=== PATIENT | female | born 1935 | race Caucasian/White ===

== ENCOUNTER 2016-10-18 07:45 | Day surgery (SDC) | payer MEDICARE, BC, MEDICAID ==
[2016-10-18] MEDS ORDERED: Sodium Chloride 0.9% 1,000 ML IV SCH (08:30)
[2016-10-18] MEDS ORDERED: fentaNYL 100 MCG/2 ML SDV ONE (09:13)
[2016-10-18] MEDS ORDERED: Midazolam 1 MG/ML 2 ML SDV ONE (09:13)
[2016-10-18] MEDS ORDERED: Propofol 200 MG/20 ML SDV ONE (09:13)
[2016-10-18] MEDS ORDERED: ceFAZolin 2 GM in Premix Bag 1 BAG IV ONE (09:45)
--- NOTE | 2016-10-18 11:46 | OR ---
DATE OF PROCEDURE: 10/18/2016 PROCEDURE: Colonoscopy. FINDINGS: 1. Cecal polyp, 5 mm approximately; 5 mm, completely removed using cold biopsy forceps. 2. Diverticulosis, mild, limited to sigmoid colon. COMPLICATIONS: None. NUCLEAR PHARMACIST: None. ANESTHESIA: MAC. PREOPERATIVE DIAGNOSIS: History of colon polyps. POSTOPERATIVE DIAGNOSIS: History of colon polyps. RISKS: Risks, benefits, alternatives, and limitations, including, but not limited to infection, bleeding, and perforation were explained to the patient, and she wished to proceed. PROCEDURE IN DETAIL: The patient was placed in left lateral decubitus position. Digital rectal exam was performed without abnormality. The scope was introduced and advanced atraumatically to the cecal valve. The scope was brought back to the ascending, transverse, descending colon, and retroflexed. The aforementioned polyp was identified and completely removed. No other abnormalities were noted except for the aforementioned polyp and mild diverticulosis. No abnormalities on retroflex. The patient tolerated the procedure well. Luis Eduardo Fall MD /[id number]
[2016-10-18 11:56] VITALS: BP 157/68
== END 2016-10-18 11:30 | disposition home or self-care (01) ==
LOC: JP.SDS 07:45
PROVIDERS: ATTEND Surgery
DX: Z12.11 Encounter for screening for malignant neoplasm of colon (principal); Z86.010 Personal history of colon polyps; K63.5 Polyp of colon; K57.30 Diverticulosis of large intestine without perforation or abscess without bleeding; I10 Essential (primary) hypertension; E03.9 Hypothyroidism, unspecified; E78.00 Pure hypercholesterolemia, unspecified
CPT/HCPCS: 45380; J2250; J2704; J3010; J7040; 88305

== ENCOUNTER 2019-12-14 06:19 | Day surgery (SDC) | payer MEDICARE, MEDICAID ==
[2019-12-14] MEDS ORDERED: Sodium Chloride 0.9% 1,000 ML IV SCH (07:00)
[2019-12-14] MEDS ORDERED: Propofol 200 MG/20 ML SDV ONE (07:48)
[2019-12-14 09:20] VITALS: BP 171/89; PULSE 78
--- NOTE | 2019-12-14 14:19 | OR ---
DATE OF PROCEDURE: 12/14/2019 SURGEON: Luis Eduardo Fall MD PROCEDURE: Colonoscopy. FINDINGS: Normal colonoscopy. COMPLICATIONS: None. PROFESSOR IN FAMILY STUDIES: None. ANESTHESIA: MAC. PREOPERATIVE DIAGNOSIS: Screening colonoscopy. POSTOPERATIVE DIAGNOSIS: Screening colonoscopy. RISKS: Risks, benefits, alternatives, and limitations including, but not limited to infection, bleeding, perforation were explained to the patient, who wished to proceed. PROCEDURE IN DETAIL: The patient was placed in a left lateral decubitus position. Digital rectal exam was performed without abnormality. Scope was introduced and advanced atraumatically to the ileocecal valve. A photo was taken of this. Scope was brought back through the ascending, transverse, descending colon, and retroflexed. No evidence of old or new blood. No masses. No polyps. Greater than 8 minutes was used to bring the scope back through the colon and no abnormalities on retroflexion. The patient tolerated the procedure well. Luis Eduardo Fall MD /[id number]
== END 2019-12-14 09:27 | disposition home or self-care (01) ==
LOC: JP.SDS 06:19
PROVIDERS: ATTEND Surgery
DX: Z12.11 Encounter for screening for malignant neoplasm of colon (principal); J45.909 Unspecified asthma, uncomplicated; I10 Essential (primary) hypertension; E03.9 Hypothyroidism, unspecified; Z86.010 Personal history of colon polyps; Z79.899 Other long term (current) drug therapy
CPT/HCPCS: G0105; J2704; J7030

== ENCOUNTER 2021-03-12 22:32 | Inpatient (IN) | payer MEDICARE, MEDICAID ==
--- NOTE | 2021-03-12 23:11 | EDM.PDOC ---
<Bradley Silvestre - Last Filed: 03/13/21 06:36> ED HPI GENERAL MEDICAL PROBLEM - General Chief Complaint: Chest Pain Stated Complaint: [facility] Time Seen by Provider: 03/12/21 22:45 Source of Information: Reports: Patient, EMS History Limitations: Reports: No Limitations - History of Present Illness INITIAL COMMENTS - FREE TEXT/NARRATIVE: 85-year-old female who seems mildly confused, [facility] had persistent substernal burning in her chest earlier this evening after going for a walk. She usually walks to her son's house, then walks home but tonight she needed a ride home because she felt so awful. She has a slight abrasion on her nose and forehead like she bumped into something but she does not remember that, she really has no complaints at this time. EKG shows a right bundle branch block, no previous EKGs to compare. Denies nausea and vomiting, denies fevers or chills. Denies shortness of breath or diaphoresis. She has not felt right for a couple of weeks, she looks real pale. She denies any known blood loss such as dark stools, nosebleeds or other illness. Onset: Sudden Duration: Hour(s): (Burning started fairly suddenly about 3 to 4 hours ago and lasted a couple of hours.) Location: Reports: Chest Quality: Reports: Burning Associated Symptoms: Reports: No Other Symptoms Treatments ARCHITECTURAL ENGINEER: Reports: Aspirin - Related Data Allergies Allergy/AdvReac Type Severity Reaction Status Date / Time procaine [From Novocain] Allergy Other Verified 03/12/21 23:01 Home Meds: Home Meds Albuterol [Proair HFA] 2 puff IH Q4H PRN 09/09/13 [History] Aspirin [Adult Low Dose Aspirin EC] 81 mg PO DAILY 09/09/13 [History] Ferrous Sulfate 325 mg PO DAILY 09/09/13 [History] Fluticasone Propionate [Flovent HFA 220 MCG] 2 puff INH DAILY 09/09/13 [History] cycloSPORINE [Restasis] 1 drop EYEBOTH BID 09/09/13 [History] Amoxicillin 2,000 mg PO ASDIRECTED 10/17/16 [History] Calcium Carbonate/Vitamin D3 [Calcium 600 + D3 Softgel] 1 tab PO DAILY 10/17/16 [History] Carboxymethylcell/Hypromellose [Genteal Gel Drops] 1 drop EYEBOTH BEDTIME 10/17/16 [History] Levothyroxine 50 mcg PO ACBREAKFAST 10/17/16 [History] Metoprolol Tartrate [Lopressor] 25 mg PO BID 10/17/16 [History] atorvaSTATin [Lipitor] 10 mg PO BEDTIME 10/17/16 [History] Travoprost [Travatan Z 0.004% Ophth Soln] 1 drop TOP DAILY 10/04/17 [History] Inhaler, Assist Devices [Aerochamber Mini] 1 each IH DAILY 12/10/19 [History] amLODIPine [Norvasc] 2.5 mg PO DAILY 12/10/19 [History] hydroCHLOROthiazide [Hydrochlorothiazide] 25 mg PO DAILY 12/10/19 [History] timoloL maleate [Timoptic 0.25% Ophth Soln] 1 drop EYEBOTH DAILY 12/10/19 [History] Acetaminophen [Tylenol] 975 mg PO Q4H PRN 03/12/21 [History] Lutein/Min/Vit C/Vit E Acetate [Ocuvite Lutein] 1 cap PO DAILY 03/12/21 [History] Past Medical History HEENT History: Reports: Glaucoma, Hard of Hearing, Impaired Vision, Macular Degeneration Cardiovascular History: Reports: Afib, High Cholesterol, Hypertension, Other (See Below) Other Cardiovascular History: Aortic Stenosis Respiratory History: Reports: Asthma Gastrointestinal History: Reports: Colon Polyp Genitourinary History: Reports: None [employer] History: Reports: Musculoskeletal History: Reports: Arthritis, Osteoporosis Endocrine/Metabolic History: Reports: Hypothyroidism, Osteoporosis Hematologic History: Reports: Iron Deficiency Oncologic (Cancer) History: Reports: Basal Cell Carcinoma Dermatologic History: Reports: Other (See Below) Other Dermatologic History: 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 - Infectious Disease History Infectious Disease History: Reports: Chicken Pox, Measles, Mumps - Past Surgical History HEENT Surgical History: Reports: Cataract Surgery Cardiovascular Surgical History: Reports: Valve Replacement Respiratory Surgical History: Reports: None GI Surgical History: Reports: Colonoscopy Female Surgical History: Reports: Hysterectomy, Salpingo-Oophorectomy Musculoskeletal Surgical History: Reports: None Oncologic Surgical History: Reports: None Dermatological Surgical History: Reports: Skin Biopsy Social & Family History - Family History Family Medical History: No Pertinent Family History - Tobacco Use Tobacco Use Status *Q: Never Tobacco User - Caffeine Use Caffeine Use: Reports: Coffee - Recreational Drug Use Recreational Drug Use: No ED ROS GENERAL - Review of Systems Review Of Systems: See Below Constitutional: Reports: Malaise. Denies: Fever, Chills HEENT: Reports: No Symptoms Respiratory: Denies: Shortness of Breath Cardiovascular: Denies: Chest Pain GI/Abdominal: Denies: Abdominal Pain, Constipation, Diarrhea, Hematemesis, Nausea, Vomiting : Reports: No Symptoms Musculoskeletal: Reports: No Symptoms Skin: Reports: Pallor, Other (She has a small abrasion on her forehead and nose) Neurological: Reports: Dizziness, Weakness Psychiatric: Reports: No Symptoms ED EXAM, GENERAL - Physical Exam Exam: See Below Exam Limited By: No Limitations General Appearance: Alert, No Apparent Distress Eye Exam: Bilateral Eye: Other (Pale conjunctiva) Head: Other (Small abrasion in the middle of the forehead on the bridge of the nose) Neck: Supple, Non-Tender Respiratory/Chest: No Respiratory Distress, Lungs Clear Cardiovascular: Regular Rate, Rhythm, Systolic Murmur GI/Abdominal: Soft, Non-Tender Extremities: No Pedal Edema Neurological: Alert, Oriented, No Motor/Sensory Deficits Psychiatric: Normal Affect, Normal Mood Skin Exam: Warm, Dry, Pallor #1 Interpretation EKG Date: 03/12/21 Rhythm: NSR QRS: RBBB EKG Interpretation Comments: No previous EKGs to compare Course - Re-Assessments/Exams Free Text/Narrative Re-Assessment/Exam: 03/12/21 23:31 EKG was negative for acute findings, she did receive some aspirin in route. CBC CMP and troponin were obtained. Patient is asymptomatic and stable while in the emergency room. 03/13/21 01:03 Hemoglobin returned 5.9, this is compared to over 13 in August of this year. 2 uni ts of RBCs type and crossed and prepare for transfusion. There are no beds available in the hospital or in the region, this patient can be transfused overnight, hemoglobin rechecked in the morning along with a repeat troponin which was 0.08. Admission can be considered at that time for evaluation of blood loss. 03/13/21 01:06 This is likely a GI bleed as her BUN return 44. 03/13/21 06:36 Patient rested comfortably most of the night, she did have a syncopal episode such as getting up to go to the bathroom initially. After the second unit of blood was drawn, 30 minutes later hemoglobin and troponin were drawn. Further treatment and follow-up can be dictated by the results. 03/13/21 06:37 Care was turned over to Dr. Renteria pending results. Departure - Departure Disposition: Admitted As Inpatient 67 Clinical Impression: Anemia Qualifiers: Anemia type: unspecified type Qualified Code(s): D64.9 - Anemia, unspecified - Discharge Information Referrals: PCP,None [Primary Care Provider] - Forms: ED Department Discharge Sepsis Event Note (ED) - Evaluation Sepsis Screening Result: No Definite Risk <Cody Renteria - Last Filed: 03/13/21 08:45> Course - Vital Signs Text/Narrative:: Dr. Noriega called @ [facility] Last Recorded V/S: Last Vital Signs Temp 36.6 C 03/13/21 06:08 Pulse 82 03/13/21 07:03 Resp 16 03/13/21 07:03 BP 100/55 L 03/13/21 07:03 Pulse Ox 97 03/13/21 07:03 - Orders/Labs/Meds Orders: Active Orders 24 hr Category Date Time Status PATIENT RETYPE [BBK] Stat Lab 03/12/21 23:10 Results RED BLOOD CELLS LP [BBK] Stat Lab 03/12/21 23:10 Results TYPE AND SCREEN [BBK] Stat Lab 03/12/21 23:10 Results Transfuse Red Blood Cells [COMM] Routine Oth 03/12/21 23:34 Ordered EKG 12 Lead [EK] Routine Ther 03/12/21 23:01 Ordered Labs: Laboratory Tests 03/12/21 03/12/21 03/12/21 Range/Units 23:10 23:11 23:11 WBC 10.6 (4.5-11.0) K/uL RBC 2.05 L (3.30-5.50) M/uL Hgb 5.9 L* (12.0-15.0) g/dL Hct 18.9 L (36.0-48.0) % MCV 92 (80-98) fL MCH 29 (27-31) pg MCHC 31 L (32-36) % Plt Count 281 (150-400) K/uL Neut % (Auto) 90.1 H (36-66) % Lymph % (Auto) 4.2 L (24-44) % Treasure % (Auto) 5.4 (2-6) % Eos % (Auto) 0.1 L (2-4) % Baso % (Auto) 0.2 (0-1) % Sodium 132 L (140-148) mmol/L Potassium 3.6 (3.6-5.2) mmol/L Chloride 95 L (100-108) mmol/L Carbon Dioxide 29 (21-32) mmol/L Anion Gap 11.6 (5.0-14.0) mmol/L BUN 44 H (7-18) mg/dL Creatinine 0.6 (0.6-1.0) mg/dL Est Cr Clr Drug Dosing 49.98 mL/min Estimated GFR (MDRD) > 60 (>60) Glucose 145 H (74-106) mg/dL Calcium 8.4 L (8.5-10.1) mg/dL Total Bilirubin 0.3 (0.2-1.0) mg/dL AST 28 (15-37) U/L ALT 43 (12-78) U/L Alkaline Phosphatase 77 (46-116) U/L Troponin I 0.081 H* (0.000-0.056) ng/mL Total Protein 5.0 L (6.4-8.2) g/dL Albumin 2.6 L (3.4-5.0) g/dL Globulin 2.4 (2.3-3.5) g/dL Albumin/Globulin Ratio 1.1 L (1.2-2.2) Blood Type B POSITIVE Gel Antibody Screen Negative Crossmatch See Detail 03/13/21 03/13/21 Range/Units 06:47 06:47 WBC 7.8 (4.5-11.0) K/uL RBC 3.07 L (3.30-5.50) M/uL Hgb 8.8 L D (12.0-15.0) g/dL Hct 26.7 L (36.0-48.0) % MCV 87 (80-98) fL MCH 29 (27-31) pg MCHC 33 (32-36) % Plt Count 220 (150-400) K/uL Neut % (Auto) 69.8 H (36-66) % Lymph % (Auto) 18.7 L (24-44) % Treasure % (Auto) 11.4 H (2-6) % Eos % (Auto) 0.0 L (2-4) % Baso % (Auto) 0.1 (0-1) % Sodium 136 L (140-148) mmol/L Potassium 3.7 (3.6-5.2) mmol/L Chloride 100 (100-108) mmol/L Carbon Dioxide 30 (21-32) mmol/L Anion Gap 9.7 (5.0-14.0) mmol/L BUN 35 H (7-18) mg/dL Creatinine 0.4 L (0.6-1.0) mg/dL Est Cr Clr Drug Dosing 74.97 mL/min Estimated GFR (MDRD) > 60 (>60) Glucose 99 (74-106) mg/dL Calcium 7.9 L (8.5-10.1) mg/dL Total Bilirubin (0.2-1.0) mg/dL AST (15-37) U/L ALT (12-78) U/L Alkaline Phosphatase (46-116) U/L Troponin I 0.138 H* (0.000-0.056) ng/mL Total Protein (6.4-8.2) g/dL Albumin (3.4-5.0) g/dL Globulin (2.3-3.5) g/dL Albumin/Globulin Ratio (1.2-2.2) Blood Type Gel Antibody Screen Crossmatch Meds: Medications Discontinued Medications Generic Name Dose Route Start Last Admin Trade Name Freq PRN Reason Stop Dose Admin Ondansetron HCl 4 mg 03/13/21 03:44 03/13/21 03:57 Ondansetron 4 Mg Tab.Dis PO 03/13/21 03:45 4 mg ONETIME ONE Administration Departure - Departure Time of Disposition: 09:00 Condition: Fair - Discharge Information *PRESCRIPTION DRUG MONITORING PROGRAM REVIEWED*: Not Applicable *COPY OF PRESCRIPTION DRUG MONITORING REPORT IN PATIENT LILLIE: Not Applicable Sepsis Event Note (ED) - Focused Exam Vital Signs: Vital Signs Temp Temp Pulse Resp BP Pulse Ox 03/13/21 07:03 82 16 100/55 L 97 03/13/21 06:08 36.6 C 84 14 104/55 L 97 03/13/21 05:45 36.9 C 90 16 103/52 L 97 03/13/21 05:15 36.9 C 83 16 109/55 L 97 03/13/21 04:45 36.9 C 87 20 110/55 L 97 03/13/21 04:15 37.2 C 81 21 H 117/53 L 99 03/13/21 04:00 37.2 C 84 20 104/54 L 96 03/13/21 03:45 37.2 C 87 15 110/56 L 98 03/13/21 03:30 37.0 C 90 20 111/55 L 99 03/13/21 03:13 37.0 C 89 14 115/61 98 03/13/21 03:12 36.6 C 89 17 105/55 L 98 03/13/21 03:00 36.4 C 89 16 98/50 L 98 03/13/21 02:30 36.6 C 89 16 108/55 L 97 03/13/21 02:00 36.5 C 98 14 120/66 98 03/13/21 01:30 36.6 C 93 16 106/62 99 03/13/21 01:15 36.4 C 87 16 97/44 L 98 03/13/21 01:00 36.5 C 89 16 107/52 L 99 03/13/21 00:45 36.5 C 92 15 106/56 L 98 03/13/21 00:33 36.4 C 85 15 120/55 L 97 03/12/21 23:00 96 16 103/41 L 99 03/12/21 22:42 36.2 C 92 14 116/36 L 100 03/12/21 22:36 36.2 C 92 14 116/36 L 100
[2021-03-13] MEDS ORDERED: Ondansetron 4 MG/2 ML SDV IVPUSH ONE (03:28)
[2021-03-13] MEDS ORDERED: Ondansetron 4 MG Tab.DIS PO ONE (03:44)
[2021-03-13] MEDS ORDERED: Pantoprazole 40 MG Vial IVPUSH ONE (10:45)
--- NOTE | 2021-03-13 10:55 | PCM.HP.2 ---
H&P History of Present Illness - General Date of Service: 03/13/21 Admit Problem/Dx: Admission Diagnosis/Problem Admission Diagnosis/Problem Anemia due to blood loss Source of Information: Patient, Family, Provider History Limitations: Reports: No Limitations - History of Present Illness Initial Comments - Free Text/Narative: CC: I got so weak HPI: Ana presents to the emergency room today with weakness and dyspnea with exertion. She reports that she has felt a little bit off for maybe a couple of weeks but nothing too specific. Last night she was more weak and did not have much of an appetite. Overnight she developed some burning chest pain. She describes this as mild and substernal. Pain lasted for a couple of hours before going away without any specific intervention. The chest pain did worry her so she came in for evaluation. She has reported some mild indigestion and belching but has not had any heartburn necessarily. No complaints of abdominal pain. No change in bowel habits. Specifically she has not had any hematemesis, melena or blood in her stool. She has not noticed any fevers or chills. Up until yesterday she had been walking every day without any significant limitations. Yesterday she was more fatigued than usual after her walk. Work-up in the emergency room revealed a hemoglobin of less than 6. She did receive 2 units of blood overnight and her hemoglobin rechecked this morning was over 8. There is concern for gastrointestinal bleeding with most recent hemoglobin level of more than 13 a few months ago. While she was in the emergency room overnight she did have a syncopal episode when she got very weak. This was very short and she recovered without any deficits. She will be admitted for additional management. - Related Data Allergies/Adverse Reactions: Allergies Allergy/AdvReac Type Severity Reaction Status Date / Time procaine [From Novocain] Allergy Other Verified 03/12/21 23:01 Home Medications: Home Meds Albuterol [Proair HFA] 2 puff IH Q4H PRN 09/09/13 [History] Aspirin [Adult Low Dose Aspirin EC] 81 mg PO DAILY 09/09/13 [History] Ferrous Sulfate 325 mg PO DAILY 09/09/13 [History] Fluticasone Propionate [Flovent HFA 220 MCG] 2 puff INH DAILY 09/09/13 [History] cycloSPORINE [Restasis] 1 drop EYEBOTH BID 09/09/13 [History] Amoxicillin 2,000 mg PO ASDIRECTED 10/17/16 [History] Calcium Carbonate/Vitamin D3 [Calcium 600 + D3 Softgel] 1 tab PO DAILY 10/17/16 [History] Carboxymethylcell/Hypromellose [Genteal Gel Drops] 1 drop EYEBOTH BEDTIME 10/17/16 [History] Levothyroxine 50 mcg PO ACBREAKFAST 10/17/16 [History] Metoprolol Tartrate [Lopressor] 25 mg PO BID 10/17/16 [History] atorvaSTATin [Lipitor] 10 mg PO BEDTIME 10/17/16 [History] Travoprost [Travatan Z 0.004% Ophth Soln] 1 drop TOP DAILY 10/04/17 [History] Inhaler, Assist Devices [Aerochamber Mini] 1 each IH DAILY 12/10/19 [History] amLODIPine [Norvasc] 2.5 mg PO DAILY 12/10/19 [History] hydroCHLOROthiazide [Hydrochlorothiazide] 25 mg PO DAILY 12/10/19 [History] timoloL maleate [Timoptic 0.25% Ophth Soln] 1 drop EYEBOTH DAILY 12/10/19 [History] Acetaminophen [Tylenol] 975 mg PO Q4H PRN 03/12/21 [History] Lutein/Min/Vit C/Vit E Acetate [Ocuvite Lutein] 1 cap PO DAILY 03/12/21 [History] Past Medical History HEENT History: Reports: Glaucoma, Hard of Hearing, Impaired Vision, Macular Degeneration Cardiovascular History: Reports: Afib, High Cholesterol, Hypertension, Other (See Below) Other Cardiovascular History: Aortic Stenosis Respiratory History: Reports: Asthma Gastrointestinal History: Reports: Colon Polyp Genitourinary History: Reports: None [employer] History: Reports: Musculoskeletal History: Reports: Arthritis, Osteoporosis Endocrine/Metabolic History: Reports: Hypothyroidism, Osteoporosis Hematologic History: Reports: Iron Deficiency Oncologic (Cancer) History: Reports: Basal Cell Carcinoma Dermatologic History: Reports: Other (See Below) Other Dermatologic History: 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 - Infectious Disease History Infectious Disease History: Reports: Chicken Pox, Measles, Mumps - Past Surgical History HEENT Surgical History: Reports: Cataract Surgery Cardiovascular Surgical History: Reports: Valve Replacement Respiratory Surgical History: Reports: None GI Surgical History: Reports: Colonoscopy Female Surgical History: Reports: Hysterectomy, Salpingo-Oophorectomy Musculoskeletal Surgical History: Reports: None Oncologic Surgical History: Reports: None Dermatological Surgical History: Reports: Skin Biopsy Social & Family History - Family History Family Medical History: No Pertinent Family History - Tobacco Use Tobacco Use Status *Q: Never Tobacco User - Caffeine Use Caffeine Use: Reports: Coffee - Alcohol Use Alcohol Use History: No Alcohol Use in Last Twelve Months: No - Recreational Drug Use Recreational Drug Use: No H&P Review of Systems - Review of Systems: Review Of Systems: See Below Free Text/Narrative: A complete 12 point review of systems was obtained. Pertinent positives and negatives are noted in the history of present illness. All other systems were reviewed and were negative except as noted. Exam - Exam Exam: See Below - Vital Signs Vital Signs: Last Vital Signs Temp 36.6 C 03/13/21 06:08 Pulse 82 03/13/21 09:52 Resp 14 03/13/21 09:52 BP 101/55 L 03/13/21 09:52 Pulse Ox 96 03/13/21 09:52 Weight: 45.359 kg - Exam Quality Assessment: No: Supplemental Oxygen General: Alert, Oriented, Cooperative. No: Mild Distress HEENT: Conjunctiva Clear, Mucosa Moist & [place], Other (subconjunctival palor ). No: Scleral Icterus Neck: Supple, Trachea Midline. No: Lymphadenopathy Lungs: Clear to Auscultation, Normal Respiratory Effort Cardiovascular: Regular Rate, Irregular Rhythm, Systolic Murmur. No: Gallop/S3 GI/Abdominal Exam: Normal Bowel Sounds, Soft, Non-Tender, No Distention Back Exam: Normal Inspection, Full Range of Motion Extremities: No Pedal Edema, Other (no axillary LAD). No: Increased Warmth Peripheral Pulses: 2+: Dorsalis Pedis (L), Dorsalis Pedis (R) Skin: Warm, Dry. No: Rash Neuro Extensive - Mental Status: Alert, Oriented x3, Nl Response to Commands Neuro Extensive - Motor, Sensory, Reflexes: No: Dysarthria, Abnormal Motor, Tremor Psychiatric: Alert, Normal Affect - Patient Data Lab Results Last 24 hrs: Laboratory Results - last 24 hr 03/12/21 03/12/21 03/12/21 Range/Units 23:10 23:11 23:11 WBC 10.6 (4.5-11.0) K/uL RBC 2.05 L (3.30-5.50) M/uL Hgb 5.9 L* (12.0-15.0) g/dL Hct 18.9 L (36.0-48.0) % MCV 92 (80-98) fL MCH 29 (27-31) pg MCHC 31 L (32-36) % Plt Count 281 (150-400) K/uL Neut % (Auto) 90.1 H (36-66) % Lymph % (Auto) 4.2 L (24-44) % [place] % (Auto) 5.4 (2-6) % Eos % (Auto) 0.1 L (2-4) % Baso % (Auto) 0.2 (0-1) % Sodium 132 L (140-148) mmol/L Potassium 3.6 (3.6-5.2) mmol/L Chloride 95 L (100-108) mmol/L Carbon Dioxide 29 (21-32) mmol/L Anion Gap 11.6 (5.0-14.0) mmol/L BUN 44 H (7-18) mg/dL Creatinine 0.6 (0.6-1.0) mg/dL Est Cr Clr Drug Dosing 49.98 mL/min Estimated GFR (MDRD) > 60 (>60) Glucose 145 H (74-106) mg/dL Calcium 8.4 L (8.5-10.1) mg/dL Total Bilirubin 0.3 (0.2-1.0) mg/dL AST 28 (15-37) U/L ALT 43 (12-78) U/L Alkaline Phosphatase 77 (46-116) U/L Troponin I 0.081 H* (0.000-0.056) ng/mL Total Protein 5.0 L (6.4-8.2) g/dL Albumin 2.6 L (3.4-5.0) g/dL Globulin 2.4 (2.3-3.5) g/dL Albumin/Globulin Ratio 1.1 L (1.2-2.2) Blood Type B POSITIVE Gel Antibody Screen Negative Crossmatch See Detail 03/13/21 03/13/21 Range/Units 06:47 06:47 WBC 7.8 (4.5-11.0) K/uL RBC 3.07 L (3.30-5.50) M/uL Hgb 8.8 L D (12.0-15.0) g/dL Hct 26.7 L (36.0-48.0) % MCV 87 (80-98) fL MCH 29 (27-31) pg MCHC 33 (32-36) % Plt Count 220 (150-400) K/uL Neut % (Auto) 69.8 H (36-66) % Lymph % (Auto) 18.7 L (24-44) % [place] % (Auto) 11.4 H (2-6) % Eos % (Auto) 0.0 L (2-4) % Baso % (Auto) 0.1 (0-1) % Sodium 136 L (140-148) mmol/L Potassium 3.7 (3.6-5.2) mmol/L Chloride 100 (100-108) mmol/L Carbon Dioxide 30 (21-32) mmol/L Anion Gap 9.7 (5.0-14.0) mmol/L BUN 35 H (7-18) mg/dL Creatinine 0.4 L (0.6-1.0) mg/dL Est Cr Clr Drug Dosing 74.97 mL/min Estimated GFR (MDRD) > 60 (>60) Glucose 99 (74-106) mg/dL Calcium 7.9 L (8.5-10.1) mg/dL Total Bilirubin (0.2-1.0) mg/dL AST (15-37) U/L ALT (12-78) U/L Alkaline Phosphatase (46-116) U/L Troponin I 0.138 H* (0.000-0.056) ng/mL Total Protein (6.4-8.2) g/dL Albumin (3.4-5.0) g/dL Globulin (2.3-3.5) g/dL Albumin/Globulin Ratio (1.2-2.2) Blood Type Gel Antibody Screen Crossmatch Result Diagrams: 03/13/21 06:47 03/13/21 06:47 #1 Interpretation EKG Date: 03/12/21 Rhythm: NSR Rate (Beats/Min): 89 Matteson: RAD-Right Matteson Deviation P-Wave: Present QRS: RBBB ST-T: Normal QT: Normal CA/PQ Interval: normal Comparison: NA - No Prior EKG EKG Interpretation Comments: This image was personally reviewed Sepsis Event Note - Evaluation Sepsis Screening Result: No Definite Risk - Focused Exam Vital Signs: Vital Signs Temp Pulse Resp BP Pulse Ox 03/13/21 09:52 82 14 101/55 L 96 03/13/21 08:00 95 17 121/63 99 03/13/21 07:03 82 16 100/55 L 97 03/13/21 06:08 36.6 C 84 14 104/55 L 97 03/13/21 05:45 36.9 C 90 16 103/52 L 97 03/13/21 05:15 36.9 C 83 16 109/55 L 97 03/13/21 04:45 36.9 C 87 20 110/55 L 97 03/13/21 04:15 37.2 C 81 21 H 117/53 L 99 03/13/21 04:00 37.2 C 84 20 104/54 L 96 03/13/21 03:45 37.2 C 87 15 110/56 L 98 03/13/21 03:30 37.0 C 90 20 111/55 L 99 03/13/21 03:13 37.0 C 89 14 115/61 98 03/13/21 03:12 36.6 C 89 17 105/55 L 98 03/13/21 03:00 36.4 C 89 16 98/50 L 98 03/13/21 02:30 36.6 C 89 16 108/55 L 97 03/13/21 02:00 36.5 C 98 14 120/66 98 03/13/21 01:30 36.6 C 93 16 106/62 99 03/13/21 01:15 36.4 C 87 16 97/44 L 98 03/13/21 01:00 36.5 C 89 16 107/52 L 99 03/13/21 00:45 36.5 C 92 15 106/56 L 98 03/13/21 00:33 36.4 C 85 15 120/55 L 97 03/12/21 23:00 96 16 103/41 L 99 *Q Meaningful Use (ADM) - VTE *Q VTE Pharmacological Contraindications *Q: Active Hemorrhage - VTE Risk Assess *Q Each Risk Factor Represents 1 Point: Abnormal Pulmonary Function (COPD) Total Score 1 Point Risk Factors: 1 Each Risk Factor Represents 2 Points: None Total Score 2 Point Risk Factors: 0 Each Risk Factor Represents 3 Points: Age 75 Years or Greater Total Score 3 Point Risk Factors: 3 Each Risk Factor Represents 5 Points: None Total Score 5 Point Risk Factors: 0 Venous Thromboembolism Risk Factor Score *Q: 4 - Problem List (1) GI bleed SNOMED Code(s): 58036472 ICD Code: K92.2 - GASTROINTESTINAL HEMORRHAGE, UNSPECIFIED Status: Acute Current Visit: Yes Qualifiers: GI bleed type/associated pathology: unspecified gastrointestinal hemorrhage type Qualified Code(s): K92.2 - Gastrointestinal hemorrhage, unspecified (2) Anemia due to blood loss, acute SNOMED Code(s): 713992494 ICD Code: D62 - ACUTE POSTHEMORRHAGIC ANEMIA Status: Acute Current Visit: Yes (3) Syncope SNOMED Code(s): 976066357 ICD Code: R55 - SYNCOPE AND COLLAPSE Status: Acute Current Visit: Yes Qualifiers: Syncope type: unspecified Qualified Code(s): R55 - Syncope and collapse (4) Elevated troponin SNOMED Code(s): 477501890, 137223733, 022471783 ICD Code: R77.8 - OTHER SPECIFIED ABNORMALITIES OF PLASMA PROTEINS Status: Acute Current Visit: Yes Problem List Initiated/Reviewed/Updated: Yes Orders Last 24hrs: Active Orders 24 hr Category Date Time Status Patient Status Manage Transfer [TRANSFER] Routine ADT 03/13/21 10:45 Ordered PATIENT RETYPE [BBK] Stat Lab 03/12/21 23:10 Results RED BLOOD CELLS LP [BBK] Stat Lab 03/12/21 23:10 Results TYPE AND SCREEN [BBK] Stat Lab 03/12/21 23:10 Results Transfuse Red Blood Cells [COMM] Routine Oth 03/12/21 23:34 Ordered Resuscitation Status Routine Resus Stat 03/13/21 10:48 Ordered EKG 12 Lead [EK] Routine Ther 03/12/21 23:01 Ordered Assessment/Plan Comment:: ASSESSMENT AND PLAN - Gastrointestinal hemorrhage, suspected-complicated by anemia due to blood loss and syncope. Unclear whether upper or lower. May be more of a subacute type bleed with no melena or hematochezia noted. She has developed orthostasis and a mild troponin elevation because of the blood loss. Hemoglobin has improved with blood transfusion. -IV PPI -EGD this afternoon -Colonoscopy tomorrow if this is clear -Type and cross 2 units -Hemoglobin this evening and again in the morning Troponin elevation-mild, likely demand ischemia in the setting of severe anemia. Maintenance issues - -DVT prophylaxis-mechanical -GI prophylaxis-PPI -Nutrition-n.p.o. until after her procedure -Yun catheter-not indicated CODE STATUS -DNR/DNI Admission justification -this patient will be admitted for inpatient services and is medically appropriate meeting medical necessity for inpatient admission as outlined in my documentation. I reasonably expect the patient will require inpatient services that span a period time over 2 midnights. I reasonably expect this patient to be discharged or transferred within 96 hours after admission to the [facility]. Disposition -I anticipate discharge home after the hospital stay Primary care physician - Bebeto Noriega M.D. - Mortality Measure Prognosis:: Good
[2021-03-13] MEDS ORDERED: Ondansetron 4 MG Tab.DIS PO PRN (10:58)
[2021-03-13] MEDS ORDERED: LORazepam 2 MG/ML SDV IVPUSH PRN (10:58)
[2021-03-13] MEDS ORDERED: Melatonin 3 MG Tab PO PRN (10:58)
[2021-03-13] MEDS ORDERED: Magnesium Hydroxide 400 MG/5 ML Susp 30 ML Cup PO PRN (10:58)
[2021-03-13] MEDS ORDERED: Albuterol 0.083% 2.5 MG/3 ML Neb Soln NEB PRN (10:58)
[2021-03-13] MEDS ORDERED: Acetaminophen 325 MG Tab PO PRN (10:58)
[2021-03-13] MEDS ORDERED: Ondansetron 4 MG/2 ML SDV IV PRN (10:58)
[2021-03-13] MEDS ORDERED: Lactated Ringers 1,000 ML IV SCH (11:00)
[2021-03-13] MEDS ORDERED: Propofol 200 MG/20 ML SDV ONE (11:41)
[2021-03-13] MEDS ORDERED: Lactated Ringers 1,000 ML ONE (11:48)
--- NOTE | 2021-03-13 13:32 | OR ---
DATE OF PROCEDURE: 03/13/2021 SURGEON: Luis Eduardo Fall MD PROCEDURE: Esophagogastroduodenoscopy. FINDINGS: Normal esophagogastroduodenoscopy. COMPLICATIONS: None. RATING EXAMINER: None. PREOPERATIVE DIAGNOSIS: Anemia. POSTOPERATIVE DIAGNOSIS: Anemia. RISKS: Risks, benefits, alternatives, and limitations including, but not limited to infection, bleeding, perforation, false positives and false negatives were explained to the patient who wished to proceed. PROCEDURE IN DETAIL: The patient was placed in left lateral decubitus position. The EGD scope was introduced and advanced atraumatically to second part of the duodenum. No evidence of duodenitis or ulceration. Within the stomach itself, there was no ulceration. No old or new blood. The patient may be had a very small mild early gastritis, but no etiology for the large hemoglobin drop. The GE junction was symmetrical. The esophagus was inspected without abnormality. The patient tolerated the procedure well. Luis Eduardo Fall MD /[id number]
[2021-03-13] MEDS ORDERED: Bisacodyl 5 MG Tab PO ONE ×2 (14:00→20:00)
[2021-03-13] MEDS: Timolol Maleate 0.25% Ophth Soln 5 ML Bottle EYEBOTH SCH (14:45)
[2021-03-13] MEDS ORDERED: Polyethylene Glycol 3350 Powder 238 GM Bot PO ONE (17:00)
[2021-03-13] MEDS ORDERED: RESTASIS EYEBOTH SCH (21:00)
[2021-03-13] MEDS ORDERED: HYPROMELLOSE EYEBOTH SCH (21:00)
[2021-03-13] MEDS ORDERED: CARBOXYMETHYLCELLULOSE EYEBOTH SCH (21:00)
[2021-03-13] MEDS: atorvaSTATin 10 MG Tab PO SCH (21:33)
[2021-03-13] MEDS: Metoprolol Tartrate 25 MG Tab PO SCH (21:34)
[2021-03-13] MEDS: Latanoprost 0.005% Ophth Soln 2.5 ML Bottle EYEBOTH SCH (21:34)
[2021-03-13] MEDS: Hypromellose 0.3% Ophth Soln 15 ML Bottle EYEBOTH SCH (21:35)
[2021-03-13] MEDS ORDERED: Pantoprazole 40 MG Vial IV SCH (23:00)
[2021-03-14] MEDS ORDERED: Propofol 200 MG/20 ML SDV ONE (07:20)
[2021-03-14] MEDS: Mometasone Furoate HFA 100mcg/Puff 13 GM Inhaler INH SCH (08:04)
[2021-03-14] MEDS: Levothyroxine 25 MCG Tab PO SCH (08:31)
[2021-03-14] MEDS: Metoprolol Tartrate 25 MG Tab PO SCH ×3 (08:32→21:45)
[2021-03-14] MEDS: amLODIPine 5 MG Tab PO SCH ×2 (08:32→09:46)
[2021-03-14] MEDS: Timolol Maleate 0.25% Ophth Soln 5 ML Bottle EYEBOTH SCH (08:33)
[2021-03-14] MEDS ORDERED: Hypromellose 0.3% Ophth Soln 15 ML Bottle EYEBOTH PRN (08:41)
--- NOTE | 2021-03-14 11:29 | PCM.PN ---
- General Info Date of Service: 03/14/21 Subjective Update: EGD yesterday showed a normal esophagus and stomach. There were no acute events overnight. Patient did not tolerate her prep very well and it took her a long t rozina. In the end the prep was incomplete and she still had some pasty stool this morning. Hemoglobin is down to 7.5. No abdominal pain or nausea. No hematochezia or melena. No fevers. Functional Status: Reports: Pain Controlled - Review of Systems General: Reports: Weakness. Denies: Fever Gastrointestinal: Denies: Hematochezia, Melena - Patient Data Vitals - Most Recent: Last Vital Signs Temp 36.3 C 03/14/21 11:22 Pulse 67 03/14/21 11:22 Resp 18 03/14/21 11:22 BP 117/62 03/14/21 11:22 Pulse Ox 96 03/14/21 11:00 Weight - Most Recent: 45.132 kg I&O - Last 24 Hours: Intake & Output 03/13/21 03/14/21 03/14/21 22:59 06:59 14:59 Intake Total 344 1999 240 Balance 344 1999 240 Lab Results Last 24 Hours: Laboratory Results - last 24 hr 03/12/21 03/13/21 03/13/21 Range/Units 23:10 10:59 18:04 WBC (4.5-11.0) K/uL RBC (3.30-5.50) M/uL Hgb 8.2 L (12.0-15.0) g/dL Hct (36.0-48.0) % MCV (80-98) fL MCH (27-31) pg MCHC (32-36) % Plt Count (150-400) K/uL Sodium (140-148) mmol/L Potassium (3.6-5.2) mmol/L Chloride (100-108) mmol/L Carbon Dioxide (21-32) mmol/L Anion Gap (5.0-14.0) mmol/L BUN (7-18) mg/dL Creatinine (0.6-1.0) mg/dL Est Cr Clr Drug Dosing mL/min Estimated GFR (MDRD) (>60) Glucose (74-106) mg/dL Calcium (8.5-10.1) mg/dL SARS CoV-2 RNA Rapid ALISSA Negative Blood Type B POSITIVE Gel Antibody Screen Negative Crossmatch See Detail 03/14/21 03/14/21 Range/Units 05:45 05:45 WBC 7.3 (4.5-11.0) K/uL RBC 2.71 L (3.30-5.50) M/uL Hgb 7.5 L (12.0-15.0) g/dL Hct 24.4 L (36.0-48.0) % MCV 90 (80-98) fL MCH 28 (27-31) pg MCHC 31 L (32-36) % Plt Count 206 (150-400) K/uL Sodium 134 L (140-148) mmol/L Potassium 4.3 (3.6-5.2) mmol/L Chloride 101 (100-108) mmol/L Carbon Dioxide 29 (21-32) mmol/L Anion Gap 8.3 (5.0-14.0) mmol/L BUN 17 D (7-18) mg/dL Creatinine 0.4 L (0.6-1.0) mg/dL Est Cr Clr Drug Dosing 74.59 mL/min Estimated GFR (MDRD) > 60 (>60) Glucose 86 (74-106) mg/dL Calcium 7.6 L (8.5-10.1) mg/dL SARS CoV-2 RNA Rapid ALISSA Blood Type Gel Antibody Screen Crossmatch Med Orders - Current: Current Medications Acetaminophen (Acetaminophen 325 Mg Tab) 650 mg PO Q4H PRN PRN Reason: Pain (Mild 1-3)/fever Albuterol (Albuterol 0.083% 2.5 Mg/3 Ml Neb Soln) 2.5 mg NEB Q4H PRN PRN Reason: Shortness Of Breath/wheezing Amlodipine Besylate (Amlodipine 5 Mg Tab) 2.5 mg PO DAILY [facility] Last Admin: 03/14/21 09:46 Dose: 2.5 mg Documented by: Artificial Tears (Hypromellose 0.3% Ophth Soln 15 Ml Bottle) 0 ml EYEBOTH BEDTIME [facility] Last Admin: 03/13/21 21:35 Dose: 1 drop Documented by: Artificial Tears (Hypromellose 0.3% Ophth Soln 15 Ml Bottle) 0 ml EYEBOTH QID PRN PRN Reason: DRY EYES Atorvastatin Calcium (Atorvastatin 10 Mg Tab) 10 mg PO BEDTIME [facility] Last Admin: 03/13/21 21:33 Dose: 10 mg Documented by: Bisacodyl (Bisacodyl 5 Mg Tab) 10 mg PO ONETIME ONE Stop: 03/15/21 11:01 Latanoprost (Latanoprost 0.005% Ophth Soln 2.5 Ml Bottle) 0 ml EYEBOTH BEDTIME [facility] Last Admin: 03/13/21 21:34 Dose: 1 drop Documented by: Levothyroxine Sodium (Levothyroxine 25 Mcg Tab) 50 mcg PO ACBREAKFAST [facility] Last Admin: 03/14/21 08:31 Dose: 50 mcg Documented by: Lorazepam (Lorazepam 2 Mg/Ml Sdv) 0.5 mg IVPUSH Q4H PRN PRN Reason: Nausea/Vomiting Magnesium Hydroxide (Magnesium Hydroxide 400 Mg/5 Ml Susp 30 Ml Cup) 30 ml PO Q12H PRN PRN Reason: Constipation Melatonin (Melatonin 3 Mg Tab) 9 mg PO BEDTIME PRN PRN Reason: sleep Metoprolol Tartrate (Metoprolol Tartrate 25 Mg Tab) 25 mg PO BID [facility] Last Admin: 03/14/21 09:46 Dose: 25 mg Documented by: Mometasone Furoate (Mometasone Furoate Hfa 100mcg/Puff 13 Gm Inhaler) 0 gm INH DAILY [facility] Last Admin: 03/14/21 08:04 Dose: 2 puff Documented by: Ondansetron HCl (Ondansetron 4 Mg/2 Ml Sdv) 4 mg IV Q6H PRN PRN Reason: Nausea/Vomiting Ondansetron HCl (Ondansetron 4 Mg Tab.Dis) 4 mg PO Q6H PRN PRN Reason: Nausea able to take PO Polyethylene Glycol (Polyethylene Glycol 3350 Powder 238 Gm Bot) 238 gm PO ONETIME ONE Stop: 03/15/21 13:01 Senna/Docusate Sodium (Docusate Sodium/Sennosides 50-8.6 Mg Tab) 1 tab PO BID PRN PRN Reason: Constipation Timolol Maleate (Timolol Maleate 0.25% Ophth Soln 5 Ml Bottle) 0 ml EYEBOTH DAILY [facility] Last Admin: 03/14/21 08:33 Dose: 1 drop Documented by: Discontinued Medications Bisacodyl (Bisacodyl 5 Mg Tab) 10 mg PO ONETIME ONE Stop: 03/13/21 14:01 Last Admin: 03/13/21 14:45 Dose: 10 mg Documented by: Bisacodyl (Bisacodyl 5 Mg Tab) 10 mg PO ONETIME ONE Stop: 03/13/21 20:01 Last Admin: 03/13/21 21:41 Dose: 10 mg Documented by: Lactated Ringer's (Ringers, Lactated) 1,000 mls @ 75 mls/hr IV ASDIRECTED [facility] Last Admin: 03/13/21 21:22 Dose: 75 mls/hr Documented by: Lactated Ringer's (Ringers, Lactated) Confirm Administered Dose 1,000 mls @ as directed .ROUTE .STK-MED ONE Stop: 03/13/21 11:49 Ondansetron HCl (Ondansetron 4 Mg Tab.Dis) 4 mg PO ONETIME ONE Stop: 03/13/21 03:45 Last Admin: 03/13/21 03:57 Dose: 4 mg Documented by: Pantoprazole Sodium (Pantoprazole 40 Mg Vial) 40 mg IVPUSH ONETIME ONE Stop: 03/13/21 10:46 Last Admin: 03/13/21 11:10 Dose: 40 mg Documented by: Pantoprazole Sodium (Pantoprazole 40 Mg Vial) 40 mg IV Q12H [facility] Last Admin: 03/13/21 22:42 Dose: 40 mg Documented by: Restasis Ptom 0 each EYEBOTH BID [facility] Last Admin: 03/13/21 21:36 Dose: Not Given Documented by: Polyethylene Glycol (Polyethylene Glycol 3350 Powder 238 Gm Bot) 238 gm PO ONETIME ONE Stop: 03/13/21 17:01 Last Admin: 03/13/21 17:50 Dose: 1 carton Documented by: Propofol (Propofol 200 Mg/20 Ml Sdv) Confirm Administered Dose 200 mg .ROUTE .STK-MED ONE Stop: 03/13/21 11:42 Propofol (Propofol 200 Mg/20 Ml Sdv) Confirm Administered Dose 200 mg .ROUTE .STK-MED ONE Stop: 03/14/21 07:21 - Exam Quality Assessment: No: Supplemental Oxygen General: Alert, Oriented, Cooperative, No Acute Distress Lungs: Normal Respiratory Effort GI/Abdominal Exam: Soft, No Distention Extremities: No Pedal Edema Skin: Warm, Dry Psy/Mental Status: Alert, Normal Affect - Patient Data Lab Results Last 24 hrs: Laboratory Results - last 24 hr 03/12/21 03/13/21 03/13/21 Range/Units 23:10 10:59 18:04 WBC (4.5-11.0) K/uL RBC (3.30-5.50) M/uL Hgb 8.2 L (12.0-15.0) g/dL Hct (36.0-48.0) % MCV (80-98) fL MCH (27-31) pg MCHC (32-36) % Plt Count (150-400) K/uL Sodium (140-148) mmol/L Potassium (3.6-5.2) mmol/L Chloride (100-108) mmol/L Carbon Dioxide (21-32) mmol/L Anion Gap (5.0-14.0) mmol/L BUN (7-18) mg/dL Creatinine (0.6-1.0) mg/dL Est Cr Clr Drug Dosing mL/min Estimated GFR (MDRD) (>60) Glucose (74-106) mg/dL Calcium (8.5-10.1) mg/dL SARS CoV-2 RNA Rapid ALISSA Negative Blood Type B POSITIVE Gel Antibody Screen Negative Crossmatch See Detail 03/14/21 03/14/21 Range/Units 05:45 05:45 WBC 7.3 (4.5-11.0) K/uL RBC 2.71 L (3.30-5.50) M/uL Hgb 7.5 L (12.0-15.0) g/dL Hct 24.4 L (36.0-48.0) % MCV 90 (80-98) fL MCH 28 (27-31) pg MCHC 31 L (32-36) % Plt Count 206 (150-400) K/uL Sodium 134 L (140-148) mmol/L Potassium 4.3 (3.6-5.2) mmol/L Chloride 101 (100-108) mmol/L Carbon Dioxide 29 (21-32) mmol/L Anion Gap 8.3 (5.0-14.0) mmol/L BUN 17 D (7-18) mg/dL Creatinine 0.4 L (0.6-1.0) mg/dL Est Cr Clr Drug Dosing 74.59 mL/min Estimated GFR (MDRD) > 60 (>60) Glucose 86 (74-106) mg/dL Calcium 7.6 L (8.5-10.1) mg/dL SARS CoV-2 RNA Rapid ALISSA Blood Type Gel Antibody Screen Crossmatch Result Diagrams: 03/14/21 05:45 03/14/21 05:45 Sepsis Event Note - Evaluation Sepsis Screening Result: No Definite Risk - Focused Exam Vital Signs: Vital Signs Temp Temp Pulse Pulse Resp BP BP 03/14/21 11:22 36.3 C 67 18 117/62 03/14/21 11:07 36.5 C 67 18 101/49 L 03/14/21 11:00 36.5 C 67 18 101/49 L 03/14/21 09:46 69 101/40 L 03/14/21 07:14 2.2 C L 69 18 101/40 L 03/14/21 02:48 36.6 C 65 16 128/43 L Pulse Ox 03/14/21 11:22 03/14/21 11:07 03/14/21 11:00 96 03/14/21 09:46 03/14/21 07:14 92 L 03/14/21 02:48 95 - Problem List & Annotations (1) GI bleed SNOMED Code(s): 77319240 Code(s): K92.2 - GASTROINTESTINAL HEMORRHAGE, UNSPECIFIED Status: Acute Current Visit: Yes Qualifiers: GI bleed type/associated pathology: unspecified gastrointestinal hemorrhage type Qualified Code(s): K92.2 - Gastrointestinal hemorrhage, unspecified (2) Anemia due to blood loss, acute SNOMED Code(s): 953017380 Code(s): D62 - ACUTE POSTHEMORRHAGIC ANEMIA Status: Acute Current Visit: Yes (3) Syncope SNOMED Code(s): 035366806 Code(s): R55 - SYNCOPE AND COLLAPSE Status: Acute Current Visit: Yes Qualifiers: Syncope type: unspecified Qualified Code(s): R55 - Syncope and collapse (4) Elevated troponin SNOMED Code(s): 081531337, 871146884, 939460041 Code(s): R77.8 - OTHER SPECIFIED ABNORMALITIES OF PLASMA PROTEINS Status: Acute Current Visit: Yes - Problem List Review Problem List Initiated/Reviewed/Updated: Yes - My Orders Last 24 Hours: My Active Orders 03/13/21 10:48 Resuscitation Status Routine 03/13/21 10:58 Acetaminophen [TylenoL] 650 mg PO Q4H PRN Albuterol [Proventil Neb Soln] 2.5 mg NEB Q4H PRN Docusate Sodium/Sennosides [Senna Plus] 1 tab PO BID PRN LORazepam [Ativan] 0.5 mg IVPUSH Q4H PRN Magnesium Hydroxide [Milk of Magnesia] 30 ml PO Q12H PRN Melatonin 9 mg PO BEDTIME PRN Ondansetron [Zofran ODT] 4 mg PO Q6H PRN Ondansetron [Zofran] 4 mg IV Q6H PRN 03/13/21 10:58 Patient Status [ADT] Routine Antiembolic Devices [RC] .Routine Intake and Output [RC] QSHIFT Notify Provider Consults [RC] ASDIRECTED Notify Provider Vital Signs [RC] ASDIRECTED Oxygen Therapy [RC] PRN RT Aerosol Therapy [RC] ASDIRECTED Up With Assistance [RC] ASDIRECTED Vital Signs [RC] Q4H Consult to Physician [CONS] Routine Sequential Compression Device [OM.PC] Routine VTE Pharmacological Contraindications [AST] Routine 03/13/21 11:00 timoloL maleate [Timoptic 0.25% Ophth Soln] 0 ml EYEBOTH DAILY 03/13/21 21:00 Hypromellose [GenTeal Mild to Moderate Ophth Soln] 0 ml EYEBOTH BEDTIME Latanoprost [Xalatan 0.005% Ophth Soln] 0 ml EYEBOTH BEDTIME Metoprolol Tartrate [Lopressor] 25 mg PO BID atorvaSTATin [Lipitor] 10 mg PO BEDTIME 03/14/21 07:30 Levothyroxine 50 mcg PO ACBREAKFAST 03/14/21 08:12 Transfuse Red Blood Cells [COMM] Routine 03/14/21 08:41 Hypromellose [GenTeal Mild to Moderate Ophth Soln] 0 ml EYEBOTH QID PRN 03/14/21 08:43 Convert IV to Saline Lock [OM.PC] Routine 03/14/21 09:00 Mometasone Furoate 100mcg [Asmanex HFA 100mcg] 0 gm INH DAILY amLODIPine [Norvasc] 2.5 mg PO DAILY 03/14/21 11:27 Discontinue Telemetry Monitoring [Cardiac Monitoring Discontinue] [RC] Click to Edit 03/14/21 16:00 HGB [HEMOGLOBIN] [HEME] Routine 03/15/21 05:00 CBC W/O DIFF,HEMOGRAM [HEME] Timed (1) 03/15/21 Breakfast Clear Liquid Diet [DIET] 03/15/21 11:00 bisacodyL [Dulcolax] 10 mg PO ONETIME ONE 03/15/21 13:00 polyethylene glycoL 3350 [MiraLAX] 238 gm PO ONETIME ONE - Plan Plan:: ASSESSMENT AND PLAN - Gastrointestinal hemorrhage, suspected-complicated by anemia due to blood loss and syncope. EGD unremarkable yesterday. Incomplete colon prep last night. Planning to give her a rest today and try to optimize blood and volume status. Planning repeat colon prep tomorrow and colonoscopy on . -Discontinue PPI -Transfuse 1 unit of packed red blood cells this morning -Colonoscopy with prep Saturday afternoon -Type and cross 2 units -Hemoglobin this evening and again in the morning Troponin elevation-mild, likely demand ischemia in the setting of severe anemia. Maintenance issues - -DVT prophylaxis-mechanical -GI prophylaxis-PPI -Nutrition-full liquids today and then clear liquids tomorrow Disposition -I anticipate discharge home after the hospital stay Harsh Noriega M.D.
[2021-03-14] MEDS: Latanoprost 0.005% Ophth Soln 2.5 ML Bottle EYEBOTH SCH (21:42)
[2021-03-14] MEDS: Hypromellose 0.3% Ophth Soln 15 ML Bottle EYEBOTH SCH (21:43)
[2021-03-14] MEDS: atorvaSTATin 10 MG Tab PO SCH (21:44)
[2021-03-15] MEDS: Levothyroxine 25 MCG Tab PO SCH (07:17)
[2021-03-15] MEDS: Mometasone Furoate HFA 100mcg/Puff 13 GM Inhaler INH SCH (08:07)
[2021-03-15] MEDS: Metoprolol Tartrate 25 MG Tab PO SCH ×2 (08:29→20:16)
[2021-03-15] MEDS: Timolol Maleate 0.25% Ophth Soln 5 ML Bottle EYEBOTH SCH (08:30)
[2021-03-15] MEDS ORDERED: Bisacodyl 5 MG Tab PO ONE (11:00)
[2021-03-15] MEDS ORDERED: Polyethylene Glycol 3350 Powder 238 GM Bot PO ONE (13:00)
--- NOTE | 2021-03-15 14:23 | PCM.PN ---
- General Info Date of Service: 03/15/21 Subjective Update: No acute events overnight. Patient tolerated full liquids yesterday. No abdominal pain or nausea. Hemoglobin stable last night and again this morning. No evidence for bleeding. She is in good spirits today. Starting prep this afternoon with plan for colonoscopy tomorrow. Functional Status: Reports: Pain Controlled, Tolerating Diet - Patient Data Vitals - Most Recent: Last Vital Signs Temp 36.3 C 03/15/21 12:30 Pulse 69 03/15/21 12:30 Resp 16 03/15/21 12:30 BP 113/49 L 03/15/21 12:30 Pulse Ox 95 03/15/21 12:30 Weight - Most Recent: 45.132 kg I&O - Last 24 Hours: Intake & Output 03/14/21 03/15/21 03/15/21 22:59 06:59 14:59 Intake Total 212 44 0998 Balance 502 94 7089 Lab Results Last 24 Hours: Laboratory Results - last 24 hr 03/14/21 03/15/21 Range/Units 16:14 04:15 WBC 8.0 (4.5-11.0) K/uL RBC 3.08 L (3.30-5.50) M/uL Hgb 9.3 L 8.9 L (12.0-15.0) g/dL Hct 27.6 L (36.0-48.0) % MCV 90 (80-98) fL MCH 29 (27-31) pg MCHC 32 (32-36) % Plt Count 226 (150-400) K/uL Med Orders - Current: Current Medications Acetaminophen (Acetaminophen 325 Mg Tab) 650 mg PO Q4H PRN PRN Reason: Pain (Mild 1-3)/fever Albuterol (Albuterol 0.083% 2.5 Mg/3 Ml Neb Soln) 2.5 mg NEB Q4H PRN PRN Reason: Shortness Of Breath/wheezing Amlodipine Besylate (Amlodipine 5 Mg Tab) 2.5 mg PO DAILY [facility] Last Admin: 03/14/21 09:46 Dose: 2.5 mg Documented by: Artificial Tears (Hypromellose 0.3% Ophth Soln 15 Ml Bottle) 0 ml EYEBOTH BEDTIME [facility] Last Admin: 03/14/21 21:43 Dose: 1 drop Documented by: Artificial Tears (Hypromellose 0.3% Ophth Soln 15 Ml Bottle) 0 ml EYEBOTH QID PRN PRN Reason: DRY EYES Atorvastatin Calcium (Atorvastatin 10 Mg Tab) 10 mg PO BEDTIME [facility] Last Admin: 03/14/21 21:44 Dose: 10 mg Documented by: Latanoprost (Latanoprost 0.005% Ophth Soln 2.5 Ml Bottle) 0 ml EYEBOTH BEDTIME [facility] Last Admin: 03/14/21 21:42 Dose: 1 drop Documented by: Levothyroxine Sodium (Levothyroxine 50 Mcg Tab) 50 mcg PO ACBREAKFAST [facility] Lorazepam (Lorazepam 2 Mg/Ml Sdv) 0.5 mg IVPUSH Q4H PRN PRN Reason: Nausea/Vomiting Magnesium Hydroxide (Magnesium Hydroxide 400 Mg/5 Ml Susp 30 Ml Cup) 30 ml PO Q12H PRN PRN Reason: Constipation Melatonin (Melatonin 3 Mg Tab) 9 mg PO BEDTIME PRN PRN Reason: sleep Metoprolol Tartrate (Metoprolol Tartrate 25 Mg Tab) 25 mg PO BID [facility] Last Admin: 03/15/21 08:29 Dose: 25 mg Documented by: Mometasone Furoate (Mometasone Furoate Hfa 100mcg/Puff 13 Gm Inhaler) 0 gm INH DAILY [facility] Last Admin: 03/15/21 08:07 Dose: 2 puff Documented by: Ondansetron HCl (Ondansetron 4 Mg/2 Ml Sdv) 4 mg IV Q6H PRN PRN Reason: Nausea/Vomiting Ondansetron HCl (Ondansetron 4 Mg Tab.Dis) 4 mg PO Q6H PRN PRN Reason: Nausea able to take PO Senna/Docusate Sodium (Docusate Sodium/Sennosides 50-8.6 Mg Tab) 1 tab PO BID PRN PRN Reason: Constipation Timolol Maleate (Timolol Maleate 0.25% Ophth Soln 5 Ml Bottle) 0 ml EYEBOTH DAILY [facility] Last Admin: 03/15/21 08:30 Dose: 1 drop Documented by: Discontinued Medications Bisacodyl (Bisacodyl 5 Mg Tab) 10 mg PO ONETIME ONE Stop: 03/13/21 14:01 Last Admin: 03/13/21 14:45 Dose: 10 mg Documented by: Bisacodyl (Bisacodyl 5 Mg Tab) 10 mg PO ONETIME ONE Stop: 03/13/21 20:01 Last Admin: 03/13/21 21:41 Dose: 10 mg Documented by: Bisacodyl (Bisacodyl 5 Mg Tab) 10 mg PO ONETIME ONE Stop: 03/15/21 11:01 Last Admin: 03/15/21 10:54 Dose: 10 mg Documented by: Lactated Ringer's (Ringers, Lactated) 1,000 mls @ 75 mls/hr IV ASDIRECTED [facility] Last Admin: 03/13/21 21:22 Dose: 75 mls/hr Documented by: Lactated Ringer's (Ringers, Lactated) Confirm Administered Dose 1,000 mls @ as directed .ROUTE .STK-MED ONE Stop: 03/13/21 11:49 Levothyroxine Sodium (Levothyroxine 25 Mcg Tab) 50 mcg PO ACBREAKFAST [facility] Last Admin: 03/15/21 07:17 Dose: 50 mcg Documented by: Ondansetron HCl (Ondansetron 4 Mg Tab.Dis) 4 mg PO ONETIME ONE Stop: 03/13/21 03:45 Last Admin: 03/13/21 03:57 Dose: 4 mg Documented by: Pantoprazole Sodium (Pantoprazole 40 Mg Vial) 40 mg IVPUSH ONETIME ONE Stop: 03/13/21 10:46 Last Admin: 03/13/21 11:10 Dose: 40 mg Documented by: Pantoprazole Sodium (Pantoprazole 40 Mg Vial) 40 mg IV Q12H [facility] Last Admin: 03/13/21 22:42 Dose: 40 mg Documented by: Restasis Ptom 0 each EYEBOTH BID [facility] Last Admin: 03/13/21 21:36 Dose: Not Given Documented by: Polyethylene Glycol (Polyethylene Glycol 3350 Powder 238 Gm Bot) 238 gm PO ONETIME ONE Stop: 03/13/21 17:01 Last Admin: 03/13/21 17:50 Dose: 1 carton Documented by: Polyethylene Glycol (Polyethylene Glycol 3350 Powder 238 Gm Bot) 238 gm PO ONETIME ONE Stop: 03/15/21 13:01 Last Admin: 03/15/21 12:39 Dose: 238 gm Documented by: Propofol (Propofol 200 Mg/20 Ml Sdv) Confirm Administered Dose 200 mg .ROUTE .STK-MED ONE Stop: 03/13/21 11:42 Propofol (Propofol 200 Mg/20 Ml Sdv) Confirm Administered Dose 200 mg .ROUTE .STK-MED ONE Stop: 03/14/21 07:21 - Exam Quality Assessment: No: Supplemental Oxygen General: Alert, Oriented, Cooperative, No Acute Distress Lungs: Normal Respiratory Effort GI/Abdominal Exam: Soft, No Distention Extremities: No Pedal Edema Psy/Mental Status: Alert, Normal Affect - Patient Data Lab Results Last 24 hrs: Laboratory Results - last 24 hr 03/14/21 03/15/21 Range/Units 16:14 04:15 WBC 8.0 (4.5-11.0) K/uL RBC 3.08 L (3.30-5.50) M/uL Hgb 9.3 L 8.9 L (12.0-15.0) g/dL Hct 27.6 L (36.0-48.0) % MCV 90 (80-98) fL MCH 29 (27-31) pg MCHC 32 (32-36) % Plt Count 226 (150-400) K/uL Result Diagrams: 03/15/21 04:15 03/14/21 05:45 Sepsis Event Note - Evaluation Sepsis Screening Result: No Definite Risk - Focused Exam Vital Signs: Vital Signs Temp Pulse Pulse Resp BP BP Pulse Ox 03/15/21 12:30 36.3 C 69 16 113/49 L 95 03/15/21 08:29 70 110/45 L 03/15/21 07:19 36.5 C 70 16 110/45 L 96 03/15/21 03:29 37.5 C 68 16 96/52 L 95 - Problem List & Annotations (1) GI bleed SNOMED Code(s): 40275595 Code(s): K92.2 - GASTROINTESTINAL HEMORRHAGE, UNSPECIFIED Status: Acute Current Visit: Yes Qualifiers: GI bleed type/associated pathology: unspecified gastrointestinal hemorrhage type Qualified Code(s): K92.2 - Gastrointestinal hemorrhage, unspecified (2) Anemia due to blood loss, acute SNOMED Code(s): 690260520 Code(s): D62 - ACUTE POSTHEMORRHAGIC ANEMIA Status: Acute Current Visit: Yes (3) Syncope SNOMED Code(s): 374787419 Code(s): R55 - SYNCOPE AND COLLAPSE Status: Acute Current Visit: Yes Qualifiers: Syncope type: unspecified Qualified Code(s): R55 - Syncope and collapse (4) Elevated troponin SNOMED Code(s): 202318840, 004188441, 290467683 Code(s): R77.8 - OTHER SPECIFIED ABNORMALITIES OF PLASMA PROTEINS Status: Acute Current Visit: Yes - Problem List Review Problem List Initiated/Reviewed/Updated: Yes - My Orders Last 24 Hours: My Active Orders 03/15/21 Breakfast Clear Liquid Diet [DIET] 03/15/21 Dinner NPO After Midnight [Nothing per Oral After Midnight Diet] [DIET] 03/16/21 05:00 BASIC METABOLIC PANEL,BMP [CHEM] Timed HGB [HEMOGLOBIN] [HEME] Timed 03/16/21 07:30 Levothyroxine [Synthroid] 50 mcg PO ACBREAKFAST - Plan Plan:: ASSESSMENT AND PLAN - Gastrointestinal hemorrhage, suspected-complicated by anemia due to blood loss and syncope. EGD unremarkable yesterday. Incomplete colon prep 2 days ago. Restarting prep today and planning for colonoscopy tomorrow. Hemoglobin stable. -Discontinue PPI -Colonoscopy with prep this afternoon -Type and cross 2 units -Hemoglobin in the morning Troponin elevation-mild, likely demand ischemia in the setting of severe anemia. Maintenance issues - -DVT prophylaxis-mechanical -GI prophylaxis-PPI -Nutrition-clear liquids today, nothing by mouth after midnight Disposition -I anticipate discharge home after the hospital stay Harsh Noriega M.D.
[2021-03-15] MEDS: Latanoprost 0.005% Ophth Soln 2.5 ML Bottle EYEBOTH SCH (20:16)
[2021-03-15] MEDS: Hypromellose 0.3% Ophth Soln 15 ML Bottle EYEBOTH SCH (20:16)
[2021-03-15] MEDS: atorvaSTATin 10 MG Tab PO SCH (20:16)
[2021-03-16] MEDS ORDERED: Propofol 200 MG/20 ML SDV ONE (07:23)
[2021-03-16] MEDS: Levothyroxine 50 MCG Tab PO SCH (07:48)
[2021-03-16] MEDS: Mometasone Furoate HFA 100mcg/Puff 13 GM Inhaler INH SCH (08:22)
[2021-03-16] MEDS ORDERED: Bisacodyl 5 MG Tab PO ONE ×2 (09:00→13:00)
[2021-03-16] MEDS: Metoprolol Tartrate 25 MG Tab PO SCH ×2 (09:17→20:47)
[2021-03-16] MEDS ORDERED: Iopamidol 612 MG/ML 100 ML Bottle IV PRN (10:18)
[2021-03-16] MEDS ORDERED: Sodium Chloride 0.9% 10 ML Syringe FLUSH PRN (10:18)
--- NOTE | 2021-03-16 10:52 | PCM.PN ---
- General Info Date of Service: 03/16/21 Subjective Update: No acute events overnight. No abdominal pain or nausea. She did complete her prep last night but unfortunately still has some brown stool though mostly liquid continuing to be expelled. Colonoscopy that was planned for today has been discontinued. We did get a CT scan which showed right inguinal hernia containing both small and large intestine loops with dilation of the loops proximal to the loop in the hernia. Hemoglobin stable with no evidence for bl eeding. Patient feels well overall. Functional Status: Reports: Pain Controlled, Tolerating Diet - Review of Systems Gastrointestinal: Denies: Abdominal Pain - Patient Data Vitals - Most Recent: Last Vital Signs Temp 36.1 C 03/16/21 06:52 Pulse 81 03/16/21 09:17 Resp 16 03/16/21 06:52 BP 120/52 L 03/16/21 09:17 Pulse Ox 90 L 03/16/21 06:52 Weight - Most Recent: 45.132 kg I&O - Last 24 Hours: Intake & Output 03/15/21 03/16/21 03/16/21 22:59 06:59 14:59 Intake Total 1920 250 960 Balance 1920 250 960 Lab Results Last 24 Hours: Laboratory Results - last 24 hr 03/16/21 03/16/21 Range/Units 05:03 05:03 Hgb 8.6 L (12.0-15.0) g/dL Sodium 134 L (140-148) mmol/L Potassium 3.8 (3.6-5.2) mmol/L Chloride 104 (100-108) mmol/L Carbon Dioxide 26 (21-32) mmol/L Anion Gap 7.8 (5.0-14.0) mmol/L BUN 4 L D (7-18) mg/dL Creatinine 0.4 L (0.6-1.0) mg/dL Est Cr Clr Drug Dosing 74.59 mL/min Estimated GFR (MDRD) > 60 (>60) Glucose 90 (74-106) mg/dL Calcium 7.7 L (8.5-10.1) mg/dL Med Orders - Current: Current Medications Acetaminophen (Acetaminophen 325 Mg Tab) 650 mg PO Q4H PRN PRN Reason: Pain (Mild 1-3)/fever Albuterol (Albuterol 0.083% 2.5 Mg/3 Ml Neb Soln) 2.5 mg NEB Q4H PRN PRN Reason: Shortness Of Breath/wheezing Artificial Tears (Hypromellose 0.3% Ophth Soln 15 Ml Bottle) 0 ml EYEBOTH BEDTIME [facility] Last Admin: 03/15/21 20:16 Dose: 1 drop Documented by: Artificial Tears (Hypromellose 0.3% Ophth Soln 15 Ml Bottle) 0 ml EYEBOTH QID PRN PRN Reason: DRY EYES Atorvastatin Calcium (Atorvastatin 10 Mg Tab) 10 mg PO BEDTIME [facility] Last Admin: 03/15/21 20:16 Dose: 10 mg Documented by: Bisacodyl (Bisacodyl 5 Mg Tab) 10 mg PO ONETIME ONE Stop: 03/16/21 13:01 Latanoprost (Latanoprost 0.005% Ophth Soln 2.5 Ml Bottle) 0 ml EYEBOTH BEDTIME [facility] Last Admin: 03/15/21 20:16 Dose: 1 drop Documented by: Levothyroxine Sodium (Levothyroxine 50 Mcg Tab) 50 mcg PO ACBREAKFAST [facility] Last Admin: 03/16/21 07:48 Dose: 50 mcg Documented by: Lorazepam (Lorazepam 2 Mg/Ml Sdv) 0.5 mg IVPUSH Q4H PRN PRN Reason: Nausea/Vomiting Magnesium Hydroxide (Magnesium Hydroxide 400 Mg/5 Ml Susp 30 Ml Cup) 30 ml PO Q12H PRN PRN Reason: Constipation Melatonin (Melatonin 3 Mg Tab) 9 mg PO BEDTIME PRN PRN Reason: sleep Metoprolol Tartrate (Metoprolol Tartrate 25 Mg Tab) 25 mg PO BID [facility] Last Admin: 03/16/21 09:17 Dose: 25 mg Documented by: Mometasone Furoate (Mometasone Furoate Hfa 100mcg/Puff 13 Gm Inhaler) 0 gm INH DAILY [facility] Last Admin: 03/16/21 08:22 Dose: 2 puff Documented by: Ondansetron HCl (Ondansetron 4 Mg/2 Ml Sdv) 4 mg IV Q6H PRN PRN Reason: Nausea/Vomiting Ondansetron HCl (Ondansetron 4 Mg Tab.Dis) 4 mg PO Q6H PRN PRN Reason: Nausea able to take PO Polyethylene Glycol (Polyethylene Glycol 3350 Powder 238 Gm Bot) 238 gm PO ONETIME ONE Stop: 03/16/21 11:01 Senna/Docusate Sodium (Docusate Sodium/Sennosides 50-8.6 Mg Tab) 1 tab PO BID PRN PRN Reason: Constipation Timolol Maleate (Timolol Maleate 0.25% Ophth Soln 5 Ml Bottle) 0 ml EYEBOTH DAILY [facility] Last Admin: 03/15/21 08:30 Dose: 1 drop Documented by: Discontinued Medications Amlodipine Besylate (Amlodipine 5 Mg Tab) 2.5 mg PO DAILY [facility] Last Admin: 03/14/21 09:46 Dose: 2.5 mg Documented by: Bisacodyl (Bisacodyl 5 Mg Tab) 10 mg PO ONETIME ONE Stop: 03/13/21 14:01 Last Admin: 03/13/21 14:45 Dose: 10 mg Documented by: Bisacodyl (Bisacodyl 5 Mg Tab) 10 mg PO ONETIME ONE Stop: 03/13/21 20:01 Last Admin: 03/13/21 21:41 Dose: 10 mg Documented by: Bisacodyl (Bisacodyl 5 Mg Tab) 10 mg PO ONETIME ONE Stop: 03/15/21 11:01 Last Admin: 03/15/21 10:54 Dose: 10 mg Documented by: Bisacodyl (Bisacodyl 5 Mg Tab) 10 mg PO ONETIME ONE Stop: 03/16/21 09:01 Last Admin: 03/16/21 09:17 Dose: 10 mg Documented by: Lactated Ringer's (Ringers, Lactated) 1,000 mls @ 75 mls/hr IV ASDIRECTED [facility] Last Admin: 03/13/21 21:22 Dose: 75 mls/hr Documented by: Lactated Ringer's (Ringers, Lactated) Confirm Administered Dose 1,000 mls @ as directed .ROUTE .STK-MED ONE Stop: 03/13/21 11:49 Sodium Chloride (Normal Saline) 70 mls @ 3 mls/sec IV ONETIME ONE Stop: 03/16/21 10:19 Last Admin: 03/16/21 10:50 Dose: 3 mls/sec Documented by: Iopamidol (Iopamidol 612 Mg/Ml 100 Ml Bottle) 68 ml IV . DIRECTED PRN PRN Reason: RADIOLOGY EXAM Stop: 03/16/21 10:19 Last Admin: 03/16/21 10:50 Dose: 68 ml Documented by: Levothyroxine Sodium (Levothyroxine 25 Mcg Tab) 50 mcg PO ACBREAKFAST [facility] Last Admin: 03/15/21 07:17 Dose: 50 mcg Documented by: Ondansetron HCl (Ondansetron 4 Mg Tab.Dis) 4 mg PO ONETIME ONE Stop: 03/13/21 03:45 Last Admin: 03/13/21 03:57 Dose: 4 mg Documented by: Pantoprazole Sodium (Pantoprazole 40 Mg Vial) 40 mg IVPUSH ONETIME ONE Stop: 03/13/21 10:46 Last Admin: 03/13/21 11:10 Dose: 40 mg Documented by: Pantoprazole Sodium (Pantoprazole 40 Mg Vial) 40 mg IV Q12H [facility] Last Admin: 03/13/21 22:42 Dose: 40 mg Documented by: Restasis Ptom 0 each EYEBOTH BID [facility] Last Admin: 03/13/21 21:36 Dose: Not Given Documented by: Polyethylene Glycol (Polyethylene Glycol 3350 Powder 238 Gm Bot) 238 gm PO ONET [place] ONE Stop: 03/13/21 17:01 Last Admin: 03/13/21 17:50 Dose: 1 carton Documented by: Polyethylene Glycol (Polyethylene Glycol 3350 Powder 238 Gm Bot) 238 gm PO ONETIME ONE Stop: 03/15/21 13:01 Last Admin: 03/15/21 12:39 Dose: 238 gm Documented by: Propofol (Propofol 200 Mg/20 Ml Sdv) Confirm Administered Dose 200 mg .ROUTE .STK-MED ONE Stop: 03/13/21 11:42 Propofol (Propofol 200 Mg/20 Ml Sdv) Confirm Administered Dose 200 mg .ROUTE .STK-MED ONE Stop: 03/14/21 07:21 Propofol (Propofol 200 Mg/20 Ml Sdv) Confirm Administered Dose 200 mg .ROUTE .STK-MED ONE Stop: 03/16/21 07:24 Sodium Chloride (Sodium Chloride 0.9% 10 Ml Syringe) 10 ml FLUSH ONETIME PRN PRN Reason: PER RADIOLOGY PROTOCOL Stop: 03/16/21 10:19 Last Admin: 03/16/21 10:50 Dose: 10 ml Documented by: - Exam Quality Assessment: No: Supplemental Oxygen General: Alert, Oriented, Cooperative, No Acute Distress Lungs: Normal Respiratory Effort GI/Abdominal Exam: Soft, No Distention, Hernia (Right inguinal hernia that is nonreducible) Extremities: No Pedal Edema Skin: Warm, Dry Psy/Mental Status: Alert, Normal Affect - Patient Data Lab Results Last 24 hrs: Laboratory Results - last 24 hr 03/16/21 03/16/21 Range/Units 05:03 05:03 Hgb 8.6 L (12.0-15.0) g/dL Sodium 134 L (140-148) mmol/L Potassium 3.8 (3.6-5.2) mmol/L Chloride 104 (100-108) mmol/L Carbon Dioxide 26 (21-32) mmol/L Anion Gap 7.8 (5.0-14.0) mmol/L BUN 4 L D (7-18) mg/dL Creatinine 0.4 L (0.6-1.0) mg/dL Est Cr Clr Drug Dosing 74.59 mL/min Estimated GFR (MDRD) > 60 (>60) Glucose 90 (74-106) mg/dL Calcium 7.7 L (8.5-10.1) mg/dL Result Diagrams: 03/16/21 05:03 03/16/21 05:03 Sepsis Event Note - Evaluation Sepsis Screening Result: No Definite Risk - Focused Exam Vital Signs: Vital Signs Temp Pulse Pulse Resp BP BP Pulse Ox 03/16/21 09:17 81 120/52 L 03/16/21 06:52 36.1 C 81 16 120/52 L 90 L 03/16/21 03:00 14 03/15/21 23:00 36.4 C 65 14 117/55 L 97 - Problem List & Annotations (1) GI bleed SNOMED Code(s): 18546017 Code(s): K92.2 - GASTROINTESTINAL HEMORRHAGE, UNSPECIFIED Status: Acute Current Visit: Yes Qualifiers: GI bleed type/associated pathology: unspecified gastrointestinal hemorrhage type Qualified Code(s): K92.2 - Gastrointestinal hemorrhage, unspecified (2) Anemia due to blood loss, acute SNOMED Code(s): 776294543 Code(s): D62 - ACUTE POSTHEMORRHAGIC ANEMIA Status: Acute Current Visit: Yes (3) Syncope SNOMED Code(s): 708198330 Code(s): R55 - SYNCOPE AND COLLAPSE Status: Acute Current Visit: Yes Qualifiers: Syncope type: unspecified Qualified Code(s): R55 - Syncope and collapse (4) Elevated troponin SNOMED Code(s): 270192631, 477770151, 297731567 Code(s): R77.8 - OTHER SPECIFIED ABNORMALITIES OF PLASMA PROTEINS Status: Acute Current Visit: Yes - Problem List Review Problem List Initiated/Reviewed/Updated: Yes - My Orders Last 24 Hours: My Active Orders 03/16/21 07:30 Levothyroxine [Synthroid] 50 mcg PO ACBREAKFAST 03/16/21 08:10 Consult to Physical Therapy [PT Evaluation and Treatment] [CONS] Routine 03/16/21 09:25 Abdomen Pelvis w Cont [CT] Routine 03/17/21 05:00 BASIC METABOLIC PANEL,BMP [CHEM] Timed CBC W/O DIFF,HEMOGRAM [HEME] Timed (1) - Plan Plan:: ASSESSMENT AND PLAN - Gastrointestinal hemorrhage, suspected-complicated by anemia due to blood loss and syncope. EGD unremarkable 03/13. Incomplete colon prep again overnight. CT did not show any obvious source of bleeding but did show hernia as discussed below. Hemoglobin stable. -Discontinue PPI -Defer colonoscopy for now -Type and cross 2 units -Hemoglobin in the morning Right inguinal hernia-contains loops of both large and small bowel. Suspect partial obstruction with dilated loops proximal to the hernia. -Consultation with Dr. Burdick, surgical intervention will be considered tomorrow morning Troponin elevation-mild, likely demand ischemia in the setting of severe anemia. Maintenance issues - -DVT prophylaxis-mechanical -GI prophylaxis-PPI -Nutrition-clear liquids today, nothing by mouth after midnight Disposition -I anticipate discharge home after the hospital stay Harsh Noriega M.D.
[2021-03-16] MEDS ORDERED: Polyethylene Glycol 3350 Powder 238 GM Bot PO ONE (11:00)
--- NOTE | 2021-03-16 11:51 | CRLCT ---
For Patients: As a result of the Century Cures Act, medical imaging exams and procedure reports are released immediately into your electronic medical record. You may view this report before your referring provider. If you have questions, please contact your health care provider. Indication: Abdominal pain, GI bleed possible obstruction Technique: Volumetric multidetector CT images of the abdomen and pelvis were obtained after the administration of intravenous contrast. 68 cc Isovue-300 low osmolar intravenous contrast Comparison: CT chest abdomen and pelvis dated July 03, 2012 Findings: There are pleural effusions with basilar atelectasis and parenchymal scar. The liver is normal in attenuation without intrahepatic biliary ductal dilatation. The portal vein is patent. The gallbladder is unremarkable without evidence of radiopaque calculus. There is no significant common biliary ductal dilatation or abrupt cut off. The spleen is normal in enhancement and size. There is marked thickening and mucosal enhancement of the gastric antrum. The pancreas is normal in enhancement without significant atrophy. The adrenal glands are unremarkable. Cystic changes of the kidneys are appreciated without evidence of distal obstructive uropathy. There is demonstration of herniated bowel within the right inguinal canal with [id number] dilated fluid filled loops of colon and small bowel which may represent a developing obstruction and/or enteritis changes. The distal colon is relatively decompressed. The appendix is not well visualized. There is no significant mesenteric, retroperitoneal, or pelvic sidewall lymph nodes. The aorta is non aneurysmal with scattered atherosclerotic calcification. The solid pelvic viscera are grossly unremarkable. There is no free fluid or free air. The anterior abdominal wall is intact without significant hernias. The lumbar vertebral body heights are grossly maintained with [id number] degenerative disc disease. There is minimal retrolisthesis of L2 on L3. Impression: Demonstration of a fat and bowel containing right inguinal hernia with dilated loops of colon and small bowel which may represent developing obstruction and/or enterocolitis changes. Marked thickening and mucosal hyperemia of the gastric antrum commensurate with gastritis/peptic ulcer disease changes. Bibasilar pleural effusions with adjacent compressive atelectasis. Please note that all CT scans at this facility use dose modulation, iterative reconstruction, and/or weight-based dosing when appropriate to reduce radiation dose to as low as reasonably achievable. Dictated by Efrem Kwok MD @ 03/16/2021 11:49:21 AM (Electronically Signed)
[2021-03-16] MEDS: Timolol Maleate 0.25% Ophth Soln 5 ML Bottle EYEBOTH SCH (12:05)
[2021-03-16] MEDS: Hypromellose 0.3% Ophth Soln 15 ML Bottle EYEBOTH SCH (20:46)
[2021-03-16] MEDS: atorvaSTATin 10 MG Tab PO SCH (20:47)
[2021-03-16] MEDS: Latanoprost 0.005% Ophth Soln 2.5 ML Bottle EYEBOTH SCH (20:47)
[2021-03-17] MEDS: Mometasone Furoate HFA 100mcg/Puff 13 GM Inhaler INH SCH (08:00)
[2021-03-17] MEDS: Metoprolol Tartrate 25 MG Tab PO SCH ×2 (08:01→22:08)
[2021-03-17] MEDS: Levothyroxine 50 MCG Tab PO SCH (08:01)
[2021-03-17] MEDS: Timolol Maleate 0.25% Ophth Soln 5 ML Bottle EYEBOTH SCH (08:02)
[2021-03-17] MEDS ORDERED: Meropenem 500 MG SDV ONE (08:11)
--- NOTE | 2021-03-17 09:11 | PN ---
DATE OF SERVICE: 03/17/2021 SUBJECTIVE: Ana is n.p.o. She will be going to Surgery. Case to follow today. She is n.p.o. but may receive her Lopressor and her amlodipine. She has no questions or concerns. OBJECTIVE: GENERAL: Ana is a pleasant 85-year-old female. She is alert and orientated. VITAL SIGNS: TPR is 97.7, 64, 18, blood pressure 131/41. HEENT: Negative. NECK: Supple. HEART: Regular rate and rhythm. LUNGS: Clear. ABDOMEN: There is a right inguinal hernia noted. EXTREMITIES: Without peripheral edema. ASSESSMENT: 1. Right inguinal hernia. 2. Status post esophagogastroduodenoscopy on 03/13/2021. 3. Gastrointestinal bleed. 4. Anemia due to blood loss. 5. Syncope. 6. Elevated troponin. PLAN: Schedule and have consent signed for open right inguinal hernia with mesh and possible laparotomy for bowel resection, general anesthesia, 03/17/2021. Case to follow. Cefoxitin 2 g IV on-call to OR. After preoperative evaluation, discussion of possible risks and possible complications, the patient wishes to proceed with surgery. D5 LR at 100 mL per hour and check magnesium, phosphorus, and BNP this a.m. We will evaluate p.r.n. Orders to be written postoperatively. Alix Hopkins PA-C /[id number]
[2021-03-17] MEDS ORDERED: cefOXitin 2 GM in Sodium Chloride 0.9% 50 ML IV ONE (10:00)
[2021-03-17] MEDS ORDERED: Succinylcholine 200 MG/10 ML MDV ONE (10:14)
[2021-03-17] MEDS ORDERED: Dexamethasone 4 MG/ML SDV ONE (10:14)
[2021-03-17] MEDS ORDERED: fentaNYL 250 MCG/5 ML SDV ONE (10:14)
[2021-03-17] MEDS ORDERED: Neostigmine Methylsulfate 1 MG/ML 5 ML Syringe ONE (10:14)
[2021-03-17] MEDS ORDERED: Propofol 200 MG/20 ML SDV ONE (10:14)
[2021-03-17] MEDS ORDERED: Rocuronium 50 MG/5 ML Vial ONE (10:14)
[2021-03-17] MEDS ORDERED: Ondansetron 4 MG/2 ML SDV ONE (10:14)
[2021-03-17] MEDS ORDERED: Glycopyrrolate 0.2 MG/ML 5 ML MDV ONE (10:14)
[2021-03-17] MEDS: Dextrose 5%-Lactated Ringers 1,000 ML IV SCH ×2 (11:25→18:01)
[2021-03-17] MEDS ORDERED: Ropivacaine 22 ML, dexAMETHasone 8 MG, EPINEPHrine 0.4 MG, Sodium Chloride 0.9% 55.6 ML NERVRT SCH ×4 (13:00)
[2021-03-17] MEDS ORDERED: Bupivacaine 0.5% 50 ML MDV ONE (13:54)
[2021-03-17] MEDS ORDERED: Lidocaine 1% with EPINEPHrine 1:100,000 50 ML MDV ONE (13:54)
[2021-03-17] MEDS ORDERED: Lidocaine 1% 2 ML ONE (14:28)
--- NOTE | 2021-03-17 15:09 | PCM.PN ---
- General Info Date of Service: 03/17/21 Subjective Update: No acute events overnight. No significant abdominal pain. No bowel movements. Vitals have been stable. Hemoglobin stable. Surgical intervention planned later in the day today to fix her inguinal hernia. - Patient Data Vitals - Most Recent: Last Vital Signs Temp 36.6 C 03/17/21 10:27 Pulse 58 L 03/17/21 10:27 Resp 18 03/17/21 10:27 BP 125/52 L 03/17/21 10:27 Pulse Ox 97 03/17/21 10:27 Weight - Most Recent: 45.132 kg I&O - Last 24 Hours: Intake & Output 03/17/21 03/17/21 03/17/21 06:59 14:59 22:59 Output Total 300 500 Balance -300 -500 Lab Results Last 24 Hours: Laboratory Results - last 24 hr 03/12/21 03/17/21 03/17/21 Range/Units 23:10 04:43 04:43 WBC 5.5 (4.5-11.0) K/uL RBC 3.00 L (3.30-5.50) M/uL Hgb 8.5 L (12.0-15.0) g/dL Hct 27.1 L (36.0-48.0) % MCV 90 (80-98) fL MCH 28 (27-31) pg MCHC 31 L (32-36) % Plt Count 228 (150-400) K/uL Sodium 134 L (140-148) mmol/L Potassium 3.6 (3.6-5.2) mmol/L Chloride 104 (100-108) mmol/L Carbon Dioxide 27 (21-32) mmol/L Anion Gap 6.6 (5.0-14.0) mmol/L BUN 5 L (7-18) mg/dL Creatinine 0.4 L (0.6-1.0) mg/dL Est Cr Clr Drug Dosing 74.59 mL/min Estimated GFR (MDRD) > 60 (>60) Glucose 83 (74-106) mg/dL Calcium 7.6 L (8.5-10.1) mg/dL Phosphorus (2.5-4.9) mg/dL Magnesium (1.8-2.4) mg/dL NT-Pro-B Natriuret Pep (5-450) pg/mL Blood Type Gel Antibody Screen Crossmatch See Detail 03/17/21 03/17/21 Range/Units 07:33 08:58 WBC (4.5-11.0) K/uL RBC (3.30-5.50) M/uL Hgb (12.0-15.0) g/dL Hct (36.0-48.0) % MCV (80-98) fL MCH (27-31) pg MCHC (32-36) % Plt Count (150-400) K/uL Sodium (140-148) mmol/L Potassium (3.6-5.2) mmol/L Chloride (100-108) mmol/L Carbon Dioxide (21-32) mmol/L Anion Gap (5.0-14.0) mmol/L BUN (7-18) mg/dL Creatinine (0.6-1.0) mg/dL Est Cr Clr Drug Dosing mL/min Estimated GFR (MDRD) (>60) Glucose (74-106) mg/dL Calcium (8.5-10.1) mg/dL Phosphorus 3.7 (2.5-4.9) mg/dL Magnesium 2.1 (1.8-2.4) mg/dL NT-Pro-B Natriuret Pep 1083 H (5-450) pg/mL Blood Type B POSITIVE Gel Antibody Screen Negative Crossmatch See Detail Med Orders - Current: Current Medications Acetaminophen (Acetaminophen 325 Mg Tab) 650 mg PO Q4H PRN PRN Reason: Pain (Mild 1-3)/fever Albuterol (Albuterol 0.083% 2.5 Mg/3 Ml Neb Soln) 2.5 mg NEB Q4H PRN PRN Reason: Shortness Of Breath/wheezing Artificial Tears (Hypromellose 0.3% Ophth Soln 15 Ml Bottle) 0 ml EYEBOTH BEDTIME [facility] Last Admin: 03/16/21 20:46 Dose: 1 drop Documented by: Artificial Tears (Hypromellose 0.3% Ophth Soln 15 Ml Bottle) 0 ml EYEBOTH QID PRN PRN Reason: DRY EYES Atorvastatin Calcium (Atorvastatin 10 Mg Tab) 10 mg PO BEDTIME [facility] Last Admin: 03/16/21 20:47 Dose: 10 mg Documented by: Ropivacaine 22 ml/Dexamethasone 8 mg/Epinephrine HCl 0.4 mg/ Sodium Chloride 55.6 ml 0 ml NERVRT ASDIRECTED [facility] Dextrose/Lactated Ringer's (Dextrose 5%-Lactated Ringers) 1,000 mls @ 100 mls/hr IV ASDIRECTED [facility] Last Admin: 03/17/21 11:25 Dose: 100 mls/hr Documented by: Latanoprost (Latanoprost 0.005% Ophth Soln 2.5 Ml Bottle) 0 ml EYEBOTH BEDTIME [facility] Last Admin: 03/16/21 20:47 Dose: 1 drop Documented by: Levothyroxine Sodium (Levothyroxine 50 Mcg Tab) 50 mcg PO ACBREAKFAST [facility] Last Admin: 03/17/21 08:01 Dose: 50 mcg Documented by: Lorazepam (Lorazepam 2 Mg/Ml Sdv) 0.5 mg IVPUSH Q4H PRN PRN Reason: Nausea/Vomiting Magnesium Hydroxide (Magnesium Hydroxide 400 Mg/5 Ml Susp 30 Ml Cup) 30 ml PO Q12H PRN PRN Reason: Constipation Melatonin (Melatonin 3 Mg Tab) 9 mg PO BEDTIME PRN PRN Reason: sleep Metoprolol Tartrate (Metoprolol Tartrate 25 Mg Tab) 25 mg PO BID [facility] Last Admin: 03/17/21 08:01 Dose: 25 mg Documented by: Mometasone Furoate (Mometasone Furoate Hfa 100mcg/Puff 13 Gm Inhaler) 0 gm INH DAILY [facility] Last Admin: 03/17/21 08:00 Dose: 2 puff Documented by: Ondansetron HCl (Ondansetron 4 Mg/2 Ml Sdv) 4 mg IV Q6H PRN PRN Reason: Nausea/Vomiting Ondansetron HCl (Ondansetron 4 Mg Tab.Dis) 4 mg PO Q6H PRN PRN Reason: Nausea able to take PO Potassium Chloride (Potassium Chloride 20 Meq Tab.Er) 40 meq PO ONETIME ONE Stop: 03/17/21 16:01 Senna/Docusate Sodium (Docusate Sodium/Sennosides 50-8.6 Mg Tab) 1 tab PO BID PRN PRN Reason: Constipation Timolol Maleate (Timolol Maleate 0.25% Ophth Soln 5 Ml Bottle) 0 ml EYEBOTH DAILY [facility] Last Admin: 03/17/21 08:02 Dose: 1 drop Documented by: Discontinued Medications Amlodipine Besylate (Amlodipine 5 Mg Tab) 2.5 mg PO DAILY [facility] Last Admin: 03/14/21 09:46 Dose: 2.5 mg Documented by: Bisacodyl (Bisacodyl 5 Mg Tab) 10 mg PO ONETIME ONE Stop: 03/13/21 14:01 Last Admin: 03/13/21 14:45 Dose: 10 mg Documented by: Bisacodyl (Bisacodyl 5 Mg Tab) 10 mg PO ONETIME ONE Stop: 03/13/21 20:01 Last Admin: 03/13/21 21:41 Dose: 10 mg Documented by: Bisacodyl (Bisacodyl 5 Mg Tab) 10 mg PO ONETIME ONE Stop: 03/15/21 11:01 Last Admin: 03/15/21 10:54 Dose: 10 mg Documented by: Bisacodyl (Bisacodyl 5 Mg Tab) 10 mg PO ONETIME ONE Stop: 03/16/21 09:01 Last Admin: 03/16/21 09:17 Dose: 10 mg Documented by: Bisacodyl (Bisacodyl 5 Mg Tab) 10 mg PO ONETIME ONE Stop: 03/16/21 13:01 Last Admin: 03/17/21 07:05 Dose: Not Given Documented by: Bupivacaine HCl (Bupivacaine 0.5% 50 Ml Mdv) Confirm Administered Dose 50 ml .ROUTE .STK-MED ONE Stop: 03/17/21 13:55 Dexamethasone (Dexamethasone 4 Mg/Ml Sdv) Confirm Administered Dose 4 mg .ROUTE .STK-MED ONE Stop: 03/17/21 10:15 Fentanyl (Fentanyl 250 Mcg/5 Ml Sdv) Confirm Administered Dose 250 mcg .ROUTE .STK-MED ONE Stop: 03/17/21 10:15 Glycopyrrolate (Glycopyrrolate 0.2 Mg/Ml 5 Ml Mdv) Confirm Administered Dose 1 mg .ROUTE .STK-MED ONE Stop: 03/17/21 10:15 Lactated Ringer's (Ringers, Lactated) 1,000 mls @ 75 mls/hr IV ASDIRECTED [facility] Last Admin: 03/13/21 21:22 Dose: 75 mls/hr Documented by: Lactated Ringer's (Ringers, Lactated) Confirm Administered Dose 1,000 mls @ as directed .ROUTE .STK-MED ONE Stop: 03/13/21 11:49 Sodium Chloride (Normal Saline) 70 mls @ 3 mls/sec IV ONETIME ONE Stop: 03/16/21 10:19 Last Admin: 03/16/21 10:50 Dose: 3 mls/sec Documented by: Cefoxitin Sodium 2 gm/ Sodium (Chloride) 50 mls @ 100 mls/hr IV ONCALL ONE Stop: 03/17/21 10:29 Last Admin: 03/17/21 14:32 Dose: 100 mls/hr Documented by: Linezolid (Zyvox) Confirm Administered Dose 300 mls @ as directed .ROUTE .STK- MED ONE Stop: 03/17/21 08:12 Lidocaine HCl (Xylocaine-Mpf 1%) Confirm Administered Dose 2 mls @ as directed .ROUTE .STK-MED ONE Stop: 03/17/21 14:29 Iopamidol (Iopamidol 612 Mg/Ml 100 Ml Bottle) 68 ml IV . DIRECTED PRN PRN Reason: RADIOLOGY EXAM Stop: 03/16/21 10:19 Last Admin: 03/16/21 10:50 Dose: 68 ml Documented by: Levothyroxine Sodium (Levothyroxine 25 Mcg Tab) 50 mcg PO ACBREAKFAST [facility] Last Admin: 03/15/21 07:17 Dose: 50 mcg Documented by: Lidocaine/Epinephrine (Lidocaine 1% With Epinephrine 1:100,000 50 Ml Mdv) Confirm Administered Dose 50 ml .ROUTE .STK-MED ONE Stop: 03/17/21 13:55 Meropenem (Meropenem 500 Mg Sdv) Confirm Administered Dose 500 mg .ROUTE .STK- MED ONE Stop: 03/17/21 08:12 Neostigmine Methylsulfate (Neostigmine Methylsulfate 1 Mg/Ml 5 Ml Syringe) Confirm Administered Dose 5 mg .ROUTE .STK-MED ONE Stop: 03/17/21 10:15 Ondansetron HCl (Ondansetron 4 Mg Tab.Dis) 4 mg PO ONETIME ONE Stop: 03/13/21 03:45 Last Admin: 03/13/21 03:57 Dose: 4 mg Documented by: Ondansetron HCl (Ondansetron 4 Mg/2 Ml Sdv) Confirm Administered Dose 4 mg .ROUTE .STK-MED ONE Stop: 03/17/21 10:15 Pantoprazole Sodium (Pantoprazole 40 Mg Vial) 40 mg IVPUSH ONETIME ONE Stop: 03/13/21 10:46 Last Admin: 03/13/21 11:10 Dose: 40 mg Documented by: Pantoprazole Sodium (Pantoprazole 40 Mg Vial) 40 mg IV Q12H [facility] Last Admin: 03/13/21 22:42 Dose: 40 mg Documented by: Restasis Ptom 0 each EYEBOTH BID [facility] Last Admin: 03/13/21 21:36 Dose: Not Given Documented by: Polyethylene Glycol (Polyethylene Glycol 3350 Powder 238 Gm Bot) 238 gm PO ONETIME ONE Stop: 03/13/21 17:01 Last Admin: 03/13/21 17:50 Dose: 1 carton Documented by: Polyethylene Glycol (Polyethylene Glycol 3350 Powder 238 Gm Bot) 238 gm PO ONETIME ONE Stop: 03/15/21 13:01 Last Admin: 03/15/21 12:39 Dose: 238 gm Documented by: Polyethylene Glycol (Polyethylene Glycol 3350 Powder 238 Gm Bot) 238 gm PO ONETIME ONE Stop: 03/16/21 11:01 Last Admin: 03/16/21 14:04 Dose: Not Given Documented by: Propofol (Propofol 200 Mg/20 Ml Sdv) Confirm Administered Dose 200 mg .ROUTE .STK-MED ONE Stop: 03/13/21 11:42 Propofol (Propofol 200 Mg/20 Ml Sdv) Confirm Administered Dose 200 mg .ROUTE .STK-MED ONE Stop: 03/14/21 07:21 Propofol (Propofol 200 Mg/20 Ml Sdv) Confirm Administered Dose 200 mg .ROUTE .STK-MED ONE Stop: 03/16/21 07:24 Propofol (Propofol 200 Mg/20 Ml Sdv) Confirm Administered Dose 200 mg .ROUTE .STK-MED ONE Stop: 03/17/21 10:15 Rocuronium Christoval (Rocuronium 50 Mg/5 Ml Vial) Confirm Administered Dose 50 mg .ROUTE .STK-MED ONE Stop: 03/17/21 10:15 Sodium Chloride (Sodium Chloride 0.9% 10 Ml Syringe) 10 ml FLUSH ONETIME PRN PRN Reason: PER RADIOLOGY PROTOCOL Stop: 03/16/21 10:19 Last Admin: 03/16/21 10:50 Dose: 10 ml Documented by: Succinylcholine Chloride (Succinylcholine 200 Mg/10 Ml Mdv) Confirm Administered Dose 200 mg .ROUTE .STIdeal Implant-MED ONE Stop: 03/17/21 10:15 - Exam Quality Assessment: No: Supplemental Oxygen General: Alert, Oriented, Cooperative, No Acute Distress Lungs: Normal Respiratory Effort GI/Abdominal Exam: Soft, No Distention Extremities: No Pedal Edema Skin: Warm, Dry Psy/Mental Status: Alert, Normal Affect - Patient Data Lab Results Last 24 hrs: Laboratory Results - last 24 hr 03/12/21 03/17/21 03/17/21 Range/Units 23:10 04:43 04:43 WBC 5.5 (4.5-11.0) K/uL RBC 3.00 L (3.30-5.50) M/uL Hgb 8.5 L (12.0-15.0) g/dL Hct 27.1 L (36.0-48.0) % MCV 90 (80-98) fL MCH 28 (27-31) pg MCHC 31 L (32-36) % Plt Count 228 (150-400) K/uL Sodium 134 L (140-148) mmol/L Potassium 3.6 (3.6-5.2) mmol/L Chloride 104 (100-108) mmol/L Carbon Dioxide 27 (21-32) mmol/L Anion Gap 6.6 (5.0-14.0) mmol/L BUN 5 L (7-18) mg/dL Creatinine 0.4 L (0.6-1.0) mg/dL Est Cr Clr Drug Dosing 74.59 mL/min Estimated GFR (MDRD) > 60 (>60) Glucose 83 (74-106) mg/dL Calcium 7.6 L (8.5-10.1) mg/dL Phosphorus (2.5-4.9) mg/dL Magnesium (1.8-2.4) mg/dL NT-Pro-B Natriuret Pep (5-450) pg/mL Blood Type Gel Antibody Screen Crossmatch See Detail 03/17/21 03/17/21 Range/Units 07:33 08:58 WBC (4.5-11.0) K/uL RBC (3.30-5.50) M/uL Hgb (12.0-15.0) g/dL Hct (36.0-48.0) % MCV (80-98) fL MCH (27-31) pg MCHC (32-36) % Plt Count (150-400) K/uL Sodium (140-148) mmol/L Potassium (3.6-5.2) mmol/L Chloride (100-108) mmol/L Carbon Dioxide (21-32) mmol/L Anion Gap (5.0-14.0) mmol/L BUN (7-18) mg/dL Creatinine (0.6-1.0) mg/dL Est Cr Clr Drug Dosing mL/min Estimated GFR (MDRD) (>60) Glucose (74-106) mg/dL Calcium (8.5-10.1) mg/dL Phosphorus 3.7 (2.5-4.9) mg/dL Magnesium 2.1 (1.8-2.4) mg/dL NT-Pro-B Natriuret Pep 1083 H (5-450) pg/mL Blood Type B POSITIVE Gel Antibody Screen Negative Crossmatch See Detail Result Diagrams: 03/17/21 04:43 03/17/21 04:43 Sepsis Event Note - Evaluation Sepsis Screening Result: No Definite Risk - Focused Exam Vital Signs: Vital Signs Temp Pulse Pulse Resp BP BP Pulse Ox 03/17/21 10:27 36.6 C 58 L 18 125/52 L 97 03/17/21 08:01 64 131/41 L 03/17/21 06:53 36.5 C 64 18 131/41 L 97 - Problem List & Annotations (1) GI bleed SNOMED Code(s): 34337576 Code(s): K92.2 - GASTROINTESTINAL HEMORRHAGE, UNSPECIFIED Status: Acute Current Visit: Yes Qualifiers: GI bleed type/associated pathology: unspecified gastrointestinal hemorrhage type Qualified Code(s): K92.2 - Gastrointestinal hemorrhage, unspecified (2) Anemia due to blood loss, acute SNOMED Code(s): 002154352 Code(s): D62 - ACUTE POSTHEMORRHAGIC ANEMIA Status: Acute Current Visit: Yes (3) Syncope SNOMED Code(s): 541469974 Code(s): R55 - SYNCOPE AND COLLAPSE Status: Acute Current Visit: Yes Qualifiers: Syncope type: unspecified Qualified Code(s): R55 - Syncope and collapse (4) Elevated troponin SNOMED Code(s): 770013390, 243027365, 549198552 Code(s): R77.8 - OTHER SPECIFIED ABNORMALITIES OF PLASMA PROTEINS Status: Acute Current Visit: Yes - Problem List Review Problem List Initiated/Reviewed/Updated: Yes - My Orders Last 24 Hours: My Active Orders 03/16/21 15:12 Consult to Physician [CONS] Routine 03/16/21 Dinner NPO After Midnight [Nothing per Oral After Midnight Diet] [DIET] 03/17/21 16:00 Potassium Chloride [Klor-Con M20] 40 meq PO ONETIME ONE 03/18/21 05:00 BASIC METABOLIC PANEL,BMP [CHEM] Timed HGB [HEMOGLOBIN] [HEME] Timed - Plan Plan:: ASSESSMENT AND PLAN - Gastrointestinal hemorrhage, suspected-complicated by anemia due to blood loss and syncope. EGD unremarkable 03/13. Incomplete colon prep on [address] did not show any obvious source of bleeding but did show hernia as discussed below. Hemoglobin stable. -Discontinue PPI -Defer colonoscopy for now -Type and cross 2 units -Hemoglobin in the morning Right inguinal hernia-contains loops of both large and small bowel. Suspect partial obstruction with dilated loops proximal to the hernia. -Consultation with Dr. Burdick, surgical intervention planned this afternoon Troponin elevation-mild, likely demand ischemia in the setting of severe anemia. Maintenance issues - -DVT prophylaxis-mechanical -GI prophylaxis-PPI -Nutrition-nothing by mouth until after surgery Disposition -I anticipate discharge home after the hospital stay Harsh Noriega M.D.
[2021-03-17] MEDS ORDERED: Potassium Chloride 20 MEQ Tab.ER PO ONE (16:00)
[2021-03-17] MEDS ORDERED: HYDROmorphone 0.5 MG/0.5 ML Syringe IVPUSH PRN (17:22)
[2021-03-17] MEDS ORDERED: Cyclobenzaprine 10 MG Tab PO PRN (17:23)
[2021-03-17] MEDS ORDERED: hydrOXYzine HCL 100 MG/2 ML SDV IM PRN (17:23)
[2021-03-17] MEDS: Acetaminophen 325 MG Tab PO SCH (18:01)
[2021-03-17] MEDS ORDERED: Pantoprazole 40 MG Vial IV SCH (21:00)
[2021-03-17] MEDS: Hypromellose 0.3% Ophth Soln 15 ML Bottle EYEBOTH SCH (22:07)
[2021-03-17] MEDS: atorvaSTATin 10 MG Tab PO SCH (22:07)
[2021-03-17] MEDS: Latanoprost 0.005% Ophth Soln 2.5 ML Bottle EYEBOTH SCH (22:09)
[2021-03-18] MEDS: Acetaminophen 325 MG Tab PO SCH ×5 (02:09→23:57)
[2021-03-18] MEDS: Dextrose 5%-Lactated Ringers 1,000 ML IV SCH (04:33)
[2021-03-18] MEDS ORDERED: Dextrose 5%-Lactated Ringers 1,000 ML IV SCH (08:00)
[2021-03-18] MEDS: Mometasone Furoate HFA 100mcg/Puff 13 GM Inhaler INH SCH (08:04)
[2021-03-18] MEDS: Docusate Sodium 100 MG Cap PO SCH ×2 (08:20→21:10)
[2021-03-18] MEDS: Levothyroxine 50 MCG Tab PO SCH (08:20)
[2021-03-18] MEDS: Metoprolol Tartrate 25 MG Tab PO SCH ×2 (08:20→21:11)
[2021-03-18] MEDS: Hydrochlorothiazide 25 MG Tab PO SCH (08:20)
[2021-03-18] MEDS: Timolol Maleate 0.25% Ophth Soln 5 ML Bottle EYEBOTH SCH (08:21)
[2021-03-18] MEDS: Magnesium Sulfate/Water 2 GM in Premix Bag 1 BAG IV SCH ×3 (09:34→21:15)
--- NOTE | 2021-03-18 10:38 | PCM.PN ---
- General Info Date of Service: 03/18/21 Subjective Update: No acute events overnight. Pain well controlled this morning after her abdominal surgery yesterday. No nausea. No fevers. No shortness of breath. Tolerating clear liquids. Hemoglobin level improved significantly after blood transfusion yesterday. Delayed primary closure planned for tomorrow. Functional Status: Reports: Pain Controlled, Tolerating Diet - Review of Systems General: Denies: Fever - Patient Data Vitals - Most Recent: Last Vital Signs Temp 36.5 C 03/18/21 10:31 Pulse 69 03/18/21 10:31 Resp 18 03/18/21 10:31 BP 119/50 L 03/18/21 10:31 Pulse Ox 94 L 03/18/21 10:31 Weight - Most Recent: 45.132 kg I&O - Last 24 Hours: Intake & Output 03/17/21 03/18/21 03/18/21 22:59 06:59 14:59 Intake Total 670 1462 480 Output Total 1025 700 150 Balance -355 762 330 Lab Results Last 24 Hours: Laboratory Results - last 24 hr 03/17/21 03/18/21 03/18/21 Range/Units 08:58 04:25 04:25 WBC 24.1 H (4.5-11.0) K/uL RBC 3.82 (3.30-5.50) M/uL Hgb 11.0 L D (12.0-15.0) g/dL Hct 33.3 L (36.0-48.0) % MCV 87 (80-98) fL MCH 29 (27-31) pg MCHC 33 (32-36) % Plt Count 211 (150-400) K/uL Neut % (Auto) 93.7 H (36-66) % Lymph % (Auto) 2.9 L (24-44) % Millard % (Auto) 3.4 (2-6) % Eos % (Auto) 0.0 L (2-4) % Baso % (Auto) 0.0 (0-1) % Sodium 133 L (140-148) mmol/L Potassium 4.1 (3.6-5.2) mmol/L Chloride 103 (100-108) mmol/L Carbon Dioxide 23 (21-32) mmol/L Anion Gap 11.1 (5.0-14.0) mmol/L BUN 6 L (7-18) mg/dL Creatinine 0.6 (0.6-1.0) mg/dL Est Cr Clr Drug Dosing 49.73 mL/min Estimated GFR (MDRD) > 60 (>60) Glucose 215 H (74-106) mg/dL Calcium 7.5 L (8.5-10.1) mg/dL Phosphorus 2.7 (2.5-4.9) mg/dL Magnesium 1.7 L (1.8-2.4) mg/dL Total Bilirubin 0.7 D (0.2-1.0) mg/dL AST 26 (15-37) U/L ALT 38 (12-78) U/L Alkaline Phosphatase 69 (46-116) U/L NT-Pro-B Natriuret Pep 1635 H (5-450) pg/mL Total Protein 4.8 L (6.4-8.2) g/dL Albumin 2.3 L (3.4-5.0) g/dL Globulin 2.5 (2.3-3.5) g/dL Albumin/Globulin Ratio 0.9 L (1.2-2.2) Blood Type B POSITIVE Gel Antibody Screen Negative Crossmatch See Detail Med Orders - Current: Current Medications Acetaminophen (Acetaminophen 325 Mg Tab) 650 mg PO Q4H PRN PRN Reason: Pain (Mild 1-3)/fever Acetaminophen (Acetaminophen 325 Mg Tab) 650 mg PO Q6H [facility] Last Admin: 03/18/21 06:46 Dose: 650 mg Documented by: Albuterol (Albuterol 0.083% 2.5 Mg/3 Ml Neb Soln) 2.5 mg NEB Q4H PRN PRN Reason: Shortness Of Breath/wheezing Alvimopan (Alvimopan 12 Mg Capsule) 12 mg PO BID [facility] Stop: 03/24/21 21:01 Last Admin: 03/18/21 08:20 Dose: 12 mg Documented by: Artificial Tears (Hypromellose 0.3% Ophth Soln 15 Ml Bottle) 0 ml EYEBOTH BEDTIME [facility] Last Admin: 03/17/21 22:07 Dose: 1 drop Documented by: Artificial Tears (Hypromellose 0.3% Ophth Soln 15 Ml Bottle) 0 ml EYEBOTH QID PRN PRN Reason: DRY EYES Atorvastatin Calcium (Atorvastatin 10 Mg Tab) 10 mg PO BEDTIME [facility] Last Admin: 03/17/21 22:07 Dose: 10 mg Documented by: Ropivacaine 22 ml/Dexamethasone 8 mg/Epinephrine HCl 0.4 mg/ Sodium Chloride 55.6 ml 0 ml NERVRT ASDIRECTED [facility] Docusate Sodium (Docusate Sodium 100 Mg Cap) 100 mg PO BID [facility] Last Admin: 03/18/21 08:20 Dose: 100 mg Documented by: Hydrochlorothiazide (Hydrochlorothiazide 25 Mg Tab) 25 mg PO DAILY [facility] Last Admin: 03/18/21 08:20 Dose: 25 mg Documented by: Hydromorphone HCl (Hydromorphone 0.5 Mg/0.5 Ml Syringe) 0.5 mg IVPUSH Q2H PRN PRN Reason: Pain Last Admin: 03/18/21 02:15 Dose: 0.5 mg Documented by: Hydroxyzine HCl (Hydroxyzine Hcl 100 Mg/2 Ml Sdv) 50 mg IM Q4H PRN PRN Reason: Pain Last Admin: 03/17/21 18:02 Dose: 50 mg Documented by: Cefoxitin Sodium 1 gm/ Sodium (Chloride) 50 mls @ 100 mls/hr IV Q6H [facility] Stop: 03/18/21 14:59 Last Admin: 03/18/21 08:21 Dose: 100 mls/hr Documented by: Dextrose/Lactated Ringer's (Dextrose 5%-Lactated Ringers) 1,000 mls @ 80 mls/hr IV ASDIRECTED [facility] Magnesium Sulfate 2 gm/ Premix 50 mls @ 25 mls/hr IV Q6HR [facility] Stop: 03/20/21 05:59 Last Admin: 03/18/21 09:34 Dose: 25 mls/hr Documented by: Latanoprost (Latanoprost 0.005% Ophth Soln 2.5 Ml Bottle) 0 ml EYEBOTH BEDTIME [facility] Last Admin: 03/17/21 22:09 Dose: 1 drop Documented by: Levothyroxine Sodium (Levothyroxine 50 Mcg Tab) 50 mcg PO ACBREAKFAST [facility] Last Admin: 03/18/21 08:20 Dose: 50 mcg Documented by: Lorazepam (Lorazepam 2 Mg/Ml Sdv) 0.5 mg IVPUSH Q4H PRN PRN Reason: Nausea/Vomiting Magnesium Hydroxide (Magnesium Hydroxide 400 Mg/5 Ml Susp 30 Ml Cup) 30 ml PO Q12H PRN PRN Reason: Constipation Melatonin (Melatonin 3 Mg Tab) 9 mg PO BEDTIME PRN PRN Reason: sleep Metoprolol Tartrate (Metoprolol Tartrate 25 Mg Tab) 25 mg PO BID [facility] Last Admin: 03/18/21 08:20 Dose: 25 mg Documented by: Mometasone Furoate (Mometasone Furoate Hfa 100mcg/Puff 13 Gm Inhaler) 0 gm INH DAILY [facility] Last Admin: 03/18/21 08:04 Dose: 2 puff Documented by: Ondansetron HCl (Ondansetron 4 Mg/2 Ml Sdv) 4 mg IV Q6H PRN PRN Reason: Nausea/Vomiting Ondansetron HCl (Ondansetron 4 Mg Tab.Dis) 4 mg PO Q6H PRN PRN Reason: Nausea able to take PO Senna/Docusate Sodium (Docusate Sodium/Sennosides 50-8.6 Mg Tab) 1 tab PO BID PRN PRN Reason: Constipation Timolol Maleate (Timolol Maleate 0.25% Ophth Soln 5 Ml Bottle) 0 ml EYEBOTH DAILY [facility] Last Admin: 03/18/21 08:21 Dose: 1 drop Documented by: Discontinued Medications Amlodipine Besylate (Amlodipine 5 Mg Tab) 2.5 mg PO DAILY [facility] Last Admin: 03/14/21 09:46 Dose: 2.5 mg Documented by: Bisacodyl (Bisacodyl 5 Mg Tab) 10 mg PO ONETIME ONE Stop: 03/13/21 14:01 Last Admin: 03/13/21 14:45 Dose: 10 mg Documented by: Bisacodyl (Bisacodyl 5 Mg Tab) 10 mg PO ONETIME ONE Stop: 03/13/21 20:01 Last Admin: 03/13/21 21:41 Dose: 10 mg Documented by: Bisacodyl (Bisacodyl 5 Mg Tab) 10 mg PO ONETIME ONE Stop: 03/15/21 11:01 Last Admin: 03/15/21 10:54 Dose: 10 mg Documented by: Bisacodyl (Bisacodyl 5 Mg Tab) 10 mg PO ONETIME ONE Stop: 03/16/21 09:01 Last Admin: 03/16/21 09:17 Dose: 10 mg Documented by: Bisacodyl (Bisacodyl 5 Mg Tab) 10 mg PO ONETIME ONE Stop: 03/16/21 13:01 Last Admin: 03/17/21 07:05 Dose: Not Given Documented by: Bupivacaine HCl (Bupivacaine 0.5% 50 Ml Mdv) Confirm Administered Dose 50 ml .ROUTE .STK-MED ONE Stop: 03/17/21 13:55 Ropivacaine 22 ml/Dexamethasone 8 mg/Epinephrine HCl 0.4 mg/ Sodium Chloride 55.6 ml 0 ml NERVRT ASDIRECTED [facility] Last Admin: 03/17/21 15:11 Dose: 80 syringe Documented by: Cyclobenzaprine HCl (Cyclobenzaprine 10 Mg Tab) 10 mg PO Q8H PRN PRN Reason: Muscle Spasm - Painful Dexamethasone (Dexamethasone 4 Mg/Ml Sdv) Confirm Administered Dose 4 mg .ROUTE .STK-MED ONE Stop: 03/17/21 10:15 Fentanyl (Fentanyl 250 Mcg/5 Ml Sdv) Confirm Administered Dose 250 mcg .ROUTE .STK-MED ONE Stop: 03/17/21 10:15 Glycopyrrolate (Glycopyrrolate 0.2 Mg/Ml 5 Ml Mdv) Confirm Administered Dose 1 mg .ROUTE .STK-MED ONE Stop: 03/17/21 10:15 Lactated Ringer's (Ringers, Lactated) 1,000 mls [facility] Admin: 03/13/21 21:22 Dose: 75 mls/hr Documented by: Lactated Ringer's (Ringers, Lactated) Confirm Administered Dose 1,000 mls @ as directed .ROUTE .STK-MED ONE Stop: 03/13/21 11:49 Sodium Chloride (Normal Saline) 70 mls @ 3 mls/sec IV ONETIME ONE Stop: 03/16/21 10:19 Last Admin: 03/16/21 10:50 Dose: 3 mls/sec Documented by: Cefoxitin Sodium 2 gm/ Sodium (Chloride) 50 mls @ 100 mls/hr IV ONCALL ONE Stop: 03/17/21 10:29 Last Admin: 03/17/21 14:32 Dose: 100 mls/hr Documented by: Linezolid (Zyvox) Confirm Administered Dose 300 mls @ as directed .ROUTE .STK- MED ONE Stop: 03/17/21 08:12 Dextrose/Lactated Ringer's (Dextrose 5%-Lactated Ringers) 1,000 mls @ 100 mls/hr IV ASDIRECTED [facility] Last Admin: 03/18/21 04:33 Dose: 100 mls/hr Documented by: Lidocaine HCl (Xylocaine-Mpf 1%) Confirm Administered Dose 2 mls @ as directed .ROUTE .STK-MED ONE Stop: 03/17/21 14:29 Iopamidol (Iopamidol 612 Mg/Ml 100 Ml Bottle) 68 ml IV . DIRECTED PRN PRN Reason: RADIOLOGY EXAM Stop: 03/16/21 10:19 Last Admin: 03/16/21 10:50 Dose: 68 ml Documented by: Levothyroxine Sodium (Levothyroxine 25 Mcg Tab) 50 mcg PO ACBREAKFAST [facility] Last Admin: 03/15/21 07:17 Dose: 50 mcg Documented by: Lidocaine/Epinephrine (Lidocaine 1% With Epinephrine 1:100,000 50 Ml Mdv) Confirm Administered Dose 50 ml .ROUTE .STK-MED ONE Stop: 03/17/21 13:55 Meropenem (Meropenem 500 Mg Sdv) Confirm Administered Dose 500 mg .ROUTE .STK- MED ONE Stop: 03/17/21 08:12 Neostigmine Methylsulfate (Neostigmine Methylsulfate 1 Mg/Ml 5 Ml Syringe) Confirm Administered Dose 5 mg .ROUTE .STK-MED ONE Stop: 03/17/21 10:15 Ondansetron HCl (Ondansetron 4 Mg Tab.Dis) 4 mg PO ONETIME ONE Stop: 03/13/21 03:45 Last Admin: 03/13/21 03:57 Dose: 4 mg Documented by: Ondansetron HCl (Ondansetron 4 Mg/2 Ml Sdv) Confirm Administered Dose 4 mg .ROUTE .STK-MED ONE Stop: 03/17/21 10:15 Pantoprazole Sodium (Pantoprazole 40 Mg Vial) 40 mg IVPUSH ONETIME ONE Stop: 03/13/21 10:46 Last Admin: 03/13/21 11:10 Dose: 40 mg Documented by: Pantoprazole Sodium (Pantoprazole 40 Mg Vial) 40 mg IV Q12H [facility] Last Admin: 03/13/21 22:42 Dose: 40 mg Documented by: Pantoprazole Sodium (Pantoprazole 40 Mg Vial) 40 mg IV Q24H [facility] Last Admin: 03/17/21 22:08 Dose: 40 mg Documented by: Restasis Ptom 0 each EYEBOTH BID [facility] Last Admin: 03/13/21 21:36 Dose: Not Given Documented by: Polyethylene Glycol (Polyethylene Glycol 3350 Powder 238 Gm Bot) 238 gm PO ONETIME ONE Stop: 03/13/21 17:01 Last Admin: 03/13/21 17:50 Dose: 1 carton Documented by: Polyethylene Glycol (Polyethylene Glycol 3350 Powder 238 Gm Bot) 238 gm PO ONETIME ONE Stop: 03/15/21 13:01 Last Admin: 03/15/21 12:39 Dose: 238 gm Documented by: Polyethylene Glycol (Polyethylene Glycol 3350 Powder 238 Gm Bot) 238 gm PO ONETIME ONE Stop: 03/16/21 11:01 Last Admin: 03/16/21 14:04 Dose: Not Given Documented by: Potassium Chloride (Potassium Chloride 20 Meq Tab.Er) 40 meq PO ONETIME ONE Stop: 03/17/21 16:01 Last Admin: 03/17/21 18:01 Dose: 40 meq Documented by: Propofol (Propofol 200 Mg/20 Ml Sdv) Confirm Administered Dose 200 mg .ROUTE .STK-MED ONE Stop: 03/13/21 11:42 Propofol (Propofol 200 Mg/20 Ml Sdv) Confirm Administered Dose 200 mg .ROUTE .STK-MED ONE Stop: 03/14/21 07:21 Propofol (Propofol 200 Mg/20 Ml Sdv) Confirm Administered Dose 200 mg .ROUTE .STK-MED ONE Stop: 03/16/21 07:24 Propofol (Propofol 200 Mg/20 Ml Sdv) Confirm Administered Dose 200 mg .ROUTE .STK-MED ONE Stop: 03/17/21 10:15 Rocuronium [place] (Rocuronium 50 Mg/5 Ml Vial) Confirm Administered Dose 50 mg .ROUTE .STK-MED ONE Stop: 03/17/21 10:15 Sodium Chloride (Sodium Chloride 0.9% 10 Ml Syringe) 10 ml FLUSH ONETIME PRN PRN Reason: PER RADIOLOGY PROTOCOL Stop: 03/16/21 10:19 Last Admin: 03/16/21 10:50 Dose: 10 ml Documented by: Succinylcholine Chloride (Succinylcholine 200 Mg/10 Ml Mdv) Confirm Administered Dose 200 mg .ROUTE .STK-SmartRx ONE Stop: 03/17/21 10:15 - Exam Quality Assessment: No: Supplemental Oxygen Urinary Catheter Total Time: 0Days 3Hours General: Alert, Oriented, Cooperative, No Acute Distress Lungs: Normal Respiratory Effort GI/Abdominal Exam: Soft, No Distention Extremities: No Pedal Edema Psy/Mental Status: Alert, Normal Affect - Patient Data Lab Results Last 24 hrs: Laboratory Results - last 24 hr 03/17/21 03/18/21 03/18/21 Range/Units 08:58 04:25 04:25 WBC 24.1 H (4.5-11.0) K/uL RBC 3.82 (3.30-5.50) M/uL Hgb 11.0 L D (12.0-15.0) g/dL Hct 33.3 L (36.0-48.0) % MCV 87 (80-98) fL MCH 29 (27-31) pg MCHC 33 (32-36) % Plt Count 211 (150-400) K/uL Neut % (Auto) 93.7 H (36-66) % Lymph % (Auto) 2.9 L (24-44) % Millard % (Auto) 3.4 (2-6) % Eos % (Auto) 0.0 L (2-4) % Baso % (Auto) 0.0 (0-1) % Sodium 133 L (140-148) mmol/L Potassium 4.1 (3.6-5.2) mmol/L Chloride 103 (100-108) mmol/L Carbon Dioxide 23 (21-32) mmol/L Anion Gap 11.1 (5.0-14.0) mmol/L BUN 6 L (7-18) mg/dL Creatinine 0.6 (0.6-1.0) mg/dL Est Cr Clr Drug Dosing 49.73 mL/min Estimated GFR (MDRD) > 60 (>60) Glucose 215 H (74-106) mg/dL Calcium 7.5 L (8.5-10.1) mg/dL Phosphorus 2.7 (2.5-4.9) mg/dL Magnesium 1.7 L (1.8-2.4) mg/dL Total Bilirubin 0.7 D (0.2-1.0) mg/dL AST 26 (15-37) U/L ALT 38 (12-78) U/L Alkaline Phosphatase 69 (46-116) U/L NT-Pro-B Natriuret Pep 1635 H (5-450) pg/mL Total Protein 4.8 L (6.4-8.2) g/dL Albumin 2.3 L (3.4-5.0) g/dL Globulin 2.5 (2.3-3.5) g/dL Albumin/Globulin Ratio 0.9 L (1.2-2.2) Blood Type B POSITIVE Gel Antibody Screen Negative Crossmatch See Detail Result Diagrams: 03/18/21 04:25 03/18/21 04:25 Sepsis Event Note - Evaluation Sepsis Screening Result: No Definite Risk - Focused Exam Vital Signs: Vital Signs Temp Pulse Pulse Resp BP BP Pulse Ox 03/18/21 10:31 36.5 C 69 18 119/50 L 94 L 03/18/21 08:20 62 104/55 L 03/18/21 07:38 35.7 C L 62 18 104/55 L 96 03/18/21 02:20 37.1 C 78 16 141/65 H 96 - Problem List & Annotations (1) GI bleed SNOMED Code(s): 01855402 Code(s): K92.2 - GASTROINTESTINAL HEMORRHAGE, UNSPECIFIED Status: Acute Current Visit: Yes Qualifiers: GI bleed type/associated pathology: unspecified gastrointestinal hemorrhage type Qualified Code(s): K92.2 - Gastrointestinal hemorrhage, unspecified (2) Anemia due to blood loss, acute SNOMED Code(s): 561231897 Code(s): D62 - ACUTE POSTHEMORRHAGIC ANEMIA Status: Acute Current Visit: Yes (3) Syncope SNOMED Code(s): 441064170 Code(s): R55 - SYNCOPE AND COLLAPSE Status: Acute Current Visit: Yes Qualifiers: Syncope type: unspecified Qualified Code(s): R55 - Syncope and collapse (4) Elevated troponin SNOMED Code(s): 975125633, 324327358, 589974461 Code(s): R77.8 - OTHER SPECIFIED ABNORMALITIES OF PLASMA PROTEINS Status: Acute Current Visit: Yes - Problem List Review Problem List Initiated/Reviewed/Updated: Yes - My Orders Last 24 Hours: My Active Orders 03/18/21 21:00 Pantoprazole [ProTONIX] 40 mg PO BEDTIME - Plan Plan:: ASSESSMENT AND PLAN - Gastrointestinal hemorrhage, suspected versus iron deficiency anemia due to poor absorption-complicated by anemia and syncope. EGD unremarkable 03/13. Incomplete colon prep on [address] did not show any obvious source of bleeding but did show hernia as discussed below. Hemoglobin significantly improved after blood transfusion yesterday. -PPI -Defer colonoscopy for now -Hemoglobin in the morning Right inguinal hernia-status post surgical repair on 03/17 with delayed primary closure plan for 03/19. Pain well controlled. -Surgical consultation appreciated. Troponin elevation-mild, likely demand ischemia in the setting of severe anemia. Maintenance issues - -DVT prophylaxis-mechanical -GI prophylaxis-PPI -Nutrition-clear liquids, advance per surgical recommendations Disposition -I anticipate discharge home after the hospital stay Harsh Noriega M.D.
[2021-03-18] MEDS: Latanoprost 0.005% Ophth Soln 2.5 ML Bottle EYEBOTH SCH (21:10)
[2021-03-18] MEDS: Pantoprazole 40 MG Tab.CR PO SCH (21:11)
[2021-03-18] MEDS: atorvaSTATin 10 MG Tab PO SCH (21:14)
[2021-03-18] MEDS: Hypromellose 0.3% Ophth Soln 15 ML Bottle EYEBOTH SCH (21:14)
[2021-03-19] MEDS: Magnesium Sulfate/Water 2 GM in Premix Bag 1 BAG IV SCH ×3 (03:55→09:56)
[2021-03-19] MEDS: Acetaminophen 325 MG Tab PO SCH ×3 (06:26→18:27)
[2021-03-19] MEDS ORDERED: Lidocaine 1% with EPINEPHrine 1:100,000 50 ML MDV ONE (06:37)
[2021-03-19] MEDS ORDERED: Meropenem 500 MG SDV ONE (06:37)
[2021-03-19] MEDS ORDERED: Bupivacaine 0.5% 50 ML MDV ONE (06:37)
[2021-03-19] MEDS ORDERED: Propofol 200 MG/20 ML SDV ONE (07:18)
[2021-03-19] MEDS ORDERED: Ropivacaine 22 ML, dexAMETHasone 8 MG, EPINEPHrine 0.4 MG, Sodium Chloride 0.9% 55.6 ML NERVRT SCH ×4 (07:30)
[2021-03-19] MEDS ORDERED: HYDROmorphone 1 MG/ML Syringe IV ONE (08:30)
[2021-03-19] MEDS: Docusate Sodium 100 MG Cap PO SCH ×2 (08:57→20:23)
[2021-03-19] MEDS: Timolol Maleate 0.25% Ophth Soln 5 ML Bottle EYEBOTH SCH (08:57)
[2021-03-19] MEDS: Hydrochlorothiazide 25 MG Tab PO SCH (08:57)
[2021-03-19] MEDS: Levothyroxine 50 MCG Tab PO SCH (08:57)
[2021-03-19] MEDS: Mometasone Furoate HFA 100mcg/Puff 13 GM Inhaler INH SCH (10:38)
[2021-03-19] MEDS: Metoprolol Tartrate 25 MG Tab PO SCH ×2 (10:40→20:26)
[2021-03-19] MEDS: Bisacodyl 5 MG Tab PO SCH ×2 (10:40→20:23)
[2021-03-19] MEDS: Potassium Phos in 0.9 % NaCl 15 MMOL in Premix Bag 1 BAG IV SCH ×4 (10:41→13:52)
--- NOTE | 2021-03-19 11:13 | PCM.PN ---
- General Info Date of Service: 03/19/21 Subjective Update: No acute events overnight. Only minimal abdominal pain. Had a delayed primary closure this morning without incident. Mild hypokalemia noted on labs. She is hungry and excited to have regular food. No nausea. No fevers. Hemoglobin stable. Functional Status: Reports: Pain Controlled, Tolerating Diet - Review of Systems Gastrointestinal: Reports: Abdominal Pain (mild) - Patient Data Vitals - Most Recent: Last Vital Signs Temp 36.6 C 03/19/21 08:50 Pulse 66 03/19/21 10:40 Resp 16 03/19/21 10:30 BP 112/56 L 03/19/21 10:40 Pulse Ox 92 L 03/19/21 10:30 Weight - Most Recent: 45.132 kg I&O - Last 24 Hours: Intake & Output 03/18/21 03/19/21 03/19/21 22:59 06:59 14:59 Intake Total 2004 967 Output Total 450 850 50 Balance 1554 117 -50 Lab Results Last 24 Hours: Laboratory Results - last 24 hr 03/19/21 03/19/21 Range/Units 04:25 04:25 WBC 19.3 H (4.5-11.0) K/uL RBC 4.16 (3.30-5.50) M/uL Hgb 11.9 L (12.0-15.0) g/dL Hct 36.0 (36.0-48.0) % MCV 87 (80-98) fL MCH 29 (27-31) pg MCHC 33 (32-36) % Plt Count 210 (150-400) K/uL Neut % (Auto) 86.5 H (36-66) % Lymph % (Auto) 5.7 L (24-44) % Bartholomew % (Auto) 7.5 H (2-6) % Eos % (Auto) 0.2 L (2-4) % Baso % (Auto) 0.1 (0-1) % Sodium 131 L (140-148) mmol/L Potassium 3.3 L (3.6-5.2) mmol/L Chloride 97 L (100-108) mmol/L Carbon Dioxide 26 (21-32) mmol/L Anion Gap 11.3 (5.0-14.0) mmol/L BUN 4 L (7-18) mg/dL Creatinine 0.5 L (0.6-1.0) mg/dL Est Cr Clr Drug Dosing 59.68 mL/min Estimated GFR (MDRD) > 60 (>60) Glucose 101 (74-106) mg/dL Calcium 7.5 L (8.5-10.1) mg/dL Phosphorus 2.5 (2.5-4.9) mg/dL Total Bilirubin 0.7 (0.2-1.0) mg/dL AST 27 (15-37) U/L ALT 37 (12-78) U/L Alkaline Phosphatase 76 (46-116) U/L NT-Pro-B Natriuret Pep 1278 H (5-450) pg/mL Total Protein 5.2 L (6.4-8.2) g/dL Albumin 2.3 L (3.4-5.0) g/dL Globulin 2.9 (2.3-3.5) g/dL Albumin/Globulin Ratio 0.8 L (1.2-2.2) Med Orders - Current: Current Medications Acetaminophen (Acetaminophen 325 Mg Tab) 650 mg PO Q4H PRN PRN Reason: Pain (Mild 1-3)/fever Acetaminophen (Acetaminophen 325 Mg Tab) 650 mg PO Q6H [facility] Last Admin: 03/19/21 06:26 Dose: Not Given Documented by: Albuterol (Albuterol 0.083% 2.5 Mg/3 Ml Neb Soln) 2.5 mg NEB Q4H PRN PRN Reason: Shortness Of Breath/wheezing Alvimopan (Alvimopan 12 Mg Capsule) 12 mg PO BID [facility] Stop: 03/24/21 21:01 Last Admin: 03/19/21 08:57 Dose: 12 mg Documented by: Artificial Tears (Hypromellose 0.3% Ophth Soln 15 Ml Bottle) 0 ml EYEBOTH BEDTIME [facility] Last Admin: 03/18/21 21:14 Dose: 1 drop Documented by: Artificial Tears (Hypromellose 0.3% Ophth Soln 15 Ml Bottle) 0 ml EYEBOTH QID PRN PRN Reason: DRY EYES Atorvastatin Calcium (Atorvastatin 10 Mg Tab) 10 mg PO BEDTIME [facility] Last Admin: 03/18/21 21:14 Dose: 10 mg Documented by: Bisacodyl (Bisacodyl 5 Mg Tab) 10 mg PO BID [facility] Last Admin: 03/19/21 10:40 Dose: 10 mg Documented by: Docusate Sodium (Docusate Sodium 100 Mg Cap) 100 mg PO BID [facility] Last Admin: 03/19/21 08:57 Dose: 100 mg Documented by: Furosemide (Furosemide 20 Mg/2 Ml Vial) 10 mg IVPUSH ONETIME ONE Stop: 03/19/21 14:01 Hydrochlorothiazide (Hydrochlorothiazide 25 Mg Tab) 25 mg PO DAILY [facility] Last Admin: 03/19/21 08:57 Dose: 25 mg Documented by: Hydromorphone HCl (Hydromorphone 0.5 Mg/0.5 Ml Syringe) 0.5 mg IVPUSH Q2H PRN PRN Reason: Pain Last Admin: 03/18/21 02:15 Dose: 0.5 mg Documented by: Hydroxyzine HCl (Hydroxyzine Hcl 100 Mg/2 Ml Sdv) 50 mg IM Q4H PRN PRN Reason: Pain Last Admin: 03/17/21 18:02 Dose: 50 mg Documented by: Dextrose/Lactated Ringer's (Dextrose 5%-Lactated Ringers) 1,000 mls @ 80 mls/hr IV ASDIRECTED [facility] Last Admin: 03/18/21 19:12 Dose: 80 mls/hr Documented by: Potassium Phosphate 15 mmol/ (Premix) 250 mls @ 125 mls/hr IV Q2H [facility] Stop: 03/19/21 13:59 Last Admin: 03/19/21 10:41 Dose: 125 mls/hr Documented by: Potassium Chloride 20 meq/Lidocaine HCl 2 ml/ Sodium Chloride 112 mls @ 56 mls/hr IV Q2H [facility] Stop: 03/19/21 17:59 Latanoprost (Latanoprost 0.005% Ophth Soln 2.5 Ml Bottle) 0 ml EYEBOTH BEDTIME [facility] Last Admin: 03/18/21 21:10 Dose: 1 drop Documented by: Levothyroxine Sodium (Levothyroxine 50 Mcg Tab) 50 mcg PO ACBREAKFAST [facility] Last Admin: 03/19/21 08:57 Dose: 50 mcg Documented by: Lorazepam (Lorazepam 2 Mg/Ml Sdv) 0.5 mg IVPUSH Q4H PRN PRN Reason: Nausea/Vomiting Magnesium Hydroxide (Magnesium Hydroxide 400 Mg/5 Ml Susp 30 Ml Cup) 30 ml PO Q12H PRN PRN Reason: Constipation Melatonin (Melatonin 3 Mg Tab) 9 mg PO BEDTIME PRN PRN Reason: sleep Metoprolol Tartrate (Metoprolol Tartrate 25 Mg Tab) 25 mg PO BID [facility] Last Admin: 03/19/21 10:40 Dose: 25 mg Documented by: Mometasone Furoate (Mometasone Furoate Hfa 100mcg/Puff 13 Gm Inhaler) 0 gm INH DAILY [facility] Last Admin: 03/19/21 10:38 Dose: 2 puff Documented by: Ondansetron HCl (Ondansetron 4 Mg/2 Ml Sdv) 4 mg IV Q6H PRN PRN Reason: Nausea/Vomiting Ondansetron HCl (Ondansetron 4 Mg Tab.Dis) 4 mg PO Q6H PRN PRN Reason: Nausea able to take PO Last Admin: 03/19/21 01:34 Dose: 4 mg Documented by: Pantoprazole Sodium (Pantoprazole 40 Mg Tab.Cr) 40 mg PO BEDTIME [facility] Last Admin: 03/18/21 21:11 Dose: 40 mg Documented by: Senna/Docusate Sodium (Docusate Sodium/Sennosides 50-8.6 Mg Tab) 1 tab PO BID PRN PRN Reason: Constipation Timolol Maleate (Timolol Maleate 0.25% Ophth Soln 5 Ml Bottle) 0 ml EYEBOTH DAILY [facility] Last Admin: 03/19/21 08:57 Dose: 2 drop Documented by: Discontinued Medications Amlodipine Besylate (Amlodipine 5 Mg Tab) 2.5 mg PO DAILY [facility] Last Admin: 03/14/21 09:46 Dose: 2.5 mg Documented by: Bisacodyl (Bisacodyl 5 Mg Tab) 10 mg PO ONETIME ONE Stop: 03/13/21 14:01 Last Admin: 03/13/21 14:45 Dose: 10 mg Documented by: Bisacodyl (Bisacodyl 5 Mg Tab) 10 mg PO ONETIME ONE Stop: 03/13/21 20:01 Last Admin: 03/13/21 21:41 Dose: 10 mg Documented by: Bisacodyl (Bisacodyl 5 Mg Tab) 10 mg PO ONETIME ONE Stop: 03/15/21 11:01 Last Admin: 03/15/21 10:54 Dose: 10 mg Documented by: Bisacodyl (Bisacodyl 5 Mg Tab) 10 mg PO ONETIME ONE Stop: 03/16/21 09:01 Last Admin: 03/16/21 09:17 Dose: 10 mg Documented by: Bisacodyl (Bisacodyl 5 Mg Tab) 10 mg PO ONETIME ONE Stop: 03/16/21 13:01 Last Admin: 03/17/21 07:05 Dose: Not Given Documented by: Bupivacaine HCl (Bupivacaine 0.5% 50 Ml Mdv) Confirm Administered Dose 50 ml .ROUTE .STK-MED ONE Stop: 03/17/21 13:55 Bupivacaine HCl (Bupivacaine 0.5% 50 Ml Mdv) Confirm Administered Dose 50 ml .ROUTE .STK-MED ONE Stop: 03/19/21 06:38 Ropivacaine 22 ml/Dexamethasone 8 mg/Epinephrine HCl 0.4 mg/ Sodium Chloride 55.6 ml 0 ml NERVRT ASDIRECTED [facility] Last Admin: 03/17/21 15:11 Dose: 80 syringe Documented by: Ropivacaine 22 ml/Dexamethasone 8 mg/Epinephrine HCl 0.4 mg/ Sodium Chloride 55.6 ml 0 ml NERVRT ASDIRECTED [facility] Last Admin: 03/19/21 07:50 Dose: 80 syringe Documented by: Cyclobenzaprine HCl (Cyclobenzaprine 10 Mg Tab) 10 mg PO Q8H PRN PRN Reason: Muscle Spasm - Painful Dexamethasone (Dexamethasone 4 Mg/Ml Sdv) Confirm Administered Dose 4 mg .ROUTE .STK-MED ONE Stop: 03/17/21 10:15 Fentanyl (Fentanyl 250 Mcg/5 Ml Sdv) Confirm Administered Dose 250 mcg .ROUTE .STK-MED ONE Stop: 03/17/21 10:15 Glycopyrrolate (Glycopyrrolate 0.2 Mg/Ml 5 Ml Mdv) Confirm Administered Dose 1 mg .ROUTE .STK-MED ONE Stop: 03/17/21 10:15 Hydromorphone HCl (Hydromorphone 1 Mg/Ml Syringe) 0.5 mg IV ONETIME ONE Stop: 03/19/21 08:31 Last Admin: 03/19/21 08:22 Dose: 0.5 mg Documented by: Lactated Ringer's (Ringers, Lactated) 1,000 mls @ 75 mls/hr IV ASDIRECTED [facility] Last Admin: 03/13/21 21:22 Dose: 75 mls/hr Documented by: Lactated Ringer's (Ringers, Lactated) Confirm Administered Dose 1,000 mls @ as directed .ROUTE .ST-MED ONE Stop: 03/13/21 11:49 Sodium Chloride (Normal Saline) 70 mls @ 3 mls/sec IV ONETIME ONE Stop: 03/16/21 10:19 Last Admin: 03/16/21 10:50 Dose: 3 mls/sec Documented by: Cefoxitin Sodium 2 gm/ Sodium (Chloride) 50 mls @ 100 mls/hr IV ONCALL ONE Stop: 03/17/21 10:29 Last Admin: 03/17/21 14:32 Dose: 100 mls/hr Documented by: Linezolid (Zyvox) Confirm Administered Dose 300 mls @ as directed .ROUTE .[facility] ONE Stop: 03/17/21 08:12 Dextrose/Lactated Ringer's (Dextrose 5%-Lactated Ringers) 1,000 mls @ 100 mls/hr IV ASDIRECTED [facility] Last Admin: 03/18/21 04:33 Dose: 100 mls/hr Documented by: Lidocaine HCl (Xylocaine-Mpf 1%) Confirm Administered Dose 2 mls @ as directed .ROUTE .[facility] ONE Stop: 03/17/21 14:29 Cefoxitin Sodium 1 gm/ Sodium (Chloride) 50 mls @ 100 mls/hr IV Q6H [facility] Stop: 03/18/21 14:59 Last Admin: 03/18/21 15:13 Dose: 100 mls/hr Documented by: Magnesium Sulfate 2 gm/ Premix 50 mls @ 25 mls/hr IV Q6HR [facility] Stop: 03/20/21 05:59 Last Admin: 03/19/21 09:56 Dose: Not Given Documented by: Iopamidol (Iopamidol 612 Mg/Ml 100 Ml Bottle) 68 ml IV . DIRECTED PRN PRN Reason: RADIOLOGY EXAM Stop: 03/16/21 10:19 Last Admin: 03/16/21 10:50 Dose: 68 ml Documented by: Levothyroxine Sodium (Levothyroxine 25 Mcg Tab) 50 mcg PO ACBREAKFAST [facility] Last Admin: 03/15/21 07:17 Dose: 50 mcg Documented by: Lidocaine/Epinephrine (Lidocaine 1% With Epinephrine 1:100,000 50 Ml Mdv) Confirm Administered Dose 50 ml .ROUTE .STK-MED ONE Stop: 03/17/21 13:55 Lidocaine/Epinephrine (Lidocaine 1% With Epinephrine 1:100,000 50 Ml Mdv) Confirm Administered Dose 50 ml .ROUTE .STK-MED ONE Stop: 03/19/21 06:38 Meropenem (Meropenem 500 Mg Sdv) Confirm Administered Dose 500 mg .ROUTE .STK- MED ONE Stop: 03/17/21 08:12 Meropenem (Meropenem 500 Mg Sdv) Confirm Administered Dose 500 mg .ROUTE .STK- MED ONE Stop: 03/19/21 06:38 Neostigmine Methylsulfate (Neostigmine Methylsulfate 1 Mg/Ml 5 Ml Syringe) Confirm Administered Dose 5 mg .ROUTE .STK-MED ONE Stop: 03/17/21 10:15 Ondansetron HCl (Ondansetron 4 Mg Tab.Dis) 4 mg PO ONETIME ONE Stop: 03/13/21 03:45 Last Admin: 03/13/21 03:57 Dose: 4 mg Documented by: Ondansetron HCl (Ondansetron 4 Mg/2 Ml Sdv) Confirm Administered Dose 4 mg .ROUTE .STK-MED ONE Stop: 03/17/21 10:15 Pantoprazole Sodium (Pantoprazole 40 Mg Vial) 40 mg IVPUSH ONETIME ONE Stop: 03/13/21 10:46 Last Admin: 03/13/21 11:10 Dose: 40 mg Documented by: Pantoprazole Sodium (Pantoprazole 40 Mg Vial) 40 mg IV Q12H [facility] Last Admin: 03/13/21 22:42 Dose: 40 mg Documented by: Pantoprazole Sodium (Pantoprazole 40 Mg Vial) 40 mg IV Q24H [facility] Last Admin: 03/17/21 22:08 Dose: 40 mg Documented by: Restasis Ptom 0 each EYEBOTH BID [facility] Last Admin: 03/13/21 21:36 Dose: Not Given Documented by: Polyethylene Glycol (Polyethylene Glycol 3350 Powder 238 Gm Bot) 238 gm PO ONETIME ONE Stop: 03/13/21 17:01 Last Admin: 03/13/21 17:50 Dose: 1 carton Documented by: Polyethylene Glycol (Polyethylene Glycol 3350 Powder 238 Gm Bot) 238 gm PO ONETIME ONE Stop: 03/15/21 13:01 Last Admin: 03/15/21 12:39 Dose: 238 gm Documented by: Polyethylene Glycol (Polyethylene Glycol 3350 Powder 238 Gm Bot) 238 gm PO ONETIME ONE Stop: 03/16/21 11:01 Last Admin: 03/16/21 14:04 Dose: Not Given Documented by: Potassium Chloride (Potassium Chloride 20 Meq Tab.Er) 40 meq PO ONETIME ONE Stop: 03/17/21 16:01 Last Admin: 03/17/21 18:01 Dose: 40 meq Documented by: Propofol (Propofol 200 Mg/20 Ml Sdv) Confirm Administered Dose 200 mg .ROUTE .STK-MED ONE Stop: 03/13/21 11:42 Propofol (Propofol 200 Mg/20 Ml Sdv) Confirm Administered Dose 200 mg .ROUTE .STK-MED ONE Stop: 03/14/21 07:21 Propofol (Propofol 200 Mg/20 Ml Sdv) Confirm Administered Dose 200 mg .ROUTE .STK-MED ONE Stop: 03/16/21 07:24 Propofol (Propofol 200 Mg/20 Ml Sdv) Confirm Administered Dose 200 mg .ROUTE .STK-MED ONE Stop: 03/17/21 10:15 Propofol (Propofol 200 Mg/20 Ml Sdv) Confirm Administered Dose 200 mg .ROUTE .STK-MED ONE Stop: 03/19/21 07:19 Rocuronium [place] (Rocuronium 50 Mg/5 Ml Vial) Confirm Administered Dose 50 mg .ROUTE .STK-MED ONE Stop: 03/17/21 10:15 Sodium Chloride (Sodium Chloride 0.9% 10 Ml Syringe) 10 ml FLUSH ONETIME PRN PRN Reason: PER RADIOLOGY PROTOCOL Stop: 03/16/21 10:19 Last Admin: 03/16/21 10:50 Dose: 10 ml Documented by: Succinylcholine Chloride (Succinylcholine 200 Mg/10 Ml Mdv) Confirm Administered Dose 200 mg .ROUTE .STK-MED ONE Stop: 03/17/21 10:15 - Exam Quality Assessment: No: Supplemental Oxygen Urinary Catheter Total Time: 1Days 11Hours General: Alert, Oriented, Cooperative, No Acute Distress Lungs: Normal Respiratory Effort. No: Wheezing GI/Abdominal Exam: Soft, No Distention Extremities: No Pedal Edema Psy/Mental Status: Alert, Normal Affect - Patient Data Lab Results Last 24 hrs: Laboratory Results - last 24 hr 03/19/21 03/19/21 Range/Units 04:25 04:25 WBC 19.3 H (4.5-11.0) K/uL RBC 4.16 (3.30-5.50) M/uL Hgb 11.9 L (12.0-15.0) g/dL Hct 36.0 (36.0-48.0) % MCV 87 (80-98) fL MCH 29 (27-31) pg MCHC 33 (32-36) % Plt Count 210 (150-400) K/uL Neut % (Auto) 86.5 H (36-66) % Lymph % (Auto) 5.7 L (24-44) % Bartholomew % (Auto) 7.5 H (2-6) % Eos % (Auto) 0.2 L (2-4) % Baso % (Auto) 0.1 (0-1) % Sodium 131 L (140-148) mmol/L Potassium 3.3 L (3.6-5.2) mmol/L Chloride 97 L (100-108) mmol/L Carbon Dioxide 26 (21-32) mmol/L Anion Gap 11.3 (5.0-14.0) mmol/L BUN 4 L (7-18) mg/dL Creatinine 0.5 L (0.6-1.0) mg/dL Est Cr Clr Drug Dosing 59.68 mL/min Estimated GFR (MDRD) > 60 (>60) Glucose 101 (74-106) mg/dL Calcium 7.5 L (8.5-10.1) mg/dL Phosphorus 2.5 (2.5-4.9) mg/dL Total Bilirubin 0.7 (0.2-1.0) mg/dL AST 27 (15-37) U/L ALT 37 (12-78) U/L Alkaline Phosphatase 76 (46-116) U/L NT-Pro-B Natriuret Pep 1278 H (5-450) pg/mL Total Protein 5.2 L (6.4-8.2) g/dL Albumin 2.3 L (3.4-5.0) g/dL Globulin 2.9 (2.3-3.5) g/dL Albumin/Globulin Ratio 0.8 L (1.2-2.2) Result Diagrams: 03/19/21 04:25 03/19/21 04:25 Sepsis Event Note - Evaluation Sepsis Screening Result: No Definite Risk - Focused Exam Vital Signs: Vital Signs Temp Temp Pulse Pulse Resp BP BP 03/19/21 10:40 66 112/56 L 03/19/21 10:30 68 16 03/19/21 10:00 68 16 03/19/21 09:45 69 16 03/19/21 09:30 69 16 03/19/21 09:15 66 16 03/19/21 09:01 77 16 03/19/21 08:50 36.6 C 78 16 03/19/21 08:35 75 14 03/19/21 08:30 36.6 C 90 14 03/19/21 08:25 76 14 03/19/21 08:20 92 16 03/19/21 08:15 77 16 03/19/21 08:10 82 16 03/19/21 08:05 80 14 03/19/21 08:00 95 14 03/19/21 07:55 36.6 C 101 H 12 106/48 L 03/19/21 03:00 36.1 C 77 18 BP Pulse Ox 03/19/21 10:40 03/19/21 10:30 112/56 L 92 L 03/19/21 10:00 112/53 L 93 L 03/19/21 09:45 122/56 L 93 L 03/19/21 09:30 121/50 L 93 L 03/19/21 09:15 127/52 L 92 L 03/19/21 09:01 125/59 L 92 L 03/19/21 08:50 134/60 93 L 03/19/21 08:35 115/57 L 94 L 03/19/21 08:30 117/60 93 L 03/19/21 08:25 118/55 L 94 L 03/19/21 08:20 124/61 94 L 03/19/21 08:15 120/57 L 95 03/19/21 08:10 116/59 L 95 03/19/21 08:05 113/58 L 98 03/19/21 08:00 111/59 L 97 03/19/21 07:55 97 03/19/21 03:00 123/61 93 L - Problem List & Annotations (1) GI bleed SNOMED Code(s): 05924255 Code(s): K92.2 - GASTROINTESTINAL HEMORRHAGE, UNSPECIFIED Status: Acute Current Visit: Yes Qualifiers: GI bleed type/associated pathology: unspecified gastrointestinal hemorrhage type Qualified Code(s): K92.2 - Gastrointestinal hemorrhage, unspecified (2) Anemia due to blood loss, acute SNOMED Code(s): 318334826 Code(s): D62 - ACUTE POSTHEMORRHAGIC ANEMIA Status: Acute Current Visit: Yes (3) Syncope SNOMED Code(s): 097978626 Code(s): R55 - SYNCOPE AND COLLAPSE Status: Acute Current Visit: Yes Qualifiers: Syncope type: unspecified Qualified Code(s): R55 - Syncope and collapse (4) Elevated troponin SNOMED Code(s): 799500943, 877903725, 865885398 Code(s): R77.8 - OTHER SPECIFIED ABNORMALITIES OF PLASMA PROTEINS Status: Acute Current Visit: Yes - Problem List Review Problem List Initiated/Reviewed/Updated: Yes - My Orders Last 24 Hours: My Active Orders 03/18/21 21:00 Pantoprazole [ProTONIX] 40 mg PO BEDTIME - Plan Plan:: ASSESSMENT AND PLAN - Gastrointestinal hemorrhage, suspected versus iron deficiency anemia due to poor absorption-complicated by anemia and syncope. EGD unremarkable 03/13. In complete colon prep on [address] did not show any obvious source of bleeding but did show hernia as discussed below. Hemoglobin significantly improved after blood transfusion. -PPI -Defer colonoscopy for now -Hemoglobin in the morning Right inguinal hernia-status post surgical repair on 03/17 with delayed primary closure plan for 03/19. Pain well controlled. -Surgical consultation appreciated. Hypokalemia-mild, plan to replace today and recheck in the morning. Troponin elevation-mild, likely demand ischemia in the setting of severe anemia. Maintenance issues - -DVT prophylaxis-mechanical -GI prophylaxis-PPI -Nutrition-clear liquids, advance per surgical recommendations Disposition -I anticipate discharge home after the hospital stay Harsh Noriega M.D.
[2021-03-19] MEDS ORDERED: Furosemide 20 MG/2 ML VIAL IVPUSH ONE (14:00)
[2021-03-19] MEDS: Potassium Chloride 20 MEQ, Lidocaine 1% 2 ML in Sodium Chloride 0.9% 100 ML IV SCH ×2 (16:33→18:36)
[2021-03-19] MEDS: Hypromellose 0.3% Ophth Soln 15 ML Bottle EYEBOTH SCH (20:24)
[2021-03-19] MEDS: atorvaSTATin 10 MG Tab PO SCH (20:25)
[2021-03-19] MEDS: Pantoprazole 40 MG Tab.CR PO SCH (20:27)
[2021-03-19] MEDS: Latanoprost 0.005% Ophth Soln 2.5 ML Bottle EYEBOTH SCH (20:28)
[2021-03-20] MEDS: Acetaminophen 325 MG Tab PO SCH ×4 (02:25→17:40)
[2021-03-20] MEDS: Levothyroxine 50 MCG Tab PO SCH (07:48)
[2021-03-20] MEDS: Mometasone Furoate HFA 100mcg/Puff 13 GM Inhaler INH SCH (09:02)
[2021-03-20] MEDS: Timolol Maleate 0.25% Ophth Soln 5 ML Bottle EYEBOTH SCH (09:04)
[2021-03-20] MEDS: Bisacodyl 5 MG Tab PO SCH ×2 (09:04→20:08)
[2021-03-20] MEDS: Metoprolol Tartrate 25 MG Tab PO SCH ×2 (09:04→20:08)
[2021-03-20] MEDS: Hydrochlorothiazide 25 MG Tab PO SCH (09:04)
[2021-03-20] MEDS: Docusate Sodium 100 MG Cap PO SCH ×2 (09:04→20:08)
[2021-03-20] MEDS: Hypromellose 0.3% Ophth Soln 15 ML Bottle EYEBOTH SCH (20:08)
[2021-03-20] MEDS: atorvaSTATin 10 MG Tab PO SCH (20:08)
[2021-03-20] MEDS: Latanoprost 0.005% Ophth Soln 2.5 ML Bottle EYEBOTH SCH (20:08)
[2021-03-20] MEDS: Pantoprazole 40 MG Tab.CR PO SCH (20:08)
[2021-03-21] MEDS: Acetaminophen 325 MG Tab PO SCH ×5 (02:04→23:12)
[2021-03-21] MEDS ORDERED: Furosemide 20 MG/2 ML VIAL IVPUSH ONE (06:41)
[2021-03-21] MEDS ORDERED: Calcium Carbonate 500 MG Tab.Chew PO PRN (06:43)
[2021-03-21] MEDS: Levothyroxine 50 MCG Tab PO SCH (07:10)
[2021-03-21] MEDS: Mometasone Furoate HFA 100mcg/Puff 13 GM Inhaler INH SCH (08:27)
[2021-03-21] MEDS: Docusate Sodium 100 MG Cap PO SCH ×2 (08:32→20:04)
[2021-03-21] MEDS: Hydrochlorothiazide 25 MG Tab PO SCH (08:33)
[2021-03-21] MEDS: Timolol Maleate 0.25% Ophth Soln 5 ML Bottle EYEBOTH SCH (08:34)
[2021-03-21] MEDS: Metoprolol Tartrate 25 MG Tab PO SCH ×2 (08:36→20:06)
[2021-03-21] MEDS: Potassium Chloride 20 MEQ Tab.ER PO SCH ×3 (08:37→20:05)
[2021-03-21] MEDS: Metoclopramide 10 MG/2 ML SDV IVPUSH SCH ×3 (08:42→20:04)
[2021-03-21] MEDS: Bisacodyl 10 MG Supp RECTAL SCH ×2 (08:42→20:06)
--- NOTE | 2021-03-21 09:11 | PN ---
DATE OF SERVICE: 03/20/2021 SUBJECTIVE: Ana reports her pain is controlled with Tylenol. She is up ambulating with assist of one and using a walker. Had a large bowel movement this morning. Tolerated a regular diet. She is saline locked. Intake 960, output 1150. LABORATORY DATA: This morning white count 15.8, hemoglobin 12.6. Potassium 4.2, glucose 126, BNP 1205. REVIEW OF SYSTEMS: Remainder of review of systems negative for any pertinent positives and negatives. OBJECTIVE: GENERAL: Ana is a pleasant 85-year-old female. VITAL SIGNS: TPR is 96.8, 68, 18. Blood pressure 114/58. HEENT: Negative. NECK: Supple. HEART: Regular rate and rhythm. LUNGS: Clear. ABDOMEN: Dressings dry and intact. Abdominal binder is on. EXTREMITIES: Without peripheral edema. ASSESSMENT: Exploratory laparotomy with: 1. Reduction and repair of incarcerated incisional hernia. 2. Rectosigmoid resection and coloproctostomy. 3. Excision of enteral nodule overlying colon. 4. Placement of Interceed mesh. POSTOPERATIVE DIAGNOSES: 1. Incarcerated right side Pfannenstiel incisional hernia. 2. Sigmoid colon volvulus. 3. Peritoneal nodule 1 cm over surface of colon. Date of procedure 03/17/2021. Surgeon: Brad Burdick MD. 4. Delayed primary closure for open abdominal incision. Date of procedure 03/19/2021. Surgeon: Brad Burdick MD. PLAN: 1. May shower. 2. Ensure protein supplements q.i.d. and at bedtime. 3. Consult for home health care. Patient lives alone. 4. Check CBC, CMP, phos, and BNP in a.m. 5. Continue use of incentive spirometer and ambulation. 6. We will evaluate p.r.n. or in a.m. Alix Hopkins PA-C /[id number]
--- NOTE | 2021-03-21 09:12 | PN ---
DATE OF SERVICE: 03/21/2021 SUBJECTIVE: Ana reports weakness. Otherwise, she is up, ambulating. Vital signs have been stable. Oral intake 1800. Urine output 2350. Last bowel movement was 03/20/2021. Pain is controlled with Tylenol. Hemoglobin 10.3, potassium 3.4, and BNP is 1373. REVIEW OF SYSTEMS: Remainder of review of systems negative for any pertinent positives and negatives. OBJECTIVE: GENERAL: Ana Ramírez is a pleasant 85-year-old female. She is alert and orientated. VITAL SIGNS: TPR 97.7, 72, 18. Blood pressure 141/45. HEENT: Negative. NECK: Supple. HEART: Regular rate and rhythm. LUNGS: Clear. ABDOMEN: Aquacel dressing is on. Abdominal binder is on. EXTREMITIES: Without peripheral edema. ASSESSMENT: Exploratory laparotomy with: 1. Reduction and open incarcerated incisional hernia. 2. Rectosigmoid resection with coloproctostomy. 3. Excision of antral nodule overlying colon. 4. Placement of Interceed mesh. POSTOPERATIVE DIAGNOSES: 1. Incarcerated incisional hernia, right side, Pfannenstiel incision. 2. Sigmoid colon volvulus. 3. Peritoneal nodule, 1 cm, over surface of ascending colon. Date of procedure 03/17/2021. Delayed primary closure for open abdominal incision, 03/19/2021. PLAN: 1. Lasix 10 mg IV one time today. 2. KCl 20 mEq oral t.i.d. today. 3. Check ferritin, B12, and folate on blood that has already been drawn and Tums 1000 mg q.2 hours p.r.n. heartburn, may keep at bedside. 4. Discharge planning. The patient is requesting to go to long term for rehab. 5. We will evaluate p.r.n. or in a.m. Alix Hopkins PA-C /[id number]
--- NOTE | 2021-03-21 10:25 | CR ---
Abdomen 2V AP Flat Upright CLINICAL HISTORY: Postop belching and upper epigastric pain FINDINGS: Patient is status post lower abdominal surgery. There is some residual intraperitoneal air under the right hemidiaphragm. There is persistent the small bowel distention. There is gas and fluid in the stomach No definite bowel loops are seen below the right inguinal ligament. IMPRESSION: Status post recent lower abdominal surgery Nonspecific small bowel distention may represent some postoperative ileus Slight gastric distention with fluid and air
--- NOTE | 2021-03-21 11:57 | OR ---
DATE OF PROCEDURE: 03/17/2021 SURGEON: Brad Burdick MD PREOPERATIVE DIAGNOSIS: Incarcerated right inguinal hernia containing small and large bowel with significant underlying bowel and mesenteric inflammation. POSTOPERATIVE DIAGNOSES: 1. Incarcerated incisional hernia involving the right side of Pfannenstiel incision. 2. 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 3. Peritoneal nodule overlying the surface of the ascending colon. OPERATIVE PROCEDURE: Exploratory laparotomy with: 1. Reduction and repair of incarcerated incisional hernia (17552). 2. Rectosigmoid resection with coloproctostomy (76448). 3. Excision of peritoneal nodule overlying the ascending colon (91820). 4. Placement of Interceed mesh underlying the incision and adjacent pelvic and abdominal wall to limit recurrent adhesion formation between those surfaces and the underlying viscera (79874). ANESTHESIA: General. FLASH OVEN OPERATOR: Alix Hopkins PA-C INDICATIONS FOR PROCEDURE: This is an 85-year-old presenting with some anemia. She had a recent upper endoscopy which was negative for bleeding site, and after 2 attempts of obtaining a colonoscopy prep being unsuccessful, a CT scan of the abdomen was obtained which showed a large hernia which was felt at the time to be inguinal containing both the large and small bowel with quite a bit of edema involving the areas of bowel within the hernia and the adjacent mesentery. The plan will be to proceed with an initial laparotomy through the lower midline incision with the anticipation that the bowel will need to be closely examined. This will also afford a full digital examination of the large and small bowel to look for any additional pathology and there would be a significant chance we would be able to repair the hernia from within the intraabdominal approach with or without mesh depending on whether or not any bowel resection is required. Potential risks of the procedure including bleeding, infection, injury to underlying viscera, leaks from any GI tract closures, problems with the hernia recurring were all reviewed along with the remote possibility of cardiopulmonary, septic, or hemorrhagic complications leading to , and the patient wishes to proceed. DETAILS OF PROCEDURE: The patient was taken to the operating room and placed in a supine position. After general endotracheal anesthesia was induced, the Yun catheter was inserted, and the abdomen prepped and draped. Lower midline incision from the umbilicus down to the pubis was made and carried down through the full-thickness abdominal wall. Upon entering the peritoneal cavity, there were some omental adhesions to the anterior abdominal wall which were taken down. At that point, the large bowel which remained within the hernia was reduced. This was noted to be an area of sigmoid colon which had actually volvulized in that area. There was a significant increase in the sigmoid colon mesentery due to the chronicity of the volvulus, and given this, it was felt that the sigmoid colon would be best resected to avoid subsequent volvulus to develop. Otherwise, the small bowel was traced from the ligament of Treitz to the ileocecal valve and then the entire large bowel was examined to try to identify any additional pathology. The only pathology seen was a 1 cm nodular implant on the peritoneal surface of the ascending colon. This was excised and sent as a separate specimen. Apart from that, there were no masses or palpable or visible abnormalities within the large bowel or rectum. Of note, the hernia appeared to be more consistent with an incisional hernia through the right lateral aspect of the previous Pfannenstiel incision and an incisional hernia. At any rate at this point, the hernia contents were freed with some additional omental adhesions and the peritoneum within it excised. The hernia was then repaired by suturing the conjoint tendon down to the Adolph's ligament for the length of the hernia with #2 Vicryl stitch. The sutures went through the conjoint tendon and then through the periosteum of Adolph's ligament and at that point the hernia repair appeared to be satisfactorily completed. Because of the subsequent bowel resection, we elected not to use mesh in this case. Attention was then taken to the rectosigmoid resection. The rectum was divided at a point somewhat below the peritoneal reflection and then the mid sigmoid colon also divided both with RAOUL purple loads and intervening mesentery was then divided with RAOUL mendenhall loads. The coloproctostomy was then accomplished with 2 internal firings of the Endo-RAOUL mendenhall load 60 mm in length and then closed transversely with purple loads. This allowed us very satisfactory lumen without tension. Angles of anastomosis were then reinforced with some 3-0 Vicryl stitch and the underlying mesentery was also closed with 3-0 Vicryl stitch. At this point, the abdomen was irrigated with meropenem-containing saline solution. The coloproctostomy was then reinforced with fibrin sealant circumferentially and at that point no further problems were noted. A drain was felt not to be necessary. The posterior peritoneum was then approximated with #2 Vicryl stitch as was the anterior fascia. The skin and subcutaneous tissue were felt to be high risk for wound infection and therefore were then left open for a planned delayed primary closure. Prior to closure of the fascia and peritoneum, an Interceed mesh was placed underneath the incision and along the pelvic sidewalls adjacent to it to limit recurrent adhesion formation in those areas. Subcutaneous tissue was then anesthetized with 1% lidocaine mixed with Marcaine and the wound packed open with Iodoform gauze. The patient was taken to the recovery room in satisfactory condition. Physician assistant principal, Alix Hopkins, played an essential role in assisting in this case, helping to position the patient, retracting structures as needed as well as suturing and cutting sutures when indicated. Her presence improved patient safety and decreased the operative time. Brad Burdick MD /[id number]
--- NOTE | 2021-03-21 12:36 | OR ---
DATE OF PROCEDURE: 03/19/2021 SURGEON: Brad Burdick MD PREOPERATIVE DIAGNOSIS: Open abdominal incision. POSTOPERATIVE DIAGNOSIS: Open abdominal incision. PROCEDURE: Delayed primary closure of open abdominal incision. ANESTHESIA: Local plus IV sedation. INDICATION FOR PROCEDURE: The patient is 48 hours status post a sigmoid colon resection at which time the skin and subcutaneous tissue were felt to be at high risk for wound infection should they be closed primarily and the plan is to proceed with a delayed primary closure at this time. Potential risks of the procedure including bleeding and infection were reviewed and the patient wishes to proceed. DETAILS OF PROCEDURE: The patient was taken to the operating room and placed in a supine position, sitting up roughly 30 degrees so as to minimize the aspiration risk. The patient was given IV sedation and previous operative dressing was taken down. The wound was inspected and found to be clean. The wound was then prepped and draped, anesthetized with 1% lidocaine mixed with Marcaine, and irrigated with meropenem-containing saline solution. Subcutaneous tissue was then approximated with 2 layers of 3-0 Vicryl stitch and the skin with quinten. Ultrasound-guided bilateral transversus abdominis plane blocks had also been placed and the dressing applied. The patient was taken to the recovery room in satisfactory condition. Brad Burdick MD /[id number]
--- NOTE | 2021-03-21 12:36 | PN ---
DATE OF SERVICE: 03/18/2021 The patient has been afebrile with stable vital signs. White count is 24,000, but that would be expected given the operative procedure yesterday and hemoglobin is up to 11. Otherwise, she has been afebrile with stable vital signs. Urine output has been noted. Magnesium is somewhat on the low side and we will supplement that over the next couple of days. Otherwise, continue the clear liquid diet today giving her 3 doses of Ensure and we will back down on the IV rate. Her BNP is up a little bit from baseline at 1635 the IV rate will be coming down and she will be getting a scheduled dose of hydrochlorothiazide today and that will be rechecked tomorrow. Otherwise, proceed with the delayed primary closure of abdominal incision tomorrow. Brad Brudick MD /[id number]
--- NOTE | 2021-03-21 13:06 | PN ---
DATE OF SERVICE: 03/19/2021 The patient has been afebrile with stable vital signs. She had nausea overnight, this has now cleared. No flatus or bowel movement as of yet. She underwent the delayed primary closure of the abdominal incision without incident today. Her potassium, chloride, and phosphate are all marginally low and those will be supplemented today. Otherwise, we will go back up to regular diet. Continue the bowel stimulation. Discontinue the Yun catheter. Maximize activity, work with pulmonary toilet. Her BNP remains slightly elevated with the fluid she is getting from the potassium supplements. We will give her a small dose of Lasix IV today as well. Brad Burdick MD /[id number]
[2021-03-21] MEDS: Pantoprazole 40 MG Tab.CR PO SCH (20:04)
[2021-03-21] MEDS: Hypromellose 0.3% Ophth Soln 15 ML Bottle EYEBOTH SCH (20:05)
[2021-03-21] MEDS: atorvaSTATin 10 MG Tab PO SCH (20:06)
[2021-03-21] MEDS: Latanoprost 0.005% Ophth Soln 2.5 ML Bottle EYEBOTH SCH (20:07)
[2021-03-22] MEDS: Metoclopramide 10 MG/2 ML SDV IVPUSH SCH (02:05)
[2021-03-22] MEDS: Acetaminophen 325 MG Tab PO SCH ×4 (05:19→23:19)
[2021-03-22] MEDS: Levothyroxine 50 MCG Tab PO SCH (06:58)
[2021-03-22] MEDS: Mometasone Furoate HFA 100mcg/Puff 13 GM Inhaler INH SCH (08:01)
[2021-03-22] MEDS: Timolol Maleate 0.25% Ophth Soln 5 ML Bottle EYEBOTH SCH (08:31)
[2021-03-22] MEDS: Potassium Chloride 20 MEQ Tab.ER PO SCH ×3 (08:32→17:07)
[2021-03-22] MEDS: Docusate Sodium 100 MG Cap PO SCH ×2 (08:32→19:59)
[2021-03-22] MEDS: Hydrochlorothiazide 25 MG Tab PO SCH (08:32)
[2021-03-22] MEDS: Metoclopramide 10 MG Tab PO SCH ×3 (08:33→19:59)
[2021-03-22] MEDS: Metoprolol Tartrate 25 MG Tab PO SCH ×2 (08:33→20:00)
[2021-03-22] MEDS: Bisacodyl 10 MG Supp RECTAL SCH ×3 (08:37→19:59)
--- NOTE | 2021-03-22 08:39 | PN ---
DATE OF SERVICE: 03/22/2021 SUBJECTIVE: Ana developed a mild ileus yesterday which has resolved. She has had 2 bowel movements, tolerating a step 1 diet. Oral intake 2520. Urine output 3800. Hemoglobin this morning was 10.4. BNP is 1038. She reports that she is feeling much better today. Has no questions or concerns. OBJECTIVE: GENERAL: Ana is a pleasant 85-year-old female. VITAL SIGNS: TPR is 97.9, 71, 18, blood pressure 122/59. HEENT: Negative. NECK: Supple. HEART: Regular rate and rhythm. LUNGS: Clear. ABDOMEN: Dressing dry and intact. Abdominal binder is on. EXTREMITIES: Without peripheral edema. ASSESSMENT: 1. Exploratory laparotomy with: a. Reduction and repair of incarcerated incisional hernia. b. Rectosigmoid resection with coloproctostomy. c. Excision of peritoneal nodule overlying the ascending colon. d. Placement of Interceed mesh underlying the incision in the adjacent pelvic and abdominal wall to limit recurrent adhesion formation between those surfaces and the underlying viscera. e. Date of procedure: 03/17/2021. Surgeon: Brad Burdick MD. PLAN: 1. Regular diet. 2. KCl 20 mEq p.o. 3 times a day today only. 3. Check CBC, CMP, mag, phos, and BNP in a.m. 4. Change Aquacel dressing in a.m. 5. Plan discharge in a.m. with home health care. Alix Hopkins PA-C /[id number]
--- NOTE | 2021-03-22 09:46 | CR ---
Abdomen 2V AP Flat Upright CLINICAL HISTORY: Epigastric pressure FINDINGS: There is a decrease in gastric distention. There are scattered air-filled loops of small bowel with a decrease in distention when compared to prior study. Postoperative intraperitoneal air is similar. There are bilateral pleural effusions IMPRESSION: Decrease in gastric distention Slight decrease in intestinal distention Small bilateral pleural effusions
[2021-03-22] MEDS: Hypromellose 0.3% Ophth Soln 15 ML Bottle EYEBOTH SCH (19:59)
[2021-03-22] MEDS: Latanoprost 0.005% Ophth Soln 2.5 ML Bottle EYEBOTH SCH (19:59)
[2021-03-22] MEDS: Pantoprazole 40 MG Tab.CR PO SCH (20:00)
[2021-03-22] MEDS: atorvaSTATin 10 MG Tab PO SCH (20:01)
[2021-03-23] MEDS: Metoclopramide 10 MG Tab PO SCH ×2 (02:07→07:11)
[2021-03-23] MEDS: Acetaminophen 325 MG Tab PO SCH (05:34)
[2021-03-23] MEDS: Levothyroxine 50 MCG Tab PO SCH (07:11)
[2021-03-23] MEDS: Mometasone Furoate HFA 100mcg/Puff 13 GM Inhaler INH SCH (08:36)
[2021-03-23] MEDS: Docusate Sodium 100 MG Cap PO SCH (08:57)
[2021-03-23] MEDS: Bisacodyl 10 MG Supp RECTAL SCH (08:57)
[2021-03-23] MEDS: Metoprolol Tartrate 25 MG Tab PO SCH (08:58)
[2021-03-23] MEDS: Hydrochlorothiazide 25 MG Tab PO SCH (08:58)
--- NOTE | 2021-03-23 08:58 | DISCH ---
ADMISSION DIAGNOSES: 1. Weakness. 2. Anemia. Hemoglobin less than 6. 3. Hypertension. 4. History of atrial fibrillation. 5. Aortic stenosis. 6. Asthma. 7. Arthritis. 8. Osteoporosis. 9. Hypothyroidism. 10.Iron deficiency anemia. 11.History of basal cell carcinoma. DISCHARGE DIAGNOSES: Exploratory laparotomy with: 1. Reduction repair of incarcerated incisional hernia. 2. Rectosigmoid resection and coloproctostomy. 3. Excision of peritoneal nodule overlying the ascending colon. 4. Placement of Interceed mesh underlining incision of adjacent pelvic and abdominal wall to limit recurrent adhesion formation between all surfaces and underlying viscera. Date of procedure 03/17/2021. Surgeon: Brad Burdick MD. Delayed primary closure for open abdominal incision, 03/19/2021. Surgeon: Brad Burdick MD. POSTOPERATIVE DIAGNOSES: 1. Incarcerated incisional hernia, right side. Pfannenstiel incision. 2. Sigmoid colon volvulus. 3. Peritoneal nodule 1 cm over surface of the ascending colon. Esophagogastroduodenoscopy, 03/13/2021, for anemia. Luis Eduardo Fall MD. HISTORY: Ana presented to the emergency room per ambulance for weakness and was found to have a hemoglobin of 5.9. She was given 2 units of red blood cells. Her hemoglobin did go to 8.8. She had an EGD that day, which was negative. Two days were attempted to do a colonoscopy, but she was unable to completely be prepared for her colon would not empty for the colonoscopy. A CT scan was obtained and did reveal a right inguinal hernia with some bowel that is caught up in that. She did have surgery then on 03/17/2021. She had no operative complications. She progressed very well. She started having bowel movements, was started on a regular diet. She did have one day on 03/20/2021, where she developed little bit of nausea, had a slight ileus. Diet was backed off for 24 hours and resolved on its own. On 03/23/2021, she was able to be discharged to home with home health care, home health aide, physical therapy, and nursing. Her son will be staying with her. PHYSICAL EXAMINATION: GENERAL: Ana is a pleasant 85-year-old female. VITAL SIGNS: Height is 5 feet 2 inches, weight is 99 pounds, BMI is 18.2. TPR is 96.8, 73, 18, blood pressure 114/50. HEENT: Negative. NECK: Supple. HEART: Regular rate and rhythm. LUNGS: Clear. ABDOMEN: Aquacel dressings on. EXTREMITIES: Without peripheral edema. DISPOSITION: Discharged to home with home health care. CONDITION: Stable. FOLLOWUP APPOINTMENTS: With Alix Hopkins PA-C, on 04/03/2021 at 10 a.m. and follow up with Dr. Kitty Sandy, 03/30/2021, at 1:50 p.m. A CBC is to be drawn before postop appointment. MEDICATIONS: She is to resume previous home medicationthat she took prior to hospitalization, Tylenol 650 mg q.6 hours p.r.n., Artificial Tears q.i.d., Lipitor 10 mg at bedtime, Tums, Colace 100 mg p.o. scheduled, hydrochlorothiazide 25 mg p.o. daily, Xalatan 0.005% ophthalmic solution, Synthroid 50 mcg p.o. before breakfast, melatonin 9 mg at bedtime, Lopressor 25 mg p.o. b.i.d., Asmanex inhaler as directed, Timoptic 0.25% ophthalmic solution as directed, aspirin 81 mg daily, Norvasc 2.5 p.o. daily, and Flonase 2 puffs inhalation daily. DIET: Regular diet as tolerated. Drink 8 to 10 glasses of water a day. ACTIVITY: No lifting greater than 10 pounds for [address] for [address] Shower/bathing: May shower. Keep operative site clean and dry. Wear abdominal binder for 6 weeks if tolerated. Notify provider if any fever, increased pain, swelling, redness, drainage, nausea, vomiting. SPECIAL INSTRUCTIONS: Use incentive spirometer 10 times every hour while awake for 1 week. Take off Aquacel on 3 days on 03/26/2021. Of note, the patient may need a colonoscopy, but not to be done before 6 to 8 weeks postoperatively. /[id number]
[2021-03-23] MEDS: Timolol Maleate 0.25% Ophth Soln 5 ML Bottle EYEBOTH SCH (08:59)
[2021-03-23 09:02] VITALS: BP 118/58; PULSE 90
== END 2021-03-23 10:26 | disposition home health service (06) | DRG 329 ==
LOC: JP.ED 22:32 → JP.ICU 03-13 10:45 → JP.MS 03-13 18:25
PROVIDERS: ADMIT Internal Medicine; ATTEND Internal Medicine
PROC: 0DJ08ZZ Inspection of Upper Intestinal Tract, Via Natural or Artificial Opening Endoscopic (ICD-10-PCS; 2021-03-13)
PROC: 30233N1 Transfusion of Nonautologous Red Blood Cells into Peripheral Vein, Percutaneous Approach (ICD-10-PCS; 2021-03-13)
PROC: 0DBK0ZZ Excision of Ascending Colon, Open Approach (ICD-10-PCS; principal; 2021-03-17)
PROC: 0DBP0ZZ Excision of Rectum, Open Approach (ICD-10-PCS; 2021-03-17)
PROC: 0DBN0ZZ Excision of Sigmoid Colon, Open Approach (ICD-10-PCS; 2021-03-17)
PROC: 0D1N0ZP Bypass Sigmoid Colon to Rectum, Open Approach (ICD-10-PCS; 2021-03-17)
PROC: 0WQF0ZZ Repair Abdominal Wall, Open Approach (ICD-10-PCS; 2021-03-17)
PROC: 3E0M05Z Introduction of Adhesion Barrier into Peritoneal Cavity, Open Approach (ICD-10-PCS; 2021-03-17)
PROC: 0WQF0ZZ Repair Abdominal Wall, Open Approach (ICD-10-PCS; 2021-03-19)
DX: D64.9 Anemia, unspecified (principal); K92.2 Gastrointestinal hemorrhage, unspecified; K56.2 Volvulus; D62 Acute posthemorrhagic anemia; K43.0 Incisional hernia with obstruction, without gangrene; I24.8 Other forms of acute ischemic heart disease; K56.7 Ileus, unspecified; K66.8 Other specified disorders of peritoneum; E87.6 Hypokalemia; H91.90 Unspecified hearing loss, unspecified ear; E78.00 Pure hypercholesterolemia, unspecified; Z66 Do not resuscitate; H54.7 Unspecified visual loss; E61.1 Iron deficiency; M81.0 Age-related osteoporosis without current pathological fracture; J45.909 Unspecified asthma, uncomplicated; Z88.4 Allergy status to anesthetic agent; M19.90 Unspecified osteoarthritis, unspecified site; I35.0 Nonrheumatic aortic (valve) stenosis; E03.9 Hypothyroidism, unspecified; H35.30 Unspecified macular degeneration; H40.9 Unspecified glaucoma; I48.91 Unspecified atrial fibrillation; I10 Essential (primary) hypertension; Z79.82 Long term (current) use of aspirin; Z79.899 Other long term (current) drug therapy; Z79.890 Hormone replacement therapy; Z90.710 Acquired absence of both cervix and uterus; Z79.01 Long term (current) use of anticoagulants; Z95.2 Presence of prosthetic heart valve; Z86.010 Personal history of colon polyps; Z85.828 Personal history of other malignant neoplasm of skin
CPT/HCPCS: 36415; 36430; 74019; 74019-26; 74177; 80048; 80053; 82607; 82728; 82746; 83735; 83880; 84100; 84484; 85018; 85025; 85027; 86850; 86900; 86901; 86920; 86922; 88302; 88305; 88307; 93005; 94640; 97110-GP; 97116-GP; 97162-GP; 97530-GP; 99285-25; A9270-GY; C9113; J0171; J0330; J0694; J1100; J1170; J1940; J2020; J2185; J2405; J2704; J2710; J2765; J2795; J3010; J3410; J3475; J3480; J3490; J7120; J7121; P9016; Q9967; U0002

== ENCOUNTER 2021-07-16 06:54 | Emergency (ER) | payer MEDICARE, MEDICAID ==
[2021-07-16] MEDS ORDERED: Diltiazem 25 MG/5 ML SDV IVPUSH ONE (07:16)
[2021-07-16 08:11] VITALS: BP 98/55; PULSE 126
[2021-07-16] MEDS ORDERED: Propofol 200 MG/20 ML SDV IVPUSH ONE (08:20)
[2021-07-16] MEDS ORDERED: Sodium Chloride 0.9% 1,000 ML IV SCH (08:45)
== END 2021-07-16 09:59 | disposition home or self-care (01) ==
LOC: JP.ED 06:54
DX: I48.91 Unspecified atrial fibrillation (principal); E78.00 Pure hypercholesterolemia, unspecified; I10 Essential (primary) hypertension; Z88.8 Allergy status to other drugs, medicaments and biological substances; Z79.82 Long term (current) use of aspirin; Z79.899 Other long term (current) drug therapy; Z90.710 Acquired absence of both cervix and uterus
CPT/HCPCS: 36415; 80053; 84443; 84484; 85025; 93005; 93010; 96374; 96375; 99283-25; 99284; J2704; J3490

== ENCOUNTER 2021-09-04 07:01 | Inpatient (IN) | payer MEDICARE, MEDICAID ==
[2021-09-04] MEDS ORDERED: Propofol 200 MG/20 ML SDV IVPUSH ONE (08:04)
[2021-09-04] MEDS ORDERED: Diltiazem 100 MG in Sodium Chloride 0.9% 100 ML IV SCH (08:30)
[2021-09-04] MEDS ORDERED: Diltiazem 25 MG/5 ML SDV IVPUSH ONE (08:30)
[2021-09-04] MEDS ORDERED: Acetaminophen 325 MG Tab PO PRN (09:40)
[2021-09-04] MEDS ORDERED: Sodium Chloride 0.9% 10 ML Syringe FLUSH PRN (09:40)
[2021-09-04] MEDS ORDERED: Albuterol 0.083% 2.5 MG/3 ML Neb Soln NEB PRN (09:40)
[2021-09-04] MEDS ORDERED: Ondansetron 4 MG/2 ML SDV IV PRN (09:40)
[2021-09-04] MEDS ORDERED: Temazepam 15 MG Cap PO PRN (09:40)
[2021-09-04] MEDS ORDERED: Docusate Sodium 100 MG Cap PO PRN (09:40)
[2021-09-04] MEDS ORDERED: Magnesium Hydroxide 400 MG/5 ML Susp 30 ML Cup PO PRN (09:40)
[2021-09-04] MEDS ORDERED: Sodium Chloride 0.9% 1,000 ML IV SCH (09:45)
[2021-09-04 10:18] LABS: CORONAVIRUS COVID-19 NAA NEGATIVE (NEGATIVE)
[2021-09-04] MEDS: Aspirin 81 MG Tab.Chew PO SCH (11:38)
[2021-09-04] MEDS: Furosemide 20 MG/2 ML VIAL IVPUSH SCH ×2 (12:54→20:02)
[2021-09-04] MEDS: Potassium Chloride 20 MEQ Tab.ER PO SCH (15:03)
[2021-09-04] MEDS: Acetaminophen/HYDROcodone 325-5 MG Tab PO PRN ×2 (15:04→20:03)
[2021-09-04] MEDS ORDERED: Bisacodyl 5 MG Tab PO ONE ×2 (17:00→20:00)
[2021-09-04] MEDS ORDERED: Polyethylene Glycol 3350 Powder 238 GM Bot PO ONE (17:00)
[2021-09-04] MEDS ORDERED: Sodium Chloride 0.9% 500 ML IV ONE (23:18)
[2021-09-05] MEDS: Sodium Chloride 0.9% 250 ML IV SCH ×3 (01:35→05:07)
[2021-09-05] MEDS: Acetaminophen/HYDROcodone 325-5 MG Tab PO PRN ×2 (06:02→12:54)
[2021-09-05] MEDS ORDERED: Propofol 200 MG/20 ML SDV ONE (08:33)
[2021-09-05] MEDS ORDERED: Meropenem 500 MG in Sodium Chloride 0.9% 50 ML IV ONE (10:30)
[2021-09-05] MEDS: Furosemide 20 MG/2 ML VIAL IVPUSH SCH ×3 (10:36→20:55)
[2021-09-05] MEDS: Aspirin 81 MG Tab.Chew PO SCH ×2 (10:36→12:15)
[2021-09-05] MEDS: Potassium Chloride 20 MEQ Tab.ER PO SCH ×2 (10:36→12:15)
[2021-09-05] MEDS ORDERED: Barium Sulfate 105% w/v Susp 1,900 ML Bottle RECTAL ONE (11:53)
[2021-09-05] MEDS: Diltiazem 120 MG Cap.CD PO SCH (16:14)
[2021-09-05] MEDS: Metoprolol Tartrate 25 MG Tab PO SCH (16:14)
[2021-09-05] MEDS: Latanoprost 0.005% Ophth Soln 2.5 ML Bottle EYEBOTH SCH (21:07)
[2021-09-05] MEDS ORDERED: Hypromellose 0.3% Ophth Soln 15 ML Bottle EYEBOTH PRN (22:00)
[2021-09-06] MEDS: Metoprolol Tartrate 25 MG Tab PO SCH ×2 (03:45→16:07)
[2021-09-06] MEDS: Levothyroxine 50 MCG Tab PO SCH (08:49)
[2021-09-06] MEDS: Aspirin 81 MG Tab.Chew PO SCH (08:50)
[2021-09-06] MEDS: Diltiazem 120 MG Cap.CD PO SCH (08:51)
[2021-09-06] MEDS: Timolol Maleate 0.25% Ophth Soln 5 ML Bottle EYEBOTH SCH (08:52)
[2021-09-06] MEDS: Ferrous Sulfate 325 MG Tab PO SCH (08:52)
[2021-09-06] MEDS: Potassium Chloride 20 MEQ Tab.ER PO SCH (08:52)
[2021-09-06] MEDS: Furosemide 20 MG/2 ML VIAL IVPUSH SCH (08:53)
[2021-09-06] MEDS ORDERED: Aspirin 81 MG Tab.EC PO SCH (09:00)
[2021-09-06] MEDS ORDERED: Mometasone Furoate HFA 200 mcg/Puff 13 GM Inhaler INH SCH (09:00)
[2021-09-06] MEDS ORDERED: TRAVOPROST TOP SCH (09:00)
[2021-09-06] MEDS ORDERED: Sodium Ferric Gluconate Cmplex 250 MG in Sodium Chloride 0.9% 100 ML IV ONE (10:00)
[2021-09-06] MEDS ORDERED: Potassium Chloride 20 MEQ Tab.ER PO ONE (17:00)
[2021-09-06] MEDS ORDERED: Furosemide 40 MG/4 ML VIAL IVPUSH ONE (19:00)
[2021-09-06] MEDS: Acetaminophen/HYDROcodone 325-5 MG Tab PO PRN (20:12)
[2021-09-06] MEDS: Mometasone Furoate HFA 200 mcg/Puff 13 GM Inhaler INH SCH (20:13)
[2021-09-06] MEDS: Latanoprost 0.005% Ophth Soln 2.5 ML Bottle EYEBOTH SCH (20:15)
[2021-09-07] MEDS: Metoprolol Tartrate 25 MG Tab PO SCH ×2 (04:06→16:25)
[2021-09-07] MEDS: Acetaminophen/HYDROcodone 325-5 MG Tab PO PRN ×2 (04:13→21:11)
[2021-09-07] MEDS: Levothyroxine 50 MCG Tab PO SCH (07:59)
[2021-09-07] MEDS: Mometasone Furoate HFA 200 mcg/Puff 13 GM Inhaler INH SCH ×2 (08:06→21:11)
[2021-09-07] MEDS: Aspirin 81 MG Tab.Chew PO SCH (08:09)
[2021-09-07] MEDS: Diltiazem 120 MG Cap.CD PO SCH (08:09)
[2021-09-07] MEDS: Ferrous Sulfate 325 MG Tab PO SCH (08:14)
[2021-09-07] MEDS: Potassium Chloride 20 MEQ Tab.ER PO SCH (08:15)
[2021-09-07] MEDS: Timolol Maleate 0.25% Ophth Soln 5 ML Bottle EYEBOTH SCH (08:16)
[2021-09-07] MEDS ORDERED: Furosemide 40 MG/4 ML VIAL IVPUSH ONE (11:53)
[2021-09-07] MEDS ORDERED: Sodium Ferric Gluconate Cmplex 250 MG in Sodium Chloride 0.9% 100 ML IV ONE (13:00)
[2021-09-07] MEDS ORDERED: Cyanocobalamin (Vitamin B12) 1,000 MCG/ML SDV IM ONE (13:30)
[2021-09-07] MEDS: Latanoprost 0.005% Ophth Soln 2.5 ML Bottle EYEBOTH SCH (21:10)
[2021-09-08] MEDS: Metoprolol Tartrate 25 MG Tab PO SCH ×2 (04:23→15:40)
[2021-09-08] MEDS: Mometasone Furoate HFA 200 mcg/Puff 13 GM Inhaler INH SCH (07:16)
[2021-09-08] MEDS: Levothyroxine 50 MCG Tab PO SCH (07:52)
[2021-09-08] MEDS: Aspirin 81 MG Tab.Chew PO SCH (07:59)
[2021-09-08] MEDS: Potassium Chloride 20 MEQ Tab.ER PO SCH (08:01)
[2021-09-08] MEDS: Ferrous Sulfate 325 MG Tab PO SCH (08:03)
[2021-09-08] MEDS: Diltiazem 120 MG Cap.CD PO SCH (08:04)
[2021-09-08] MEDS: Timolol Maleate 0.25% Ophth Soln 5 ML Bottle EYEBOTH SCH (08:06)
[2021-09-08 16:27] VITALS: BP 124/48; PULSE 60
== END 2021-09-08 16:01 | disposition home health service (06) | DRG 310 ==
LOC: JP.ED 07:01 → JP.ICU 09:41
PROVIDERS: ADMIT Internal Medicine; ATTEND Hospitalist
PROC: 0DJD8ZZ Inspection of Lower Intestinal Tract, Via Natural or Artificial Opening Endoscopic (ICD-10-PCS; principal; 2021-09-05)
DX: I48.91 Unspecified atrial fibrillation (principal); D50.0 Iron deficiency anemia secondary to blood loss (chronic); H91.90 Unspecified hearing loss, unspecified ear; K64.9 Unspecified hemorrhoids; R53.1 Weakness; Z66 Do not resuscitate; H35.30 Unspecified macular degeneration; E78.00 Pure hypercholesterolemia, unspecified; H54.7 Unspecified visual loss; I10 Essential (primary) hypertension; J45.909 Unspecified asthma, uncomplicated; M19.90 Unspecified osteoarthritis, unspecified site; M81.0 Age-related osteoporosis without current pathological fracture; E03.9 Hypothyroidism, unspecified; I35.0 Nonrheumatic aortic (valve) stenosis; Z90.710 Acquired absence of both cervix and uterus; Z95.2 Presence of prosthetic heart valve; Z85.828 Personal history of other malignant neoplasm of skin; Z86.19 Personal history of other infectious and parasitic diseases; Z86.010 Personal history of colon polyps; Z88.4 Allergy status to anesthetic agent; Z79.82 Long term (current) use of aspirin; Z79.890 Hormone replacement therapy; Z88.8 Allergy status to other drugs, medicaments and biological substances; Z86.16 Personal history of COVID-19; Z79.899 Other long term (current) drug therapy; Z20.822 Contact with and (suspected) exposure to COVID-19
CPT/HCPCS: 0241U; 36415; 71046; 74270; 80048; 81001; 82728; 83550; 83735; 83880; 84439; 84443; 84484; 85025; 85610; 85730; 86140; 93005; 93010; 94640; 96365; 96376; 97162; 97530; 97535; 99284; 99285; A9270-GY; J1940; J2185; J2704; J2916; J3420; J3490; J7040; J7050

== ENCOUNTER 2022-06-18 16:37 | Emergency (ER) | payer MEDICARE, MEDICAID ==
[2022-06-18 19:21] VITALS: BP 176/81; PULSE 79
== END 2022-06-18 19:01 | disposition home or self-care (01) ==
LOC: JP.ED 16:37
DX: E87.1 Hypo-osmolality and hyponatremia (principal); I48.91 Unspecified atrial fibrillation; E78.00 Pure hypercholesterolemia, unspecified; I10 Essential (primary) hypertension; J45.909 Unspecified asthma, uncomplicated; E03.9 Hypothyroidism, unspecified; M19.90 Unspecified osteoarthritis, unspecified site; Z79.82 Long term (current) use of aspirin; Z79.899 Other long term (current) drug therapy; Z88.8 Allergy status to other drugs, medicaments and biological substances
CPT/HCPCS: 70450; 99284

== ENCOUNTER 2023-07-04 22:18 | Emergency (ER) | payer MEDICARE, MEDICAID ==
[2023-07-04 22:27] VITALS: BP 191/98; PULSE 93
[2023-07-04 22:54] LABS: BASOPHILS ABSOLUTE AUTO 0.03 K/uL (0.00-0.10); BASOPHILS PERCENT AUTO 0.3 % (0.1-1.3); EOSINOPHILS ABSOLUTE AUTO 0.04 K/uL (0.00-0.40); EOSINOPHILS PERCENT AUTO 0.4 % (0.0-5.4); HEMATOCRIT 36.4 % (34.3-46.0); HEMOGLOBIN 11.9 g/dL (11.2-15.5); IMMATURE GRAN PERCENT AUTO 0.9 % (0.0-0.7); LYMPHOCYTES ABSOLUTE AUTO 1.11 K/uL (0.8-3.3); LYMPHOCYTES PERCENT AUTO 10.1 % (11.4-47.7); MEAN CORPUSCULAR HEMOGLOBIN 27.4 pg (31.6-35.5); MEAN CORPUSCULAR HGB CONC 32.7 g/dL (31.6-35.5); MEAN CORPUSCULAR VOLUME 83.9 fL (81.4-99.0); MONOCYTES ABSOLUTE AUTO 0.81 K/uL (0.20-0.90); MONOCYTES PERCENT AUTO 7.4 % (3.3-12.6); NEUTROPHILS PERCENT AUTO 80.9 % (40.0-78.1); PLATELET COUNT,PLT 333 K/uL (130-375); RED BLOOD CELL COUNT 4.34 M/uL (3.77-5.24)
[2023-07-04 23:07] LABS: ANION GAP 14.9 mmol/L (5.0-14.0); CALCIUM 8.7 mg/dL (8.5-10.1); CREATININE 0.6 mg/dL (0.6-1.0); EST CRCL DRUG DOSING (CG) 51.09 mL/min; POTASSIUM,K 3.9 mmol/L (3.6-5.2)
== END 2023-07-05 00:49 | disposition home or self-care (01) ==
LOC: JP.ED 22:18
DX: R04.0 Epistaxis (principal); I48.91 Unspecified atrial fibrillation; E03.9 Hypothyroidism, unspecified; J45.909 Unspecified asthma, uncomplicated; Z95.1 Presence of aortocoronary bypass graft; Z86.16 Personal history of COVID-19; Z79.899 Other long term (current) drug therapy; Z79.01 Long term (current) use of anticoagulants; Z91.041 Radiographic dye allergy status; Z88.8 Allergy status to other drugs, medicaments and biological substances
CPT/HCPCS: 36415; 71250; 80048; 85025; 99284

== ENCOUNTER 2024-06-04 10:30 | Emergency (ER) | payer MEDICARE, MEDICAID ==
[2024-06-04 11:02] LABS: BASOPHILS ABSOLUTE AUTO 0.04 K/uL (0.00-0.10); BASOPHILS PERCENT AUTO 0.4 % (0.1-1.3); EOSINOPHILS ABSOLUTE AUTO 0.06 K/uL (0.00-0.40); EOSINOPHILS PERCENT AUTO 0.7 % (0.0-5.4); HEMATOCRIT 42.3 % (34.3-46.0); HEMOGLOBIN 14.1 g/dL (11.2-15.5); IMMATURE GRAN ABSOLUTE AUTO 0.05 K/uL (0.00-0.23); IMMATURE GRAN PERCENT AUTO 0.6 % (0.0-0.7); LYMPHOCYTES ABSOLUTE AUTO 1.32 K/uL (0.8-3.3); LYMPHOCYTES PERCENT AUTO 14.7 % (11.4-47.7); MEAN CORPUSCULAR HEMOGLOBIN 31.5 pg (31.6-35.5); MEAN CORPUSCULAR HGB CONC 33.3 g/dL (31.6-35.5); MEAN CORPUSCULAR VOLUME 94.4 fL (81.4-99.0); MONOCYTES ABSOLUTE AUTO 0.81 K/uL (0.20-0.90); MONOCYTES PERCENT AUTO 9.1 % (3.3-12.6); NEUTROPHILS ABSOLUTE AUTO 6.67 K/uL (1.0-7.6); NEUTROPHILS PERCENT AUTO 74.5 % (40.0-78.1); PLATELET COUNT,PLT 196 K/uL (130-375); RED BLOOD CELL COUNT 4.48 M/uL (3.77-5.24)
[2024-06-04] MEDS: Sodium Chloride 0.9% 300 ML IV ONE (11:11)
[2024-06-04] MEDS: Sodium Chloride 0.9% 10 ML Syringe FLUSH PRN (11:11)
[2024-06-04] MEDS: Diltiazem 25 MG/5 ML SDV IVPUSH ONE (11:11)
[2024-06-04 11:16] LABS: A/G RATIO 1.1 (1.2-2.2); ALANINE AMINOTRANSFERASE,ALT 144 U/L (12-78); ALBUMIN 3.9 g/dL (3.4-5.0); ALKALINE PHOSPHATASE 111 U/L (46-116); ASPARTATE AMNIOTRANSFERASE,AST 94 U/L (15-37); BILIRUBIN TOTAL 0.9 mg/dL (0.2-1.0); BLOOD UREA NITROGEN,BUN 19 mg/dL (7-18); CARBON DIOXIDE,CO2 28 mmol/L (21-32); CHLORIDE,CL 94 mmol/L (100-108); CREATININE 0.7 mg/dL (0.6-1.0); EST CRCL DRUG DOSING (CG) 44.78 mL/min; ESTIMATED GFR 84 mL/min (>60); GLUCOSE RANDOM 144 mg/dL (74-106); POTASSIUM,K 3.9 mmol/L (3.6-5.2); PROTEIN TOTAL,TP 7.4 g/dL (6.4-8.2); SODIUM,NA 129 mmol/L (140-148); TROPONIN I HIGH SENSITIVITY 13.9 pg/mL (<=60.3)
[2024-06-04 11:17] LABS: ANION GAP 10.9 mmol/L (5.0-14.0)
[2024-06-04] MEDS: Metoprolol Tartrate 25 MG Tab PO ONE (12:33)
[2024-06-04 12:36] VITALS: BP 124/94; PULSE 109
== END 2024-06-04 12:57 | disposition home or self-care (01) ==
LOC: JP.ED 10:30
DX: I48.91 Unspecified atrial fibrillation (principal); I10 Essential (primary) hypertension; E03.9 Hypothyroidism, unspecified; Z91.041 Radiographic dye allergy status; Z88.8 Allergy status to other drugs, medicaments and biological substances; Z79.51 Long term (current) use of inhaled steroids; Z79.899 Other long term (current) drug therapy; Z79.890 Hormone replacement therapy; Z95.0 Presence of cardiac pacemaker
CPT/HCPCS: 36415; 80053; 83605; 84443; 84484; 85025; 96374; 99284-25; A9270-GY; J3490

== ENCOUNTER 2024-06-06 02:52 | Emergency (ER) | payer MEDICARE, MEDICAID ==
[2024-06-06 03:21] LABS: CALCIUM 8.5 mg/dL (8.5-10.1); CREATININE 0.8 mg/dL (0.6-1.0); EST CRCL DRUG DOSING (CG) 39.02 mL/min; POTASSIUM,K 3.9 mmol/L (3.6-5.2)
[2024-06-06 03:22] LABS: ANION GAP 12.9 mmol/L (5.0-14.0)
[2024-06-06] MEDS: Sodium Chloride 0.9% 10 ML Syringe FLUSH PRN (03:35)
[2024-06-06] MEDS: Diltiazem 100 MG in Sodium Chloride 0.9% 100 ML IV SCH (03:35)
[2024-06-06] MEDS: Metoprolol Tartrate 25 MG Tab PO ONE (06:14)
[2024-06-06 07:43] VITALS: BP 126/78; PULSE 75
== END 2024-06-06 07:44 ==
LOC: JP.ED 02:52
DX: I48.91 Unspecified atrial fibrillation (principal); I10 Essential (primary) hypertension; E03.9 Hypothyroidism, unspecified; Z88.8 Allergy status to other drugs, medicaments and biological substances; Z79.890 Hormone replacement therapy; Z79.899 Other long term (current) drug therapy; Z90.710 Acquired absence of both cervix and uterus
CPT/HCPCS: 36415; 80048; 93005; 96365; 96366; 99285; A9270; J3490